=== PATIENT | female | born 1935 | race Caucasian/White ===

== ENCOUNTER 2017-11-09 09:39 | Inpatient (IN) ==
[2017-11-09 10:19] LABS: Baso % (Auto) 0.3 % (0.0-2.0); Eos # (Auto) 0.1 th/mm3 (0.0-0.4); Eos % (Auto) 1.1 % (0.0-4.0); Hematocrit 40.5 % (35.0-46.0); Hemoglobin 14.3 gm/dL (11.6-15.3); Lymph # (Auto) 0.8 th/mm3 (1.0-4.8); Lymph % (Auto) 13.1 % (9.0-44.0); Mean Corpuscular HGB Conc 35.3 % (32.0-36.0); Mean Corpuscular Hemoglobin 33.5 pg (27.0-34.0); Mean Corpuscular Volume 94.8 fL (80.0-100.0); Mean Platelet Volume 7.3 fL (7.0-11.0); Mono # (Auto) 0.5 th/mm3 (0.0-0.9); Mono % (Auto) 8.6 % (0.0-8.0); Neut # (Auto) 4.5 th/mm3 (1.8-7.7); Neut % (Auto) 76.9 % (16.0-70.0); Platelet Count 230 th/mm3 (150-450); Red Blood Count 4.27 mil/mm3 (4.00-5.30); Red Cell Distribution Width 12.9 % (11.6-17.2); White Blood Count 5.8 th/mm3 (4.0-11.0)
[2017-11-09 10:40] LABS: Bacteria,Urine Rare /hpf; Bilirubin,Urine Negative (Negative); Clarity,Urine Hazy (Clear); Color,Urine Yellow (Yellw/Straw); Glucose,Urine (UA) Negative (Negative); Leukocyte Esterase,Urine Large (Negative); Mucus,Urine Few /lpf (Occasional); Nitrite,Urine Positive (Negative); Specific Gravity,Urine 1.008 (1.002-1.035); Squamous Epithelial Cell,Urine <1 /hpf (0-5)
[2017-11-09 10:47] LABS: Alanine Aminotransferase 17 U/L (10-53); Albumin 3.2 g/dL (3.4-5.0); Anion Gap 8 meq/L (5-15); Aspartate Aminotransferase 17 U/L (15-37); Blood Urea Nitrogen 10 mg/dL (7-18); Calcium 8.4 mg/dL (8.5-10.1); Carbon Dioxide 28.7 meq/L (21.0-32.0); Chloride 95 meq/L (98-107); Glomerular Filtration Rate 73 mL/min (>89); Glucose,Random 120 mg/dL (74-106); Potassium 3.4 meq/L (3.5-5.1); Sodium 132 meq/L (136-145)
[2017-11-09 10:51] LABS: Alkaline Phosphatase 70 U/L (45-117); Total Protein 6.8 g/dL (6.4-8.2)
--- NOTE | 2017-11-09 11:13 | CT ---
EXAM DATE: 11/09/2017 11:07 AM EDT AGE/SEX: 82 years / Female INDICATIONS: Altered mental status fell eight days ago CLINICAL DATA: This is the patient's initial encounter. Patient reports that signs and symptoms have been present for 1 day and indicates a pain score of 0/10. MEDICAL/SURGICAL HISTORY: Hypertension. None. RADIATION DOSE: 33.86 CTDI (mGy) COMPARISON: [facility], CT HEAD W/O CONTRAST, 11/01/2017. . TECHNIQUE: CT of the head without contrast. Using automated exposure control and adjustment of the mA and/or kV according to patient size, radiation dose was kept as low as reasonably achievable to ob tain optimal diagnostic quality images. DICOM format image data is available electronically for revi ew and comparison. 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 There is no evidence of intracranial mass or hemor rhage. There is nothing to suggest acute infarction. The ventricles are symmetric and normal. Extracr anial structures are benign and intact. CONCLUSION: No acute intracranial injury . Electronically signed by: Willie Matamoros MD 11/09/2017 11:11 AM EDT
--- NOTE | 2017-11-09 11:37 | ED ---
HPI General Chief Complaint: Altered Mental Status Stated Complaint: Poss AMS Time Seen by Provider: 11/09/17 10:13 Source: patient Mode of arrival: ambulatory Limitations: no limitations History of Present Illness HPI narrative: 82-year-old female arrives due to altered mental status. In the ED exam room the patient offers no meaningful history. History is unobtainable based on bedside interview. Family reports increased incontinence. After speaking the patient's daughter we learned that she has had an abrupt decline in mental status. The patient lives at home with her son. The patient recently was lost to follow-up with Dr. Bardales as he retired. Related Data Home Medications Medication Instructions Recorded Confirmed hydrocodone-ibuprofen 1 tab PO TID 08/28/17 11/01/17 losartan 100 mg PO DAILY 08/28/17 11/01/17 sertraline 100 mg PO DAILY 08/28/17 11/01/17 aspirin 81 mg PO DAILY 11/01/17 11/01/17 simvastatin 40 mg PO DAILY 11/01/17 11/01/17 Allergies Allergy/AdvReac Type Severity Reaction Status Date / Time acetaminophen Allergy Severe Rash Verified 11/01/17 08:46 ciprofloxacin Allergy Severe UNKNOWN Verified 11/01/17 08:46 codeine Allergy Severe Rash Verified 11/01/17 08:46 diclofenac Allergy Severe UNKNOWN Verified 11/01/17 08:46 dicyclomine Allergy Severe UNKNOWN Verified 11/01/17 08:46 doxycycline Allergy Severe UNKNOWN Verified 11/01/17 08:46 duloxetine Allergy Severe UNKNOWN Verified 11/01/17 08:46 etodolac Allergy Severe Rash Verified 11/01/17 08:46 fexofenadine Allergy Severe UNKNOWN Verified 11/01/17 08:46 flurbiprofen Allergy Severe Rash Verified 11/01/17 08:46 gabapentin Allergy Severe UNKNOWN Verified 11/01/17 08:46 ibuprofen Allergy Severe Rash Verified 11/01/17 08:46 indomethacin Allergy Severe Rash Verified 11/01/17 08:46 ketoprofen Allergy Severe Rash Verified 11/01/17 08:46 ketorolac Allergy Severe Rash Verified 11/01/17 08:46 levofloxacin Allergy Severe UNKNOWN Verified 11/01/17 08:46 meloxicam Allergy Severe UNKNOWN Verified 11/01/17 08:46 morphine Allergy Severe Rash Verified 11/01/17 08:46 naproxen Allergy Severe Rash Verified 11/01/17 08:46 oxaprozin Allergy Severe Rash Verified 11/01/17 08:46 penicillin G Allergy Severe Rash Verified 11/01/17 08:46 pentazocine Allergy Severe UNKNOWN Verified 11/01/17 08:46 pregabalin Allergy Severe INCREASE Verified 11/01/17 08:46 BLOOD PRESSURE rabeprazole Allergy Severe UNKNOWN Verified 11/01/17 08:46 risedronate sodium Allergy Severe UNKNOWN Verified 11/01/17 08:46 Sulfa (Sulfonamide Allergy Severe Rash Verified 11/01/17 08:46 Antibiotics) zolpidem Allergy Severe UNKNOWN Verified 11/01/17 08:46 Review of Systems ROS Unobtainable ROS Unobtainable: unobtainable due to mental condition PMFSH Medical History Medical History History of hypercholesterolemia (Acute) History of hypertension (Acute) Surgical History Surgical History Status post surgical manipulation of ankle joint (Acute) History of right knee surgery (Acute) History of left knee surgery (Acute) Family History Family History Other Osteoarthritis Social History Social History Substance History: No History of Abuse Second Hand Smoke Exposure: No Smoking Status: Former smoker Tobacco Type: Cigarettes How Often Do You Have a Drink Containing Alcohol: Never Recent Travel in [facility] within the Last 8 Weeks: No Recent Out of Country Travel within the Last 8 Weeks: No Immunization History Tetanus Immunization: Unable to Assess Hx Influenza Vaccine This Season: No Exam Narrative Exam Narrative: GENERAL: 82-year-old female well-nourished well-developed no acute distress SKIN: Focused skin assessment warm/dry. HEAD: Atraumatic. Normocephalic. EYES: Pupils equal and round. No scleral icterus. No injection or drainage. ENT: No nasal bleeding or discharge. Mucous membranes pink and moist. NECK: Trachea midline. No JVD. CARDIOVASCULAR: Regular rate and rhythm. No murmur appreciated. RESPIRATORY: No accessory muscle use. Clear to auscultation. Breath sounds equal bilaterally. GASTROINTESTINAL: Soft. Minimal suprapubic tenderness palpation. MUSCULOSKELETAL: No obvious deformities. No clubbing. No cyanosis. No edema. NEUROLOGICAL: Patient answers questions. Memory is severely impaired. No focal cranial nerve deficit. Motor function is normal times all 4 extremities. PSYCHIATRIC: Reasonably cooperative. Pleasant. Course Initial Documented Vital Signs Temperature 98.1 F 11/09/17 09:57 Pulse Rate 64 11/09/17 09:57 Respiratory Rate 16 11/09/17 09:57 Blood Pressure 204/83 H 11/09/17 09:57 Pulse Oximetry 98 11/09/17 09:57 Last Documented Vital Signs Temperature 98.1 F 11/09/17 09:57 Pulse Rate 69 11/09/17 13:30 Respiratory Rate 19 11/09/17 13:30 Blood Pressure 188/122 H 11/09/17 13:30 Pulse Oximetry 100 11/09/17 13:30 Medical Decision Making MDM Narrative Medical decision making narrative: The patient has urinary tract infection with delirium. Patient will be admitted. Discussed with Dr. Johnston. 1 dose Rocephin started. Medical Screen Exam Complete: Yes Emergency Medical Condition: Yes Lab Data Lab results reviewed: Yes I reviewed the patient's lab results. Lab results narrative: EKG shows sinus rhythm with a rate of 60 normal axis intervals are noted in 3 and AVS which are nonspecific Urinalysis shows a UTI LFTs normal The patient received a dose of Rocephin here. Result diagrams: 11/09/17 10:00 11/09/17 10:00 Lab Results 11/09/17 11/09/17 11/09/17 Range/Units 10:00 10:00 10:00 WBC 5.8 (4.0-11.0) th/mm3 RBC 4.27 (4.00-5.30) mil/mm3 Hgb 14.3 (11.6-15.3) gm/dL Hct 40.5 (35.0-46.0) % MCV 94.8 (80.0-100.0) fL MCH 33.5 (27.0-34.0) pg MCHC 35.3 (32.0-36.0) % RDW 12.9 (11.6-17.2) % Plt Count 230 (150-450) th/mm3 MPV 7.3 (7.0-11.0) fL Neut % (Auto) 76.9 H (16.0-70.0) % Lymph % (Auto) 13.1 (9.0-44.0) % [place] % (Auto) 8.6 H (0.0-8.0) % Eos % (Auto) 1.1 (0.0-4.0) % Baso % (Auto) 0.3 (0.0-2.0) % Neut # (Auto) 4.5 (1.8-7.7) th/mm3 Lymph # (Auto) 0.8 L (1.0-4.8) th/mm3 [place] # (Auto) 0.5 (0.0-0.9) th/mm3 Eos # (Auto) 0.1 (0.0-0.4) th/mm3 Baso # (Auto) 0.0 (0.0-0.2) th/mm3 WBC Differential . Differential Comment Auto diff final Sodium 132 L (136-145) meq/L Potassium 3.4 L (3.5-5.1) meq/L Chloride 95 L (98-107) meq/L Carbon Dioxide 28.7 (21.0-32.0) meq/L Anion Gap 8 (5-15) meq/L BUN 10 (7-18) mg/dL Creatinine 0.76 (0.50-1.00) mg/dL Estimated GFR 73 L (>89) mL/min Random Glucose 120 H (74-106) mg/dL Calcium 8.4 L (8.5-10.1) mg/dL Total Bilirubin 0.5 (0.2-1.0) mg/dL AST 17 (15-37) U/L ALT 17 (10-53) U/L Alkaline Phosphatase 70 (45-117) U/L Troponin I Less than 0.02 L (0.02-0.05) ng/mL Total Protein 6.8 (6.4-8.2) g/dL Albumin 3.2 L (3.4-5.0) g/dL Urine Color Yellow (Yellw/Straw) Urine Clarity Hazy H (Clear) Urine pH 6.0 (5.0-8.5) Ur Specific [place] 1.008 (1.002-1.035) Urine Protein Negative (Neg-Trace) mg/dL Urine Glucose (UA) Negative (Negative) mg/dL Urine Ketones Negative (Negative) mg/dL Urine Occult Blood Negative (Negative) Urine Nitrate Positive H (Negative) Urine Bilirubin Negative (Negative) Urine Urobilinogen Less than 2 (Less than 2) mg/dL Ur Leukocyte Esterase Large H (Negative) Urine RBC 1 (0-3) /hpf Urine WBC 13 H (0-5) /hpf Urine WBC Clumps Rare H (None) Ur Squamous Epith Cells <1 (0-5) /hpf Urine Bacteria Rare H (None) /hpf Urine Mucus Few H (Occasional) /lpf Micro UA Comment Cath-culture ind Ur Microscopic Review Not Reportable Urine Culture Comments Cath-cult indicated Imaging Data Radiologist's impression: Head CT 11/09/17 10:13 CONCLUSION: No acute intracranial injury . Discharge Plan Discharge Disposition Patient Disposition: 30 Still Patient Physicians Team ED Provider: Julio Fletcher Primary Care Provider: UNKNOWN, Attending Provider: Julio Johnston Discharge Interventions Interventions: Vital Signs Last Done: 11/09/17 10:20 Status ED Status: Admitted Patient
--- NOTE | 2017-11-09 12:53 | P.HPIM ---
History of Present Illness Primary Care Physician: UNKNOWN History of Present Illness: Mrs. Park is an 82 year old female. She is brought in today due to progressive confussion. Sepsis is not present, but she has a UTI, which is likely causing a metabolic encephalopathy. Additionally, she has HTN Urgency. This might represet missed Losartan or reactivity with UTI. Patient is confused and not able to contribute to history. - Diagnosis (1) Urinary tract infection (2) Hypertensive urgency (3) Metabolic encephalopathy Review of Systems unobtainable due to mental condition, unobtainable due to mental status PMF - History History Provided By: Patient - Medical History Medical History: Medical History (Last Updated 11/01/17 @ 08:54 by Kika Rain RN) History of hypercholesterolemia (Acute) History of hypertension (Acute) - Surgical History Surgical History: Surgical History (Last Updated 11/01/17 @ 08:54 by Kika Rain RN) Status post surgical manipulation of ankle joint (Acute) History of right knee surgery (Acute) History of left knee surgery (Acute) - Family History Family History: Family History (Last Updated 11/09/17 @ 12:47 by Julio Johnston MD) Other Osteoarthritis - Tobacco History Second Hand Smoke Exposure: No Smoking Status: Former smoker Tobacco Type: Cigarettes - Alcohol History How Often Do You Have a Drink Containing Alcohol: Never - Substance Use History Substance History: No History of Abuse - Travel History Recent Travel in the [place] Within the Last 8 Weeks: No Recent Travel Out of the Country Within the Last 8 Weeks: No - Immunization History Tetanus Immunization: Unable to Assess Hx Influenza Vaccine This Season: No Medications and Allergies Active Medications: Active Medications Al Hydroxide/Mg Hydroxide (Milk Of Robert Carrillo) 30 ml PO Q12H PRN PRN Reason: Mild Constipation Clonidine HCl (Catapres) 0.1 mg PO Q6H PRN PRN Reason: SYS BP GREATER THAN 160 MMHG Heparin Sodium (Porcine) (Heparin Inj) 5,000 units SQ Q12H KI Sodium Chloride (Ns Inj) 1,000 mls @ 75 mls/hr IV.CONT .[id number] KI Non-Formulary Medication (Aspirin) 81 mg PO DAILY KI Non-Formulary Medication (Losartan [Losartan]) 100 mg PO DAILY KI Non-Formulary Medication (Simvastatin) 40 mg PO DAILY KI Ondansetron HCl (Zofran Inj) 4 mg IV.PUSH Q6H PRN PRN Reason: NAUSEA OR VOMITING Sertraline HCl (Zoloft) 100 mg PO DAILY KI Allergies Allergy/AdvReac Type Severity Reaction Status Date / Time acetaminophen Allergy Severe Rash Verified 11/01/17 08:46 ciprofloxacin Allergy Severe UNKNOWN Verified 11/01/17 08:46 codeine Allergy Severe Rash Verified 11/01/17 08:46 diclofenac Allergy Severe UNKNOWN Verified 11/01/17 08:46 dicyclomine Allergy Severe UNKNOWN Verified 11/01/17 08:46 doxycycline Allergy Severe UNKNOWN Verified 11/01/17 08:46 duloxetine Allergy Severe UNKNOWN Verified 11/01/17 08:46 etodolac Allergy Severe Rash Verified 11/01/17 08:46 fexofenadine Allergy Severe UNKNOWN Verified 11/01/17 08:46 flurbiprofen Allergy Severe Rash Verified 11/01/17 08:46 gabapentin Allergy Severe UNKNOWN Verified 11/01/17 08:46 ibuprofen Allergy Severe Rash Verified 11/01/17 08:46 indomethacin Allergy Severe Rash Verified 11/01/17 08:46 ketoprofen Allergy Severe Rash Verified 11/01/17 08:46 ketorolac Allergy Severe Rash Verified 11/01/17 08:46 levofloxacin Allergy Severe UNKNOWN Verified 11/01/17 08:46 meloxicam Allergy Severe UNKNOWN Verified 11/01/17 08:46 morphine Allergy Severe Rash Verified 11/01/17 08:46 naproxen Allergy Severe Rash Verified 11/01/17 08:46 oxaprozin Allergy Severe Rash Verified 11/01/17 08:46 penicillin G Allergy Severe Rash Verified 11/01/17 08:46 pentazocine Allergy Severe UNKNOWN Verified 11/01/17 08:46 pregabalin Allergy Severe INCREASE Verified 11/01/17 08:46 BLOOD PRESSURE rabeprazole Allergy Severe UNKNOWN Verified 11/01/17 08:46 risedronate sodium Allergy Severe UNKNOWN Verified 11/01/17 08:46 Sulfa (Sulfonamide Allergy Severe Rash Verified 11/01/17 08:46 Antibiotics) zolpidem Allergy Severe UNKNOWN Verified 11/01/17 08:46 Home Medications Medication Instructions Recorded Confirmed Type hydrocodone-ibuprofen 1 tab PO TID 08/28/17 11/01/17 History losartan 100 mg PO DAILY 08/28/17 11/01/17 History sertraline 100 mg PO DAILY 08/28/17 11/01/17 History aspirin 81 mg PO DAILY 11/01/17 11/01/17 History simvastatin 40 mg PO DAILY 11/01/17 11/01/17 History Exam Vital signs: Vital Signs 11/09/17 09:57 11/09/17 10:01 11/09/17 10:07 Temperature 98.1 F Pulse Rate 64 62 Respiratory Rate 16 Blood Pressure 204/83 H Pulse Oximetry 98 98 98 11/09/17 10:20 Temperature Pulse Rate Respiratory Rate Blood Pressure 187/79 H Pulse Oximetry Intake & Output 11/08/17 11/09/17 11/09/17 18:59 06:59 18:59 Intake Total 100 / 100 Balance 100 / 100 Weight 52.163 kg Intake: IV 100 / 100 Rocephin Inj 1,000 MG In NS Inj 100 / 100 100 ML @ 200 mls/hr IV.SIG ONCE ONE Rx#:[id number] Narrative: GENERAL: NAD, A&Ox1 HEAD: Normocephalic. NECK: Supple, trachea midline. No lymphadenopathy. EYES: No scleral icterus. No injection or drainage. CARDIOVASCULAR: Regular rate and rhythm without murmurs, gallops, or rubs. RESPIRATORY: Breath sounds equal bilaterally. No accessory muscle use. GASTROINTESTINAL: Abdomen soft, non-tender, nondistended. MUSCULOSKELETAL: No cyanosis, or edema. SKIN: Warm and dry. NEURO: No focal neurological deficits. Results - Labs CBC & Chem 7: 11/09/17 10:00 11/09/17 10:00 Labs: Short CBC 11/09/17 Range/Units 10:00 WBC 5.8 (4.0-11.0) th/mm3 Hgb 14.3 (11.6-15.3) gm/dL Hct 40.5 (35.0-46.0) % Plt Count 230 (150-450) th/mm3 BMP 11/09/17 10:00 Sodium 132 L Potassium 3.4 L Chloride 95 L Carbon Dioxide 28.7 BUN 10 Creatinine 0.76 Calcium 8.4 L Cardiac Enzymes 11/09/17 Range/Units 10:00 Troponin I Less than 0.02 L (0.02-0.05) ng/mL Liver Function 11/09/17 Range/Units 10:00 Total Bilirubin 0.5 (0.2-1.0) mg/dL AST 17 (15-37) U/L ALT 17 (10-53) U/L Alkaline Phosphatase 70 (45-117) U/L Albumin 3.2 L (3.4-5.0) g/dL Urine 11/09/17 Range/Units 10:00 Urine Color Yellow (Yellw/Straw) Urine Clarity Hazy H (Clear) Urine pH 6.0 (5.0-8.5) Ur Specific [place] 1.008 (1.002-1.035) Urine Protein Negative (Neg-Trace) mg/dL Urine Glucose (UA) Negative (Negative) mg/dL - Imaging Impressions Head CT 11/09/17 10:13 CONCLUSION: No acute intracranial injury . Caprini VTE Risk Assessment Caprini VTE Risk Assessment: Moderate/High Risk (score >= 2) Caprini Risk Assessment Model: Point Value = 1 Point Value = 2 Point Value = 3 Point Value = 5 Age 41-60 Minor surgery BMI > 25 kg/m2 Swollen legs Varicose veins or History of unexplained or recurrent spontaneous Oral contraceptives or hormone replacement Sepsis (< 1 month) Serious lung disease, including pneumonia (< 1 month) Abnormal pulmonary function Acute myocardial infarction Congestive heart failure (< 1 month) History of inflammatory bowel disease Medical patient at bed rest Age 61-74 Arthroscopic surgery Major open surgery (> 45 min) Laparoscopic surgery (> 45 min) Malignancy Confined to bed (> 72 hours) Immobilizing plaster cast Central venous access Age >= 75 History of VTE Family history of VTE Factor V Leiden Prothrombin [id number] Lupus anticoagulant Anticardiolipin antibodies Elevated serum homocysteine Heparin-induced thrombocytopenia Other congenital or acquired thrombophilia Stroke (< 1 month) Elective arthroplasty Hip, pelvis, or leg fracture Acute spinal cord injury (< 1 month) Prophylaxis Regimen: Total Risk Factor Score Risk Level Prophylaxis Regimen 0-1 Low Early ambulation 2 Moderate Order ONE of the following: *Sequential Compression Device (SCD) *Heparin 5000 units SQ BID 3-4 Higher Order ONE of the following medications: *Heparin 5000 units SQ TID *Enoxaparin/Lovenox 40 mg SQ daily (WT < 150 kg, CrCl > 30 mL/min) *Enoxaparin/Lovenox 30 mg SQ daily (WT < 150 kg, CrCl > 10-29 mL/min) *Enoxaparin/Lovenox 30 mg SQ BID (WT < 150 kg, CrCl > 30 mL/min) AND/OR *Sequential Compression Device (SCD) 5 or more Highest Order ONE of the following medications: *Heparin 5000 units SQ TID (Preferred with Epidurals) *Enoxaparin/Lovenox 40 mg SQ daily (WT < 150 kg, CrCl > 30 mL/min) *Enoxaparin/Lovenox 30 mg SQ daily (WT < 150 kg, CrCl > 10-29 mL/min) *Enoxaparin/Lovenox 30 mg SQ BID (WT < 150 kg, CrCl > 30 mL/min) AND *Sequential Compression Device (SCD) Assessment and Plan - Assessment (1) Urinary tract infection Code(s): N39.0 - Urinary tract infection, site not specified Status: Acute (2) Hypertensive urgency Code(s): I16.0 - Hypertensive urgency Status: Acute (3) Metabolic encephalopathy Code(s): G93.41 - Metabolic encephalopathy Status: Acute - Plan 82-year-old female admitted secondary to urinary tract infection with encephalopathy and hypertensive urgency Urinary tract infection No sepsis Continue Rocephin as a treatment Probiotics Follow cultures Hypertensive Urgency Likely reactive (UTI) Possible missed medication Provide a dose of Losartan for today As needed clonidine Follow blood pressures Metabolic encephalopathy Likely related to urinary tract infection Supportive care Treat infection as above DVT prophylaxis Heparin
[2017-11-09] MEDS: Sod Chloride 0.9% Inj 1,000 ML IV.CONT SCH (13:29)
[2017-11-09] MEDS: Lactobacillus Acidophilus/L. Spores Tablet PO SCH ×2 (13:29→17:49)
[2017-11-09] MEDS: Heparin - SQ 10,000 UNITS/ML Vial SQ SCH (17:49)
--- NOTE | 2017-11-09 18:32 | ECG ---
Date Performed: 11/09/2017 Time Performed: 10:26:29 PTAGE: 82 years EKG: Sinus rhythm NORMAL ECG PREVIOUS TRACING : 11/01/2017 10.10 Since the previous tracing, no significant change noted DOCTOR: Guerrero Vasquez Interpretating Date/Time 11/09/2017 18:30:35
[2017-11-10] MEDS: Heparin - SQ 10,000 UNITS/ML Vial SQ SCH ×2 (03:55→14:25)
[2017-11-10] MEDS: Sod Chloride 0.9% Inj 1,000 ML IV.CONT SCH ×2 (06:16→19:11)
[2017-11-10 08:27] LABS: Baso % (Auto) 0.7 % (0.0-2.0); Eos # (Auto) 0.1 th/mm3 (0.0-0.4); Eos % (Auto) 1.7 % (0.0-4.0); Hematocrit 36.8 % (35.0-46.0); Hemoglobin 13.2 gm/dL (11.6-15.3); Lymph # (Auto) 1.1 th/mm3 (1.0-4.8); Lymph % (Auto) 19.5 % (9.0-44.0); Mean Corpuscular HGB Conc 35.8 % (32.0-36.0); Mean Corpuscular Hemoglobin 34.3 pg (27.0-34.0); Mean Corpuscular Volume 95.8 fL (80.0-100.0); Mean Platelet Volume 7.5 fL (7.0-11.0); Mono # (Auto) 0.5 th/mm3 (0.0-0.9); Mono % (Auto) 9.1 % (0.0-8.0); Neut # (Auto) 3.8 th/mm3 (1.8-7.7); Platelet Count 216 th/mm3 (150-450); Red Blood Count 3.84 mil/mm3 (4.00-5.30); Red Cell Distribution Width 12.4 % (11.6-17.2); White Blood Count 5.6 th/mm3 (4.0-11.0)
[2017-11-10] MEDS: Lactobacillus Acidophilus/L. Spores Tablet PO SCH ×3 (08:42→17:28)
[2017-11-10] MEDS: Sertraline 100 MG Tablet PO SCH (08:43)
[2017-11-10 08:51] LABS: Albumin 2.8 g/dL (3.4-5.0); Anion Gap 8 meq/L (5-15); Aspartate Aminotransferase 14 U/L (15-37); Blood Urea Nitrogen 11 mg/dL (7-18); Calcium 8.3 mg/dL (8.5-10.1); Carbon Dioxide 25.2 meq/L (21.0-32.0); Chloride 102 meq/L (98-107); Glomerular Filtration Rate Greater Than 89 mL/min (>89); Glucose,Random 103 mg/dL (74-106); Potassium 3.5 meq/L (3.5-5.1); Sodium 135 meq/L (136-145)
[2017-11-10 08:52] LABS: Alanine Aminotransferase 15 U/L (10-53)
[2017-11-10 08:54] LABS: Alkaline Phosphatase 64 U/L (45-117); Total Protein 5.9 g/dL (6.4-8.2)
--- NOTE | 2017-11-10 09:36 | P.PNIM ---
Subjective Interval history: Patient remains confused/encephalopathic. Not stable for discharge to home. She is unable to provide any history. Blood pressures have improved. Physical Exam Vital signs: Vital Signs 11/09/17 09:57 11/09/17 10:01 11/09/17 10:07 Temperature 98.1 F Pulse Rate 64 62 Respiratory Rate 16 Blood Pressure 204/83 H Pulse Oximetry 98 98 98 11/09/17 10:20 11/09/17 13:30 11/09/17 16:00 Temperature 97.4 F L Pulse Rate 69 66 Respiratory Rate 19 18 Blood Pressure 187/79 H 188/122 H 154/69 H Pulse Oximetry 100 96 11/09/17 20:00 11/10/17 00:00 11/10/17 04:00 Temperature 97.6 F 97.3 F L 98.3 F Pulse Rate 67 73 Respiratory Rate 20 16 Blood Pressure 150/58 H 174/74 H 148/67 H Pulse Oximetry 94 L 94 L 96 11/10/17 08:00 Temperature 97.3 F L Pulse Rate 68 Respiratory Rate 18 Blood Pressure 157/57 H Pulse Oximetry 95 Intake & Output 11/09/17 11/10/17 11/10/17 18:59 06:59 18:59 Intake Total 220 / 220 1240 / 1240 Balance 220 / 220 1240 / 1240 Weight 52.163 kg Intake: IV 100 / 100 1000 / 1000 NS Inj 1,000 ML @ 75 mls/hr IV. 1000 / 1000 CONT .[id number] [facility] Rx#:[id number] Rocephin Inj 1,000 MG In NS Inj 100 / 100 100 ML @ 200 mls/hr IV.SIG ONCE ONE Rx#:[id number] Oral 120 / 120 240 / 240 Other: # Voids 1 # Incontinent Voids 2 # Urine Diapers 2 Narrative: GENERAL: NAD, A&Ox1 HEAD: Normocephalic. NECK: Supple, trachea midline. No lymphadenopathy. EYES: No scleral icterus. No injection or drainage. CARDIOVASCULAR: Regular rate and rhythm without murmurs, gallops, or rubs. RESPIRATORY: Breath sounds equal bilaterally. No accessory muscle use. GASTROINTESTINAL: Abdomen soft, non-tender, nondistended. MUSCULOSKELETAL: No cyanosis, or edema. SKIN: Warm and dry. NEURO: No focal neurological deficits. Results - Labs CBC & Chem 7: 11/10/17 07:26 11/10/17 07:26 Laboratory Results - last 24 hr 11/09/17 11/09/17 11/09/17 10:00 10:00 10:00 WBC 5.8 RBC 4.27 Hgb 14.3 Hct 40.5 MCV 94.8 MCH 33.5 MCHC 35.3 RDW 12.9 Plt Count 230 MPV 7.3 Neut % (Auto) 76.9 H Lymph % (Auto) 13.1 [place] % (Auto) 8.6 H Eos % (Auto) 1.1 Baso % (Auto) 0.3 Neut # (Auto) 4.5 Lymph # (Auto) 0.8 L [place] # (Auto) 0.5 Eos # (Auto) 0.1 Baso # (Auto) 0.0 WBC Differential . Differential Comment Auto diff final Sodium 132 L Potassium 3.4 L Chloride 95 L Carbon Dioxide 28.7 Anion Gap 8 BUN 10 Creatinine 0.76 Estimated GFR 73 L Random Glucose 120 H Calcium 8.4 L Total Bilirubin 0.5 AST 17 ALT 17 Alkaline Phosphatase 70 Troponin I Less than 0.02 L Total Protein 6.8 Albumin 3.2 L Urine Color Yellow Urine Clarity Hazy H Urine pH 6.0 Ur Specific [place] 1.008 Urine Protein Negative Urine Glucose (UA) Negative Urine Ketones Negative Urine Occult Blood Negative Urine Nitrate Positive H Urine Bilirubin Negative Urine Urobilinogen Less than 2 Ur Leukocyte Esterase Large H Urine RBC 1 Urine WBC 13 H Urine WBC Clumps Rare H Ur Squamous Epith Cells <1 Urine Bacteria Rare H Urine Mucus Few H Micro UA Comment Cath-culture ind Ur Microscopic Review Not Reportable Urine Culture Comments Cath-cult indicated 11/10/17 11/10/17 07:26 07:26 WBC 5.6 RBC 3.84 L Hgb 13.2 Hct 36.8 MCV 95.8 MCH 34.3 H MCHC 35.8 RDW 12.4 Plt Count 216 MPV 7.5 Neut % (Auto) 69.0 Lymph % (Auto) 19.5 [place] % (Auto) 9.1 H Eos % (Auto) 1.7 Baso % (Auto) 0.7 Neut # (Auto) 3.8 Lymph # (Auto) 1.1 [place] # (Auto) 0.5 Eos # (Auto) 0.1 Baso # (Auto) 0.0 WBC Differential . Differential Comment Auto diff final Sodium 135 L Potassium 3.5 Chloride 102 Carbon Dioxide 25.2 Anion Gap 8 BUN 11 Creatinine 0.59 Estimated GFR Greater than 89 Random Glucose 103 Calcium 8.3 L Total Bilirubin 0.3 AST 14 L ALT 15 Alkaline Phosphatase 64 Troponin I Total Protein 5.9 L D Albumin 2.8 L Urine Color Urine Clarity Urine pH Ur Specific [place] Urine Protein Urine Glucose (UA) Urine Ketones Urine Occult Blood Urine Nitrate Urine Bilirubin Urine Urobilinogen Ur Leukocyte Esterase Urine RBC Urine WBC Urine WBC Clumps Ur Squamous Epith Cells Urine Bacteria Urine Mucus Micro UA Comment Ur Microscopic Review Urine Culture Comments - Imaging Impressions Head CT 11/09/17 10:13 CONCLUSION: No acute intracranial injury . Assessment and Plan - Assessment (1) Urinary tract infection Code(s): N39.0 - Urinary tract infection, site not specified Status: Acute (2) Hypertensive urgency Code(s): I16.0 - Hypertensive urgency Status: Acute (3) Metabolic encephalopathy Code(s): G93.41 - Metabolic encephalopathy Status: Acute - Plan 82-year-old female admitted secondary to urinary tract infection with encephalopathy and hypertensive urgency Blood pressures have improved. Encephalopathy is not improved. Patient not medically stable for discharge at this point. Continue supportive care monitor for improvement in her encephalopathy. Urinary tract infection No sepsis Continue Rocephin as a treatment Probiotics Follow cultures Hypertensive Urgency Improved Continue losartan. As needed clonidine Follow blood pressures Metabolic encephalopathy Likely related to urinary tract infection Supportive care Treat infection as above DVT prophylaxis Heparin
[2017-11-11] MEDS: Heparin - SQ 10,000 UNITS/ML Vial SQ SCH ×2 (02:51→15:34)
[2017-11-11] MEDS: Sod Chloride 0.9% Inj 1,000 ML IV.CONT SCH ×2 (04:22→21:56)
[2017-11-11] MEDS: Sertraline 100 MG Tablet PO SCH (08:17)
[2017-11-11] MEDS: Lactobacillus Acidophilus/L. Spores Tablet PO SCH ×3 (08:20→21:02)
--- NOTE | 2017-11-11 11:21 | P.PNIM ---
Subjective Interval history: Mental status is improving compared to admit. Patient complains of weakness. She does not feel like she can walk. Physical Exam Vital signs: Vital Signs 11/10/17 12:00 11/10/17 15:22 11/10/17 20:00 Temperature 98.0 F 97.3 F L 97.6 F Pulse Rate 64 69 80 Respiratory Rate 18 17 16 Blood Pressure 183/80 H 194/83 H 147/67 H Pulse Oximetry 94 L 94 L 97 11/11/17 00:00 11/11/17 04:00 11/11/17 08:00 Temperature 97.9 F 97.9 F 97.8 F Pulse Rate 70 65 67 Respiratory Rate 18 16 18 Blood Pressure 178/79 H 122/74 208/90 H Pulse Oximetry 97 98 97 11/11/17 08:47 Temperature Pulse Rate Respiratory Rate Blood Pressure Pulse Oximetry 98 Intake & Output 11/10/17 11/11/17 11/11/17 18:59 06:59 18:59 Intake Total 600 / 600 1720 / 1720 Balance 600 / 600 1720 / 1720 Intake: IV 100 / 100 1000 / 1000 NS Inj 1,000 ML @ 75 mls/hr IV. 1000 / 1000 CONT .[id number] KI Rx#:[id number] Rocephin Inj 1,000 MG In NS Inj 100 / 100 100 ML @ 200 mls/hr IV.SIG Q24H KI Rx#:[id number] Oral 500 / 500 720 / 720 Other: # Voids 4 # Urine Diapers 3 Narrative: GENERAL: NAD, A&Ox1 HEAD: Normocephalic. NECK: Supple, trachea midline. No lymphadenopathy. EYES: No scleral icterus. No injection or drainage. CARDIOVASCULAR: Regular rate and rhythm without murmurs, gallops, or rubs. RESPIRATORY: Breath sounds equal bilaterally. No accessory muscle use. GASTROINTESTINAL: Abdomen soft, non-tender, nondistended. MUSCULOSKELETAL: No cyanosis, or edema. SKIN: Warm and dry. NEURO: No focal neurological deficits. Results - Labs CBC & Chem 7: 11/10/17 07:26 11/10/17 07:26 Laboratory Results - last 24 hr 11/09/17 10:00 Urine Color Yellow Urine Clarity Hazy H Urine pH 6.0 Ur Specific [place] 1.008 Urine Protein Negative Urine Glucose (UA) Negative Urine Ketones Negative Urine Occult Blood Negative Urine Nitrate Positive H Urine Bilirubin Negative Urine Urobilinogen Less than 2 Ur Leukocyte Esterase Large H Urine RBC 1 Urine WBC 13 H Urine WBC Clumps Rare H Ur Squamous Epith Cells <1 Urine Bacteria Rare H Urine Mucus Few H Micro UA Comment Cath-culture ind Urine Culture Comments Cath-cult indicated Microbiology 11/09/17 10:00 Clean Catch Urine Urine Culture - Preliminary gram negative rods Assessment and Plan - Assessment (1) Urinary tract infection Code(s): N39.0 - Urinary tract infection, site not specified Status: Acute (2) Hypertensive urgency Code(s): I16.0 - Hypertensive urgency Status: Acute (3) Metabolic encephalopathy Code(s): G93.41 - Metabolic encephalopathy Status: Acute - Plan 82-year-old female admitted secondary to urinary tract infection with encephalopathy and hypertensive urgency Initiate physical therapy. Encephalopathy is improving today. Mental status not back to baseline yet. Urinary tract infection No sepsis Continue Rocephin as a treatment Probiotics Follow cultures Hypertensive Urgency Labile Confusion is limiting PO options of treatment Continue losartan. As needed clonidine clonidine patch Follow blood pressures Metabolic encephalopathy Likely related to urinary tract infection Supportive care Treat infection as above DVT prophylaxis Heparin
[2017-11-12] MEDS: Heparin - SQ 10,000 UNITS/ML Vial SQ SCH ×2 (02:55→14:11)
[2017-11-12] MEDS: Lactobacillus Acidophilus/L. Spores Tablet PO SCH ×3 (08:30→17:09)
[2017-11-12] MEDS: Sertraline 100 MG Tablet PO SCH (08:30)
[2017-11-12] MEDS: Sod Chloride 0.9% Inj 1,000 ML IV.CONT SCH (08:30)
--- NOTE | 2017-11-12 12:59 | P.PN ---
Subjective Interval history: Patient doing well. She is feeding, voiding, and stooling well. Patient reports that she feels that she is ready to go home and does not know why she has to stay here. She has no overnight concerns. Physical Exam Vital signs: Vital Signs 11/11/17 17:20 11/11/17 18:07 11/11/17 20:00 Temperature 97.2 F L 98.1 F Pulse Rate 63 64 Respiratory Rate 16 16 Blood Pressure 177/93 H 169/72 H Pulse Oximetry 98 98 98 11/12/17 00:00 11/12/17 04:00 11/12/17 08:00 Temperature 97.2 F L 98.4 F 97.8 F Pulse Rate 60 80 63 Respiratory Rate 16 22 18 Blood Pressure 146/76 H 160/87 H 156/97 H Pulse Oximetry 97 94 L 98 Intake & Output 11/11/17 11/12/17 11/12/17 18:59 06:59 18:59 Intake Total 1240 / 1240 580 / 580 1100 / 1100 Balance 1240 / 1240 580 / 580 1100 / 1100 Intake: IV 1000 / 1000 100 / 100 1100 / 1100 NS Inj 1,000 ML @ 75 mls/hr IV. 900 / 900 100 / 100 1000 / 1000 CONT .[id number] KI Rx#:[id number] Rocephin Inj 1,000 MG In NS Inj 100 / 100 100 / 100 100 ML @ 200 mls/hr IV.SIG Q24H KI Rx#:[id number] Oral 240 / 240 480 / 480 Other: # Voids 2 # Incontinent Voids 1 # Urine Diapers 3 Date of Last Bowel Movement 11/11/17 11/11/17 # Bowel Movements 1 Narrative: GENERAL: thin, female, in NAD. HEAD: Normocephalic. NECK: Supple, trachea midline. No lymphadenopathy. EYES: No scleral icterus. No injection or drainage. CARDIOVASCULAR: Regular rate and rhythm without murmurs, gallops, or rubs. RESPIRATORY: Breath sounds equal bilaterally. No accessory muscle use. GASTROINTESTINAL: Abdomen soft, non-tender, nondistended. MUSCULOSKELETAL: No cyanosis, or edema. SKIN: Warm and dry. NEURO: AAOx2. Results - Labs CBC & Chem 7: 11/10/17 07:26 11/10/17 07:26 Microbiology 11/09/17 10:00 Clean Catch Urine Urine Culture - Final Enterobacter cloacae Assessment and Plan - Assessment (1) Urinary tract infection Code(s): N39.0 - Urinary tract infection, site not specified Status: Acute (2) Hypertensive urgency Code(s): I16.0 - Hypertensive urgency Status: Resolved (3) Metabolic encephalopathy Code(s): G93.41 - Metabolic encephalopathy Status: Acute - Plan 82-year-old CF admitted secondary to urinary tract infection with encephalopathy and hypertensive urgency, HD#4 1. Urinary tract infection, Enterobacter Sensitive to Cephalosporins per Urine Cx Stop Rocephin today and transition to Keflex 500mg BID to completed total of 7 days Probiotics 2. Hypertensive Urgency- improved BP still mildly elevated Cont. Losartan 100mg QD, start Norvasc 5mg QD Clonidine patch PRN Cont. to monitor BP's 3. Metabolic encephalopathy- improved Likely worsened by acute urinary tract infection Supportive care Case mgmt contacted son on HIPAA do determine baseline as patient was receiving assistance with ADL's prior to admission 4. HLD: cont. statin 5. Hyponatremia: improved today, likely due to SSRI. 6. DVT prophylaxis: Heparin
[2017-11-12] MEDS: amLODIPine 5 MG Tablet PO SCH (17:09)
[2017-11-13] MEDS: Sod Chloride 0.9% Inj 1,000 ML IV.CONT SCH ×2 (01:42→10:41)
[2017-11-13] MEDS: Heparin - SQ 10,000 UNITS/ML Vial SQ SCH ×2 (05:41→15:32)
[2017-11-13] MEDS: Lactobacillus Acidophilus/L. Spores Tablet PO SCH ×3 (08:38→17:16)
[2017-11-13] MEDS: amLODIPine 5 MG Tablet PO SCH (08:38)
[2017-11-13] MEDS: Sertraline 100 MG Tablet PO SCH (08:39)
[2017-11-13 09:51] LABS: Hematocrit 40.9 % (35.0-46.0); Hemoglobin 14.3 gm/dL (11.6-15.3); Mean Corpuscular Hemoglobin 33.5 pg (27.0-34.0); Mean Corpuscular Volume 95.7 fL (80.0-100.0); Mean Platelet Volume 7.5 fL (7.0-11.0); Platelet Count 233 th/mm3 (150-450); Red Blood Count 4.28 mil/mm3 (4.00-5.30); Red Cell Distribution Width 12.6 % (11.6-17.2); White Blood Count 5.9 th/mm3 (4.0-11.0)
[2017-11-13 10:14] LABS: Albumin 3.1 g/dL (3.4-5.0); Anion Gap 9 meq/L (5-15); Aspartate Aminotransferase 15 U/L (15-37); Blood Urea Nitrogen 8 mg/dL (7-18); Calcium 8.7 mg/dL (8.5-10.1); Carbon Dioxide 28.6 meq/L (21.0-32.0); Chloride 96 meq/L (98-107); Glomerular Filtration Rate Greater Than 89 mL/min (>89); Glucose,Random 115 mg/dL (74-106); Magnesium 2.1 mg/dL (1.5-2.5); Potassium 3.3 meq/L (3.5-5.1); Sodium 134 meq/L (136-145)
[2017-11-13 10:16] LABS: Alanine Aminotransferase 16 U/L (10-53)
[2017-11-13 10:18] LABS: Alkaline Phosphatase 73 U/L (45-117); Total Protein 6.6 g/dL (6.4-8.2)
--- NOTE | 2017-11-13 13:56 | P.PNIM ---
Subjective Interval history: Patient seen and examined for follow-up of encephalopathy and UTI. Patient remains very confused. She rambles on incoherently and yells when she is touched. No meaningful history obtained. Physical Exam Vital signs: Vital Signs 11/12/17 14:30 11/12/17 19:35 11/12/17 23:30 Temperature 97.4 F L 97.4 F L 98.2 F Pulse Rate 76 77 68 Respiratory Rate 18 18 18 Blood Pressure 166/87 H 178/84 H 176/77 H Pulse Oximetry 98 98 96 11/13/17 02:00 11/13/17 04:14 11/13/17 08:00 Temperature 97.3 F L 97.4 F L Pulse Rate 61 68 Respiratory Rate 18 18 20 Blood Pressure 166/72 H 182/85 H Pulse Oximetry 97 99 11/13/17 12:00 Temperature 97.2 F L Pulse Rate 64 Respiratory Rate 20 Blood Pressure 157/67 H Pulse Oximetry 94 L Intake & Output 11/12/17 11/13/17 11/13/17 18:59 06:59 18:59 Intake Total 1100 / 1100 1000 / 1000 Balance 1100 / 1100 1000 / 1000 Intake: IV 1100 / 1100 1000 / 1000 NS Inj 1,000 ML @ 75 mls/hr IV. 1000 / 1000 1000 / 1000 CONT .[id number] KI Rx#:[id number] Rocephin Inj 1,000 MG In NS Inj 100 / 100 100 ML @ 200 mls/hr IV.SIG Q24H KI Rx#:[id number] Other: # Voids 4 # Incontinent Voids 1 Date of Last Bowel Movement 11/12/17 11/12/17 11/12/17 # Bowel Movements 1 Narrative: GENERAL: Thin elderly female resting in bed in [facility]. SKIN: Warm and dry. HEART: RRR no m/r/g. LUNGS: CTAB without wheezes or crackles. ABDOMEN: +BS, soft, NT, ND. EXTREMITIES: No LE edema. NEURO: Awake but not oriented at all. Grossly confused. Results - Labs CBC & Chem 7: 11/13/17 08:44 11/13/17 08:44 Laboratory Results - last 24 hr 11/13/17 11/13/17 08:44 08:44 WBC 5.9 RBC 4.28 Hgb 14.3 Hct 40.9 MCV 95.7 MCH 33.5 MCHC 35.0 RDW 12.6 Plt Count 233 MPV 7.5 Sodium 134 L Potassium 3.3 L Chloride 96 L Carbon Dioxide 28.6 Anion Gap 9 BUN 8 Creatinine 0.53 Estimated GFR Greater than 89 Random Glucose 115 H Calcium 8.7 Magnesium 2.1 Total Bilirubin 0.4 AST 15 ALT 16 Alkaline Phosphatase 73 Total Protein 6.6 D Albumin 3.1 L Microbiology 11/09/17 10:00 Clean Catch Urine Urine Culture - Final Enterobacter cloacae Assessment and Plan - Assessment (1) Urinary tract infection Code(s): N39.0 - Urinary tract infection, site not specified Status: Acute (2) Hypertensive urgency Code(s): I16.0 - Hypertensive urgency Status: Resolved (3) Metabolic encephalopathy Code(s): G93.41 - Metabolic encephalopathy Status: Acute - Plan 82-year-old female with dementia, hypertension, and hyperlipidemia admitted secondary to urinary tract infection with encephalopathy and hypertensive urgency. 1. UTI UA on admission notable for positive nitrates and leukocyte esterase Culture growing Enterobacter sensitive to cephalosporins Continue Keflex Probiotics while on antibiotics 2. Hypertensive BP still mildly elevated Continue losartan Increase Norvasc to 10 mg Clonidine as needed Continue monitor 3. Metabolic encephalopathy Patient remains confused Likely worsened by acute urinary tract infection CT head on admission negative Supportive care Off of restraints as of this morning. Will need to be off restraints 24 hours before acceptance into sniff 4. Hyperlipidemia Continue statin 5. Chronic hyponatremia Stable Likely secondary to SSRI 6. Hypokalemia Start daily KCl 20 mEq 7. 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
[2017-11-14] MEDS: Sod Chloride 0.9% Inj 1,000 ML IV.CONT SCH (00:36)
[2017-11-14] MEDS: Heparin - SQ 10,000 UNITS/ML Vial SQ SCH ×2 (03:00→15:59)
[2017-11-14 07:25] LABS: Potassium 3.2 meq/L (3.5-5.1)
[2017-11-14 07:27] LABS: Calcium 8.9 mg/dL (8.5-10.1); Carbon Dioxide 26.2 meq/L (21.0-32.0)
[2017-11-14] MEDS: amLODIPine 10 MG Tablet PO SCH (08:47)
[2017-11-14] MEDS: Lactobacillus Acidophilus/L. Spores Tablet PO SCH ×3 (08:47→17:52)
[2017-11-14] MEDS: Sertraline 100 MG Tablet PO SCH (08:48)
--- NOTE | 2017-11-14 08:55 | P.PNIM ---
Subjective Interval history: Pt seen and examined ambulating the halls with PT and again back in her room. She is completely confused. She does not speak in sentences. She speaks out random numbers and letters and occasionally "[place]." She does not follow directions. She screams when I try and examine her. She keeps her covers drawn over her face when she is in bed or in the chair. Per RN, patient sang the ABC song for four hours straight in the night. Physical Exam Vital signs: Vital Signs 11/13/17 12:00 11/13/17 16:00 11/13/17 20:00 Temperature 97.2 F L 97.3 F L 97.5 F L Pulse Rate 64 62 66 Respiratory Rate 20 20 19 Blood Pressure 157/67 H 167/74 H 175/77 H Pulse Oximetry 94 L 98 99 11/14/17 00:00 11/14/17 04:00 11/14/17 08:00 Temperature 97.5 F L 97.6 F 97.0 F L Pulse Rate 69 67 81 Respiratory Rate 18 18 19 Blood Pressure 141/63 H 166/89 H 178/77 H Pulse Oximetry 95 94 L 98 Intake & Output 11/13/17 11/14/17 11/14/17 18:59 06:59 18:59 Intake Total 600 / 600 Balance 600 / 600 Intake: Oral 600 / 600 Other: # Voids 2 Date of Last Bowel Movement 11/12/17 11/12/17 11/12/17 Narrative: GENERAL: Thin elderly female sitting in chair holding covers over her face. SKIN: Warm and dry. HEART: RRR no m/r/g. LUNGS: CTAB without wheezes or crackles. EXTREMITIES: No LE edema. NEURO: Awake but not oriented at all. Grossly confused. Results - Labs CBC & Chem 7: 11/13/17 08:44 11/14/17 06:39 Laboratory Results - last 24 hr 11/13/17 11/13/17 11/14/17 08:44 08:44 06:39 WBC 5.9 RBC 4.28 Hgb 14.3 Hct 40.9 MCV 95.7 MCH 33.5 MCHC 35.0 RDW 12.6 Plt Count 233 MPV 7.5 Sodium 134 L 136 Potassium 3.3 L 3.2 L Chloride 96 L 98 Carbon Dioxide 28.6 26.2 Anion Gap 9 12 BUN 8 14 Creatinine 0.53 0.75 Estimated GFR Greater than 89 74 L Random Glucose 115 H 120 H Calcium 8.7 8.9 Magnesium 2.1 Total Bilirubin 0.4 AST 15 ALT 16 Alkaline Phosphatase 73 Total Protein 6.6 D Albumin 3.1 L Assessment and Plan - Assessment (1) Urinary tract infection Code(s): N39.0 - Urinary tract infection, site not specified Status: Acute (2) Hypertensive urgency Code(s): I16.0 - Hypertensive urgency Status: Resolved (3) Metabolic encephalopathy Code(s): G93.41 - Metabolic encephalopathy Status: Acute - Plan 82-year-old female with dementia, hypertension, and hyperlipidemia admitted secondary to urinary tract infection with encephalopathy and hypertensive urgency. 1. UTI UA on admission notable for positive nitrates and leukocyte esterase Culture growing Enterobacter sensitive to cephalosporins Had been transitioned to PO Keflex but now refusing meds so will restart Rocephin 2. Metabolic encephalopathy Patient remains significantly confused, per neighbors that visited yesterday this is new and has not responded to treatment of urinary infection CT head on admission negative Now refusing PO meds and not eating Palliative care consulted We will also consult neurology to evaluate for any other causes of acutely worsening dementia She lost her in the past year and depression could be presenting as pseudodementia but she is already being treated with Zoloft Check RPR, thiamine, B12, and TSH 3. Hypertension BP still mildly elevated Continue losartan and Norvasc Clonidine as needed Continue monitor Refusing PO now. Will provide Vasotec IV PRN 4. Hyperlipidemia Continue statin 5. Chronic hyponatremia Stable Likely secondary to SSRI 6. Hypokalemia Replete with KCl in IV fluids 7. 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 Patient with ongoing confusion and incoherence. Not participating in care.
[2017-11-14] MEDS ORDERED: KCL 10 mEq/D5W/NaCl 0.45% Inj 1,000 ML IV.CONT SCH (12:30)
[2017-11-14] MEDS: KCL 20 mEq/D5W/NaCl 0.45% Inj 1,000 ML IV.CONT SCH (13:10)
[2017-11-14 15:08] LABS: Thyroid Stimulating Hormone 1.58 uIU/mL (0.358-3.740)
--- NOTE | 2017-11-14 16:46 | P.CONNEU ---
History of Present Illness Service: Neurology Primary Care Provider: UNKNOWN Chief Complaint: Confusion History of Present Illness: 82-year-old female admitted for confusion. Irene to be related to urinary tract infection and hypertension. Her confusion has persisted neurology was consulted for further evaluation. Patient is a poor historian no family members available at present. Unclear if there is any underlying history of dementia. She had a CT brain scan which did not show any acute lesion. Review of Systems All other systems reviewed negative except as stated in HPI [facility] - History History Provided By: Patient - Medical History Medical History: Medical History (Last Reviewed 11/15/17 @ 07:57 by Sheyla Bundy) Irritable bowel syndrome (Acute) Osteoarthritis (Acute) Barretts esophagus (Acute) History of hypercholesterolemia (Acute) History of hypertension (Acute) H. pylori infection H/O: hysterectomy Normal colonoscopy - Surgical History Surgical History: Surgical History (Last Updated 11/14/17 @ 15:03 by [employer] TECHNICIAN) History of esophagogastroduodenoscopy (EGD) History of left knee surgery History of right knee surgery Status post surgical manipulation of ankle joint - Family History Family History: Family History (Last Reviewed 11/15/17 @ 07:58 by Sheyla Bundy) Other Osteoarthritis - Tobacco History Second Hand Smoke Exposure: No Smoking Status: Cognitive impairment Tobacco Type: Cigarettes - Alcohol History How Often Do You Have a Drink Containing Alcohol: Unable to Obtain - Substance Use History Substance History: No History of Abuse - Travel History Recent Travel in the [place] Within the Last 8 Weeks: No Recent Travel Out of the Country Within the Last 8 Weeks: No - Immunization History Tetanus Immunization: Unable to Assess Hx Influenza Vaccine This Season: No Medications and Allergies Active Medications: Active Medications Al Hydroxide/Mg Hydroxide (Milk Of Robert Carrillo) 30 ml PO Q12H PRN PRN Reason: Mild Constipation Amlodipine Besylate (Norvasc) 10 mg PO DAILY [facility] Last Admin: 11/14/17 08:47 Dose: Not Given Aspirin (Aspirin Chew) 81 mg PO DAILY [facility] Last Admin: 11/14/17 08:47 Dose: Not Given Clonidine HCl (Catapres) 0.1 mg PO Q6H PRN PRN Reason: SYS BP GREATER THAN 160 [facility] Last Admin: 11/13/17 08:38 Dose: 0.1 mg Enalaprilat (Vasotec Inj) 1.25 mg IV.PUSH Q6H PRN PRN Reason: SBP>160, DBP>90 Last Admin: 11/14/17 08:38 Dose: 1.25 mg Heparin Sodium (Porcine) (Heparin Inj) 5,000 units SQ Q12H [facility] Last Admin: 11/14/17 15:59 Dose: 5,000 units Ceftriaxone Sodium 1,000 mg/ (Sodium Chloride) 100 mls @ 200 mls/hr IV.SIG Q24H [facility] Last Infusion: 11/14/17 13:07 Dose: Infused Potassium Chloride/Dextrose/Sod Cl (D5w/1/2ns + Kcl 20 Meq Inj) 1,000 mls @ 84 mls/hr IV.CONT .[id number] [facility] Last Admin: 11/14/17 13:10 Dose: 84 mls/hr Lactobacillus Acidophilus (Lactinex) 1 tab PO TID [facility] Last Admin: 11/14/17 13:10 Dose: Not Given Losartan Potassium (Cozaar) 100 mg PO DAILY [facility] Last Admin: 11/14/17 08:47 Dose: Not Given Ondansetron HCl (Zofran Inj) 4 mg IV.PUSH Q6H PRN PRN Reason: NAUSEA OR VOMITING Patch Removal (Remove Old Patch) 1 each T-DERMAL Q7D [facility] Potassium Chloride (K-Dur) 20 meq PO DAILY [facility] Last Admin: 11/14/17 08:47 Dose: Not Given Pravastatin Sodium (Pravachol) 80 mg PO DAILY [facility] Last Admin: 11/14/17 08:48 Dose: Not Given Sertraline HCl (Zoloft) 100 mg PO DAILY [facility] Last Admin: 11/14/17 08:48 Dose: Not Given Allergies Allergy/AdvReac Type Severity Reaction Status Date / Time acetaminophen Allergy Severe Rash Verified 11/01/17 08:46 ciprofloxacin Allergy Severe UNKNOWN Verified 11/01/17 08:46 codeine Allergy Severe Rash Verified 11/01/17 08:46 diclofenac Allergy Severe UNKNOWN Verified 11/01/17 08:46 dicyclomine Allergy Severe UNKNOWN Verified 11/01/17 08:46 doxycycline Allergy Severe UNKNOWN Verified 11/01/17 08:46 duloxetine Allergy Severe UNKNOWN Verified 11/01/17 08:46 etodolac Allergy Severe Rash Verified 11/01/17 08:46 fexofenadine Allergy Severe UNKNOWN Verified 11/01/17 08:46 flurbiprofen Allergy Severe Rash Verified 11/01/17 08:46 gabapentin Allergy Severe UNKNOWN Verified 11/01/17 08:46 ibuprofen Allergy Severe Rash Verified 11/01/17 08:46 indomethacin Allergy Severe Rash Verified 11/01/17 08:46 ketoprofen Allergy Severe Rash Verified 11/01/17 08:46 ketorolac Allergy Severe Rash Verified 11/01/17 08:46 levofloxacin Allergy Severe UNKNOWN Verified 11/01/17 08:46 meloxicam Allergy Severe UNKNOWN Verified 11/01/17 08:46 morphine Allergy Severe Rash Verified 11/01/17 08:46 naproxen Allergy Severe Rash Verified 11/01/17 08:46 oxaprozin Allergy Severe Rash Verified 11/01/17 08:46 penicillin G Allergy Severe Rash Verified 11/01/17 08:46 pentazocine Allergy Severe UNKNOWN Verified 11/01/17 08:46 pregabalin Allergy Severe INCREASE Verified 11/01/17 08:46 BLOOD PRESSURE rabeprazole Allergy Severe UNKNOWN Verified 11/01/17 08:46 risedronate sodium Allergy Severe UNKNOWN Verified 11/01/17 08:46 Sulfa (Sulfonamide Allergy Severe Rash Verified 11/01/17 08:46 Antibiotics) zolpidem Allergy Severe UNKNOWN Verified 11/01/17 08:46 Home Medications Medication Instructions Recorded Confirmed Type hydrocodone-ibuprofen 1 tab PO TID 08/28/17 11/01/17 History losartan 100 mg PO DAILY 08/28/17 11/01/17 History sertraline 100 mg PO DAILY 08/28/17 11/01/17 History aspirin 81 mg PO DAILY 11/01/17 11/01/17 History simvastatin 40 mg PO DAILY 11/01/17 11/01/17 History Exam Vital signs: Vital Signs 11/13/17 20:00 11/14/17 00:00 11/14/17 04:00 Temperature 97.5 F L 97.5 F L 97.6 F Pulse Rate 66 69 67 Respiratory Rate 18 Blood Pressure 175/77 H 141/63 H 166/89 H Pulse Oximetry 99 95 94 L 11/14/17 08:00 11/14/17 12:00 Temperature 97.0 F L 98.2 F Pulse Rate 81 100 H Respiratory Rate 18 Blood Pressure 178/77 H 116/55 L Pulse Oximetry 98 98 Intake & Output 11/13/17 11/14/17 11/14/17 18:59 06:59 18:59 Intake Total 600 / 600 100 / 100 Balance 600 / 600 100 / 100 Intake: IV 100 / 100 Rocephin Inj 1,000 MG In NS Inj 100 / 100 100 ML @ 200 mls/hr IV.SIG Q24H KI Rx#:[id number] Oral 600 / 600 Other: # Voids 2 Date of Last Bowel Movement 11/12/17 11/12/17 11/12/17 Narrative: GENERAL: in NAD, sitting in a recliner mild restraints curled to the right side not cooperative SKIN: Warm and dry. HEAD: Atraumatic. Normocephalic. EYES: Pupils equal and round. No scleral icterus. ENT: No nasal bleeding or discharge. Mucous membranes pink and moist. NECK: Trachea midline. No JVD. CARDIOVASCULAR: Regular rate and rhythm. RESPIRATORY: No accessory muscle use. Clear to auscultation. GASTROINTESTINAL: Abdomen soft, non-tender, nondistended. MUSCULOSKELETAL: Extremities without clubbing, cyanosis, or edema. No obvious deformities. NEUROLOGICAL: Sitting on a recliner in mild restraints not cooperative states go to "leave me alone" not following resist pupillary exam in general covers her eyes with her hands withdraws to tactile all 4 extremities neck appears to be supple PSYCHIATRIC: Not cooperative - Constitutional no acute distress - Routine HEENT Exam Head: Present: normocephalic Results - Labs CBC & Chem 7: 11/13/17 08:44 11/14/17 06:39 Labs: Laboratory Results - last 24 hr 11/14/17 11/14/17 06:39 13:30 Sodium 136 Potassium 3.2 L Chloride 98 Carbon Dioxide 26.2 Anion Gap 12 BUN 14 Creatinine 0.75 Estimated GFR 74 L Random Glucose 120 H Calcium 8.9 Vitamin B12 399 TSH 1.580 Review/Management - Diagnosis (1) Cognitive and behavioral changes Code(s): R41.89 - Other symptoms and signs involving cognitive functions and awareness; R46.89 - Other symptoms and signs involving appearance and behavior Status: Acute Current Visit: Yes (2) Urinary tract infection Code(s): N39.0 - Urinary tract infection, site not specified Status: Acute Current Visit: Yes (3) Hypertensive urgency Code(s): I16.0 - Hypertensive urgency Status: Resolved Current Visit: Yes (4) Metabolic encephalopathy Code(s): G93.41 - Metabolic encephalopathy Status: Acute Current Visit: Yes - Review/Management Plan: etiology; emerging dementia worsened by uti/htn. r/o infarct, although lesser likely recs eeg mri brain f/u labs bp control
--- NOTE | 2017-11-14 16:57 | P.CONPAL ---
Consult Service: Palliative Care Requesting Physician: Indira Pillai Reason for Consult: a. To assist with evaluation and management of symptoms including: Confusion, weakness b. To assist medical decision maker(s) with: better understanding of current medical conditions; weighing benefits/burdens of medical treatment options; making medical treatment decisions. Primary Care Provider: UNKNOWN History of Present Illness History of Present Illness: This is an 82-year-old female brought to the hospital for altered mental status. This is her fifth admission to the emergency room since August 28, 2017 for recurrent falls, head injuries, altered mental status and UTIs. Her past medical history is significant for hypertension, osteoarthritis, irritable bowel syndrome, Mon's esophagus and recurrent UTIs. Clinical data on admission: * Vital signs: Blood pressure 204/83, pulse 64, respiratory rate 16, temp 98.1, pulse ox 98% on room air * WBC 5.8, hemoglobin 14.3, hematocrit 40.5, platelets 230, sodium 132, potassium 3.4, BUN 10, creatinine 0.76, normal transaminases, UA shows hazy yellow specimen with a pH of 6.0, specific gravity 1.008, positive nitrate, large leukocyte esterase. * CT of the head shows no acute intracranial injury. On presentation she was A&O 1 but able to complain of weakness and feeling as though she could not walk. Rocephin was initiated probiotics and urine culture sent. Hypertensive urgency was managed losartan, clonidine patch. She became progressively more confused required restraints, however her confusion waxed and waned sometimes oriented 2, sometimes oriented 0. /16, she was considered for discharge and converted to Keflex 500 mg twice daily for home discharge, however on the next assessment she was extremely confused, rambling incoherently and yelling when touched. At my evaluation today, she is alert, confused, reciting the alphabet, not answering questions. Her primary verbalization is a high keening sound, worsening with speech or touch. She is in a position, hiding under the sheet. She has been moved to the nurses station for monitoring and fall prevention. . Function/Cognitive Trajectory: Since her early this year she has continued to steadily decline. Her son, Jay, with whom she lives, describes multiple falls daily, several of which have resulted in head trauma. CT done on each admission does not indicate any bleeding. Her son states that she has had progressive memory loss and increasingly frequent admissions to the hospital. She was evaluated by physical therapy today and became aggressive with bilateral lower extremity passive range of motion. She then converted to being conversant and participated with ambulation in the hallway using a rolling walker with minimum assistance 2. She continued to demonstrate some intermittent aggressiveness alternating with cooperation during the physical therapy evaluation. . Review of Systems Patient is nonverbal and unable to provide their own ROS. 10 part ROS taken as best as possible from medical record and available family. Constitutional: Reports weakness Musculoskeletal: Reports abnormal walking (Frequent falls) Neurologic: Reports behavioral changes, Reports confusion, Reports frequent falls Psychiatric: Reports anxiety, Reports confusion PMFSH - History History Provided By: Patient - Medical History Medical History: Medical History (Last Updated 11/14/17 @ 15:03 by JAIDEN Bryant) Irritable bowel syndrome (Acute) Osteoarthritis (Acute) Barretts esophagus (Acute) History of hypercholesterolemia (Acute) History of hypertension (Acute) H. pylori infection H/O: hysterectomy Normal colonoscopy - Surgical History Surgical History: Surgical History (Last Updated 11/14/17 @ 15:03 by JAIDEN Bryant) History of esophagogastroduodenoscopy (EGD) History of left knee surgery History of right knee surgery Status post surgical manipulation of ankle joint - Family History Family History: Family History (Last Reviewed 11/13/17 @ 08:22 by Sheyla Bundy) Other Osteoarthritis - Tobacco History Second Hand Smoke Exposure: No Smoking Status: Cognitive impairment Tobacco Type: Cigarettes - Alcohol History How Often Do You Have a Drink Containing Alcohol: Unable to Obtain - Substance Use History Substance History: No History of Abuse - Travel History Recent Travel in the [place] Within the Last 8 Weeks: No Recent Travel Out of the Country Within the Last 8 Weeks: No - Immunization History Tetanus Immunization: Unable to Assess Hx Influenza Vaccine This Season: No Medications and Allergies Active Medications: Active Medications Al Hydroxide/Mg Hydroxide (Milk Of Robert Liq) 30 ml PO Q12H PRN PRN Reason: Mild Constipation Amlodipine Besylate (Norvasc) 10 mg PO DAILY [facility] Last Admin: 11/14/17 08:47 Dose: Not Given Aspirin (Aspirin Chew) 81 mg PO DAILY [facility] Last Admin: 11/14/17 08:47 Dose: Not Given Clonidine HCl (Catapres) 0.1 mg PO Q6H PRN PRN Reason: SYS BP GREATER THAN 160 [facility] Last Admin: 11/13/17 08:38 Dose: 0.1 mg Enalaprilat (Vasotec Inj) 1.25 mg IV.PUSH Q6H PRN PRN Reason: SBP>160, DBP>90 Last Admin: 11/14/17 08:38 Dose: 1.25 mg Heparin Sodium (Porcine) (Heparin Inj) 5,000 units SQ Q12H [facility] Last Admin: 11/14/17 15:59 Dose: 5,000 units Ceftriaxone Sodium 1,000 mg/ (Sodium Chloride) 100 mls @ 200 mls/hr IV.SIG Q24H [facility] Last Infusion: 11/14/17 13:07 Dose: Infused Potassium Chloride/Dextrose/Sod Cl (D5w/1/2ns + Kcl 20 Meq Inj) 1,000 mls @ 84 mls/hr IV.CONT .[id number] [facility] Last Admin: 11/14/17 13:10 Dose: 84 mls/hr Lactobacillus Acidophilus (Lactinex) 1 tab PO TID [facility] Last Admin: 11/14/17 13:10 Dose: Not Given Losartan Potassium (Cozaar) 100 mg PO DAILY [facility] Last Admin: 11/14/17 08:47 Dose: Not Given Ondansetron HCl (Zofran Inj) 4 mg IV.PUSH Q6H PRN PRN Reason: NAUSEA OR VOMITING Patch Removal (Remove Old Patch) 1 each T-DERMAL Q7D [facility] Potassium Chloride (K-Dur) 20 meq PO DAILY [facility] Last Admin: 11/14/17 08:47 Dose: Not Given Pravastatin Sodium (Pravachol) 80 mg PO DAILY [facility] Last Admin: 11/14/17 08:48 Dose: Not Given Sertraline HCl (Zoloft) 100 mg PO DAILY [facility] Last Admin: 11/14/17 08:48 Dose: Not Given Allergies Allergy/AdvReac Type Severity Reaction Status Date / Time acetaminophen Allergy Severe Rash Verified 11/01/17 08:46 ciprofloxacin Allergy Severe UNKNOWN Verified 11/01/17 08:46 codeine Allergy Severe Rash Verified 11/01/17 08:46 diclofenac Allergy Severe UNKNOWN Verified 11/01/17 08:46 dicyclomine Allergy Severe UNKNOWN Verified 11/01/17 08:46 doxycycline Allergy Severe UNKNOWN Verified 11/01/17 08:46 duloxetine Allergy Severe UNKNOWN Verified 11/01/17 08:46 etodolac Allergy Severe Rash Verified 11/01/17 08:46 fexofenadine Allergy Severe UNKNOWN Verified 11/01/17 08:46 flurbiprofen Allergy Severe Rash Verified 11/01/17 08:46 gabapentin Allergy Severe UNKNOWN Verified 11/01/17 08:46 ibuprofen Allergy Severe Rash Verified 11/01/17 08:46 indomethacin Allergy Severe Rash Verified 11/01/17 08:46 ketoprofen Allergy Severe Rash Verified 11/01/17 08:46 ketorolac Allergy Severe Rash Verified 11/01/17 08:46 levofloxacin Allergy Severe UNKNOWN Verified 11/01/17 08:46 meloxicam Allergy Severe UNKNOWN Verified 11/01/17 08:46 morphine Allergy Severe Rash Verified 11/01/17 08:46 naproxen Allergy Severe Rash Verified 11/01/17 08:46 oxaprozin Allergy Severe Rash Verified 11/01/17 08:46 penicillin G Allergy Severe Rash Verified 11/01/17 08:46 pentazocine Allergy Severe UNKNOWN Verified 11/01/17 08:46 pregabalin Allergy Severe INCREASE Verified 11/01/17 08:46 BLOOD PRESSURE rabeprazole Allergy Severe UNKNOWN Verified 11/01/17 08:46 risedronate sodium Allergy Severe UNKNOWN Verified 11/01/17 08:46 Sulfa (Sulfonamide Allergy Severe Rash Verified 11/01/17 08:46 Antibiotics) zolpidem Allergy Severe UNKNOWN Verified 11/01/17 08:46 Home Medications Medication Instructions Recorded Confirmed Type hydrocodone-ibuprofen 1 tab PO TID 08/28/17 11/01/17 History losartan 100 mg PO DAILY 08/28/17 11/01/17 History sertraline 100 mg PO DAILY 08/28/17 11/01/17 History aspirin 81 mg PO DAILY 11/01/17 11/01/17 History simvastatin 40 mg PO DAILY 11/01/17 11/01/17 History Advance Directives Power of Human Services Instructor: Yes (Reported by son as being p.o. a, pending receipt of paperwork.) Power of Human Services Instructor Name: Jay Park (cell), ( home) Physical Exam Vital Signs: Vital Signs - 24 hr 11/13/17 20:00 11/14/17 00:00 11/14/17 04:00 Temperature 97.5 F L 97.5 F L 97.6 F Pulse Rate 66 69 67 Respiratory Rate 19 18 18 Blood Pressure 175/77 H 141/63 H 166/89 H Pulse Oximetry 99 95 94 L 11/14/17 08:00 11/14/17 12:00 Temperature 97.0 F L 98.2 F Pulse Rate 81 100 H Respiratory Rate 19 18 Blood Pressure 178/77 H 116/55 L Pulse Oximetry 98 98 I&O: Intake & Output 11/12/17 11/13/17 11/14/17 11/15/17 06:59 06:59 06:59 06:59 Intake Total 1820 / 1820 2099 / 2100 600 / 600 100 / 100 Balance 1820 / 1820 2099 / 2100 600 / 600 100 / 100 Physical Exam: CONSTITUTIONAL/GENERAL: This is a thin, elderly female curled up in position in mild distress. TUBES/LINES/DRAINS: Left forearm PIV SKIN: No jaundice, rashes, or lesions. Ecchymoses on upper extremities. Bruises on lower extremities. No wounds seen anteriorly. Skin temperature appropriate. Not diaphoretic. HEAD: Atraumatic. Normocephalic. EYES: Pupils equal and round and reactive. Extraocular motions intact. No scleral icterus. No injection or drainage. Fundi not examined. ENT: Hearing grossly normal. Nose without bleeding or purulent drainage. Throat without visible erythema, exudates, masses, or lesions. NECK: Trachea midline. Supple. No palpable thyroid enlargement or nodularity. CARDIOVASCULAR: Regular rate and rhythm without murmurs, gallops, or rubs. No JVD. Peripheral pulses symmetric. RESPIRATORY/CHEST: Symmetric, unlabored respirations. Clear to auscultation. Breath sounds equal bilaterally. No wheezes, rales, or rhonchi. GASTROINTESTINAL: Abdomen soft, nondistended. No hepato-splenomegaly, or palpable masses. No guarding. Bowel sounds present. GENITOURINARY: Without palpable bladder distension. Incontinent. MUSCULOSKELETAL: Extremities without clubbing, cyanosis, or edema. No joint tenderness or effusion noted. No mottling or clubbing. LYMPHATICS: No palpable cervical or supraclavicular adenopathy. NEUROLOGICAL: Arousable, not oriented, not responding to commands, moves spontaneously. PSYCHIATRIC: Agitated, confused, anxious. . Diagnostic Tests Laboratory: Laboratory Results - last 72 hr 11/13/17 11/13/17 11/14/17 08:44 08:44 06:39 WBC 5.9 RBC 4.28 Hgb 14.3 Hct 40.9 MCV 95.7 MCH 33.5 MCHC 35.0 RDW 12.6 Plt Count 233 MPV 7.5 Sodium 134 L 136 Potassium 3.3 L 3.2 L Chloride 96 L 98 Carbon Dioxide 28.6 26.2 Anion Gap 9 12 BUN 8 14 Creatinine 0.53 0.75 Estimated GFR Greater than 89 74 L Random Glucose 115 H 120 H Calcium 8.7 8.9 Magnesium 2.1 Total Bilirubin 0.4 AST 15 ALT 16 Alkaline Phosphatase 73 Total Protein 6.6 D Albumin 3.1 L Vitamin B12 TSH 11/14/17 13:30 WBC RBC Hgb Hct MCV MCH MCHC RDW Plt Count MPV Sodium Potassium Chloride Carbon Dioxide Anion Gap BUN Creatinine Estimated GFR Random Glucose Calcium Magnesium Total Bilirubin AST ALT Alkaline Phosphatase Total Protein Albumin Vitamin B12 399 TSH 1.580 Result Diagrams: 11/13/17 08:44 11/14/17 06:39 Microbiology: Microbiology 11/09/17 10:00 Urine Culture - Final Clean Catch Urine Enterobacter cloacae Imaging: Head CT 11/09/17 10:13 CONCLUSION: No acute intracranial injury . Patient/Family Conference Present at Family Conference: Spoke with patient's son, Jay, at length and reviewed patient's clinical findings, lab, radiology, test results, Assessment findings, past medical, social, psychosocial, surgical history as well as recent health status. Reviewed palliative care purpose and focus as well as the below listed items. Jay voiced suspicion of the entire hospital system as his father's identity had been stolen after being admitted to the hospital and hospice. At this time he will not designate a DO NOT RESUSCITATE status, although he feels that it is in his mother's best interest, due to this suspicion. He wishes to speak with his sister and meet [id number] before making that determination. Plan to call patient tomorrow morning follow-up and update and to hopefully arrange family meeting. . Family Conference Location: Telephone Issues Discussed: * Palliative care role, purpose, approach * Additional medical, psychosocial, and spiritual history * Patients general health, functional status, and cognitive changes in the months leading up to the current hospitalization * Patient/family understanding of the current medical problems * Patient/family understanding of prognosis * Patients goals of care as best understood from advance directives and/or conversations and/or values * Current medical treatment options and benefits/burdens of those options * Likely scenarios comparing ongoing aggressive care with a transition to comfort measures only * Questions answered to the best of my ability * Palliative care contact information provided Assessment and Plan Pertinent Non-Medical Issues: Psychosocial: She was born in [place] and 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 She was and had 4 children with her , moving to [place] in 1985. Her earlier this year and 1 of her daughters was killed previously. She has 1 daughter who lives locally, lives with her son Jay and has 1 son, Ed, last known to be in [facility], estranged from the family. Spiritual: She is of the Yazidism erendira. Legal: Pending receipt of POA. Ethical issues impacting care: None noted. . Important Contacts: Son: Jay (cell), (home) Daughter Phyllis Posada Son: Ed whereabouts unknown, last known [place], [place]. No contact number available. . Prognosis: Her prognosis is guarded. She is having frequent falls, recurrent UTIs and is steadily declining. She does have some underlying but undiagnosed dementia as her primary care provider retired and she does not have a physician at this time. She is of advanced age and worsening mental status. She is at elevated risk for continued complications spittle readmissions and decline. . Code Status: Full Code (Pending discussion with siblings.) Plan: PLAN: Legal decision maker: At this time the patient is not capacitated for decision-making and it is uncertain whether she will ever regain capacity calls have been placed to her son and daughter. Her son Jay states that he is the POA and that he can supply the paperwork on his next visit. Pending callback from the daughter Phyllis. Unable to locate the third sibling, Ed. Goals: Aggressive at this time. CODE STATUS: FULL CODE (family leaning toward DNR, but wished to discuss with siblings and meet in person first) SYMPTOMS: * Confusion: She is completely disoriented, developed dementia versus delirium versus combination. At my evaluation she was unable to state her name. This may be multifactorial to include multiple recent head traumas from falls, urinary tract infection, and abrupt cessation of Valium 5 mg 3 times daily and hydrocodone/ibuprofen 3.75/200 mg 3 times daily 2 weeks ago. Her primary care provider retired, she has not found a new provider and she ran out of her chronically prescribed medicine. She has previously been taking Valium and hydrocodone for over 15 years. Son states last dose was approximately 2 weeks ago, but it is uncertain if this would still be a factor. Could consider trying a small dose of Ativan to determine the effect on her confusion and agitation. * Weakness: Her son describes progressive weakness with more and more frequent falls. Physical therapy was able to ambulate her with a rolling walker, however her therapy was complicated by confusion and agitation. If her mentation can be stabilized, she may benefit from short-term rehab versus comfort care and long-term senior living placement. SUMMARY This is an 82-year-old female with rest of confusion and weakness admitted fifth time since August 2017 with recurrent confusion, UTI and frequent falls. Son describes a progressive dementia, memory loss, aggressive behavior at home, not recognizing family members and increased incontinence. She has been under treatment with an appropriate antibiotic for 5 days with no discernible improvement in her mental status. Her son is concerned that she may have some level of benzodiazepine withdrawal as she has been on Valium 5 mg 3 times daily for the last 15 years which was abruptly stopped 2 weeks ago due to no medical provider. He feels at this time her mentation started to progressively decline and he is unable to provide 24-hour care for her so is considering senior living placement. She may be hospice appropriate if goals are consistent. Palliative care will continue to follow the patient during hospital course as condition evolves, to assist patient/decision-maker with understanding of their medical conditions, weighing benefits/burdens of treatment options, for clarification of goals of treatment. Additionally will assist with any symptoms of palliative concern. . Appreciation Thank you for the opportunity to participate in the care of Karine Park. Attestation Attestation: To help prompt me to consider important information that might be impacting today's encounter and assessment, information from prior notes written by myself or my colleagues may have been "brought forward" into today's note. My signature on this note, however, is an attestation that I personally performed the exam, history, and/or decision-making noted today, and, unless otherwise indicated, the interactions with patient, family, and staff as well as the review of records all occurred today. I also attest that the listed assessment and stated plan reflect my best clinical judgment today based on the combination of historical information, prior notes, and today's exam/ interactions. When time spent is documented, it refers only to time spent today by the signer, or if indicated, combined time spent today by collaborating physician/nurse practitioner. .
[2017-11-15] MEDS: KCL 20 mEq/D5W/NaCl 0.45% Inj 1,000 ML IV.CONT SCH ×2 (00:30→13:30)
[2017-11-15] MEDS: Heparin - SQ 10,000 UNITS/ML Vial SQ SCH ×2 (03:38→14:05)
--- NOTE | 2017-11-15 08:17 | P.PNNEU ---
Subjective Subjective Comments: no cp/dyspnea/ambriz/focal weakness Active Medications: Active Medications Al Hydroxide/Mg Hydroxide (Milk Of Robert Carrillo) 30 ml PO Q12H PRN PRN Reason: Mild Constipation Amlodipine Besylate (Norvasc) 10 mg PO DAILY [facility] Last Admin: 11/14/17 08:47 Dose: Not Given Aspirin (Aspirin Chew) 81 mg PO DAILY [facility] Last Admin: 11/14/17 08:47 Dose: Not Given Clonidine HCl (Catapres) 0.1 mg PO Q6H PRN PRN Reason: SYS BP GREATER THAN 160 [facility] Last Admin: 11/13/17 08:38 Dose: 0.1 mg Enalaprilat (Vasotec Inj) 1.25 mg IV.PUSH Q6H PRN PRN Reason: SBP>160, DBP>90 Last Admin: 11/14/17 08:38 Dose: 1.25 mg Heparin Sodium (Porcine) (Heparin Inj) 5,000 units SQ Q12H [facility] Last Admin: 11/15/17 03:38 Dose: 5,000 units Ceftriaxone Sodium 1,000 mg/ (Sodium Chloride) 100 mls @ 200 mls/hr IV.SIG Q24H [facility] Last Infusion: 11/14/17 13:07 Dose: Infused Potassium Chloride/Dextrose/Sod Cl (D5w/1/2ns + Kcl 20 Meq Inj) 1,000 mls @ 84 mls/hr IV.CONT .[id number] [facility] Last Admin: 11/15/17 00:30 Dose: 84 mls/hr Lactobacillus Acidophilus (Lactinex) 1 tab PO TID [facility] Last Admin: 11/14/17 17:52 Dose: Not Given Losartan Potassium (Cozaar) 100 mg PO DAILY [facility] Last Admin: 11/14/17 08:47 Dose: Not Given Ondansetron HCl (Zofran Inj) 4 mg IV.PUSH Q6H PRN PRN Reason: NAUSEA OR VOMITING Patch Removal (Remove Old Patch) 1 each T-DERMAL Q7D [facility] Potassium Chloride (K-Dur) 20 meq PO DAILY [facility] Last Admin: 11/14/17 08:47 Dose: Not Given Pravastatin Sodium (Pravachol) 80 mg PO DAILY [facility] Last Admin: 11/14/17 08:48 Dose: Not Given Sertraline HCl (Zoloft) 100 mg PO DAILY [facility] Last Admin: 11/14/17 08:48 Dose: Not Given Allergies/Adverse Reactions: Allergies Allergy/AdvReac Type Severity Reaction Status Date / Time acetaminophen Allergy Severe Rash Verified 11/01/17 08:46 ciprofloxacin Allergy Severe UNKNOWN Verified 11/01/17 08:46 codeine Allergy Severe Rash Verified 11/01/17 08:46 diclofenac Allergy Severe UNKNOWN Verified 11/01/17 08:46 dicyclomine Allergy Severe UNKNOWN Verified 11/01/17 08:46 doxycycline Allergy Severe UNKNOWN Verified 11/01/17 08:46 duloxetine Allergy Severe UNKNOWN Verified 11/01/17 08:46 etodolac Allergy Severe Rash Verified 11/01/17 08:46 fexofenadine Allergy Severe UNKNOWN Verified 11/01/17 08:46 flurbiprofen Allergy Severe Rash Verified 11/01/17 08:46 gabapentin Allergy Severe UNKNOWN Verified 11/01/17 08:46 ibuprofen Allergy Severe Rash Verified 11/01/17 08:46 indomethacin Allergy Severe Rash Verified 11/01/17 08:46 ketoprofen Allergy Severe Rash Verified 11/01/17 08:46 ketorolac Allergy Severe Rash Verified 11/01/17 08:46 levofloxacin Allergy Severe UNKNOWN Verified 11/01/17 08:46 meloxicam Allergy Severe UNKNOWN Verified 11/01/17 08:46 morphine Allergy Severe Rash Verified 11/01/17 08:46 naproxen Allergy Severe Rash Verified 11/01/17 08:46 oxaprozin Allergy Severe Rash Verified 11/01/17 08:46 penicillin G Allergy Severe Rash Verified 11/01/17 08:46 pentazocine Allergy Severe UNKNOWN Verified 11/01/17 08:46 pregabalin Allergy Severe INCREASE Verified 11/01/17 08:46 BLOOD PRESSURE rabeprazole Allergy Severe UNKNOWN Verified 11/01/17 08:46 risedronate sodium Allergy Severe UNKNOWN Verified 11/01/17 08:46 Sulfa (Sulfonamide Allergy Severe Rash Verified 11/01/17 08:46 Antibiotics) zolpidem Allergy Severe UNKNOWN Verified 11/01/17 08:46 Review of Systems All other systems reviewed negative except as stated in HPI Physical Exam Vital signs: Vital Signs 11/14/17 12:00 11/14/17 20:17 11/14/17 20:22 Temperature 98.2 F 97.8 F 97.8 F Pulse Rate 100 H 87 87 Respiratory Rate 18 23 21 Blood Pressure 116/55 L 175/79 H 175/79 H Pulse Oximetry 98 98 11/15/17 00:00 Temperature 97.6 F Pulse Rate 88 Respiratory Rate 19 Blood Pressure 148/76 H Pulse Oximetry 98 Intake & Output 11/14/17 11/15/17 11/15/17 18:59 06:59 18:59 Intake Total 100 / 100 1000 / 1000 Balance 100 / 100 1000 / 1000 Intake: IV 100 / 100 1000 / 1000 D5W/1/2NS + KCL 20 mEq Inj 1, 1000 / 1000 000 ML @ 84 mls/hr IV.CONT . [id number] KI Rx#:[id number] Rocephin Inj 1,000 MG In NS Inj 100 / 100 100 ML @ 200 mls/hr IV.SIG Q24H KI Rx#:[id number] Other: # Voids 1 1 Date of Last Bowel Movement 11/12/17 11/12/17 Narrative: GENERAL: in NAD, SKIN: Warm and dry. HEAD: Atraumatic. Normocephalic. EYES: Pupils equal and round. No scleral icterus. ENT: No nasal bleeding or discharge. Mucous membranes pink and moist. NECK: Trachea midline. No JVD. CARDIOVASCULAR: Regular rate and rhythm. RESPIRATORY: No accessory muscle use. Clear to auscultation. GASTROINTESTINAL: Abdomen soft, non-tender, nondistended. MUSCULOSKELETAL: Extremities without clubbing, cyanosis, or edema. NEUROLOGICAL: sitting up in bed. ox 1-2. distractable, follows some simple requests and names objects but needs a lot of redirection, some non-sensical speech, eomi, face sym, goff to gravity, no involuntary movements PSYCHIATRIC: more co-operative - Constitutional no acute distress - Routine HEENT Exam Head: Present: normocephalic Objective Laboratory Results - last 24 hr 11/14/17 11/14/17 11/14/17 13:30 18:00 18:00 ESR 26 Ammonia Less than 10 L C-Reactive Protein Vitamin B12 399 TSH 1.580 11/14/17 18:00 ESR Ammonia C-Reactive Protein 2.70 H Vitamin B12 TSH Review/Management - Diagnosis (1) Cognitive and behavioral changes Code(s): R41.89 - Other symptoms and signs involving cognitive functions and awareness; R46.89 - Other symptoms and signs involving appearance and behavior Status: Acute Current Visit: Yes (2) Urinary tract infection Code(s): N39.0 - Urinary tract infection, site not specified Status: Acute Current Visit: Yes (3) Hypertensive urgency Code(s): I16.0 - Hypertensive urgency Status: Resolved Current Visit: Yes (4) Metabolic encephalopathy Code(s): G93.41 - Metabolic encephalopathy Status: Acute Current Visit: Yes - Review/Management Plan: etiology; emerging dementia worsened by uti/htn. r/o infarct, although lesser likely. withdrawal? recs eeg=pending mri brain-pending f/u labs. nh3, b12, tsh, esr nml. replace K bp control being evaluated by palliative care
[2017-11-15] MEDS: Lactobacillus Acidophilus/L. Spores Tablet PO SCH ×3 (09:07→18:03)
[2017-11-15] MEDS: Sertraline 100 MG Tablet PO SCH (09:07)
[2017-11-15] MEDS: amLODIPine 10 MG Tablet PO SCH (09:07)
--- NOTE | 2017-11-15 10:46 | P.PNPAL ---
Reason for Visit Reason for visit: a. To assist with evaluation and management of symptoms including: Confusion, agitation b. To assist medical decision maker(s) with: better understanding of current medical conditions; weighing benefits/burdens of medical treatment options; making medical treatment decisions. Subjective Subjective/Interval History: Patient seen today to follow-up on symptom management of confusion and agitation and assist with goals of medical treatment. She is sitting up in a chair today after having eaten all her breakfast. She is much more alert today and is verbalizing clearly. She ambulated with physical therapy she remains confused, does not remember family visiting, does not know her daughter's name. She is not oriented to place, situation or time, but today appears oriented to self. When asked a question her answer does not match the question asked. She is wearing an eye mask since she finished her breakfast. She shakes her head "no" when asked if she has a headache or if her eyes hurt. Her RPR is nonreactive. 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 She is being evaluated by neurology who has requested an EEG and an MRI, which are both pending. This may prove difficult due to her level of agitation. She is refusing all p.o. meds and pulls away when touched. She becomes agitated and tries to slap/push away caregivers hands. She does not follow directions and continues to try to get up, requiring Rosette chair next to the nurses station for safety. Her agitation is improving and is now mild to moderate, worsened with interaction, improves when left alone. . Family/Friend Interactions: Spoke with patient's son and daughter today regarding CODE STATUS and discharge plans. After discussion, the son Jay and the daughter Phyllis, agreed to make her a DO NOT RESUSCITATE status. Phyllis stated she would be in this evening to sign some other papers and would sign the [facility] DNR at that time. Also discussed discharge plans with family and it was their determination that a short course of rehabilitation while finishing her course of antibiotics would allow time for the confusion from the infection to clear and better assess her baseline mentation to see if bringing her home was feasible or if she would need long-term custodial placement. We also discussed hospice support for both patient and family and both have agreed with evaluating hospice support, once she completes her course of rehabilitation, whether she comes home or stays in the residential facility. Consult hospice placed for information only. . Objective Vital Signs: Vital Signs 11/14/17 12:00 11/14/17 20:17 11/14/17 20:22 Temperature 98.2 F 97.8 F 97.8 F Pulse Rate 100 H 87 87 Respiratory Rate 18 23 21 Blood Pressure 116/55 L 175/79 H 175/79 H Pulse Oximetry 98 98 11/15/17 00:00 11/15/17 09:22 Temperature 97.6 F Pulse Rate 88 Respiratory Rate 19 Blood Pressure 148/76 H 192/101 H Pulse Oximetry 98 Intake & Output 11/14/17 11/15/17 11/15/17 18:59 06:59 18:59 Intake Total 100 / 100 1000 / 1000 Balance 100 / 100 1000 / 1000 Intake: IV 100 / 100 1000 / 1000 D5W/1/2NS + KCL 20 mEq Inj 1, 1000 / 1000 000 ML @ 84 mls/hr IV.CONT . [id number] KI Rx#:[id number] Rocephin Inj 1,000 MG In NS Inj 100 / 100 100 ML @ 200 mls/hr IV.SIG Q24H [facility]I Rx#:[id number] Other: # Voids 1 1 Date of Last Bowel Movement 11/12/17 11/12/17 Physical Exam: CONSTITUTIONAL/GENERAL: This is a thin, elderly female sitting up in a Rosette chair in no acute distress. TUBES/LINES/DRAINS: Left forearm PIV SKIN: No jaundice, rashes, or lesions. Ecchymoses on upper extremities. Bruises on lower extremities. No wounds seen anteriorly. Skin temperature appropriate. Not diaphoretic. CARDIOVASCULAR: Regular rate and rhythm without murmurs, gallops, or rubs. No JVD. Peripheral pulses symmetric. RESPIRATORY/CHEST: Symmetric, unlabored respirations. Clear to auscultation. Breath sounds equal bilaterally. No wheezes, rales, or rhonchi. GASTROINTESTINAL: Abdomen soft, nondistended. Bowel sounds present. MUSCULOSKELETAL: Extremities without clubbing, cyanosis, or edema. No joint tenderness or effusion noted. No mottling or clubbing. NEUROLOGICAL: Arousable, not oriented, not responding to commands, moves spontaneously. PSYCHIATRIC: Agitated, confused, anxious. . Diagnostic Tests Laboratory: Laboratory Results - last 72 hr 11/13/17 11/13/17 11/14/17 08:44 08:44 06:39 WBC 5.9 RBC 4.28 Hgb 14.3 Hct 40.9 MCV 95.7 MCH 33.5 MCHC 35.0 RDW 12.6 Plt Count 233 MPV 7.5 ESR Sodium 134 L 136 Potassium 3.3 L 3.2 L Chloride 96 L 98 Carbon Dioxide 28.6 26.2 Anion Gap 9 12 BUN 8 14 Creatinine 0.53 0.75 Estimated GFR Greater than 89 74 L Random Glucose 115 H 120 H Calcium 8.7 8.9 Magnesium 2.1 Total Bilirubin 0.4 AST 15 ALT 16 Alkaline Phosphatase 73 Ammonia C-Reactive Protein Total Protein 6.6 D Albumin 3.1 L Vitamin B12 TSH RPR 11/14/17 11/14/17 11/14/17 13:30 13:30 18:00 WBC RBC Hgb Hct MCV MCH MCHC RDW Plt Count MPV ESR 26 Sodium Potassium Chloride Carbon Dioxide Anion Gap BUN Creatinine Estimated GFR Random Glucose Calcium Magnesium Total Bilirubin AST ALT Alkaline Phosphatase Ammonia C-Reactive Protein Total Protein Albumin Vitamin B12 399 TSH 1.580 RPR Nonreactive 11/14/17 11/14/17 18:00 18:00 WBC RBC Hgb Hct MCV MCH MCHC RDW Plt Count MPV ESR Sodium Potassium Chloride Carbon Dioxide Anion Gap BUN Creatinine Estimated GFR Random Glucose Calcium Magnesium Total Bilirubin AST ALT Alkaline Phosphatase Ammonia Less than 10 L C-Reactive Protein 2.70 H Total Protein Albumin Vitamin B12 TSH RPR Result Diagrams: 11/13/17 08:44 11/15/17 09:38 Microbiology: Microbiology 11/09/17 10:00 Urine Culture - Final Clean Catch Urine Enterobacter cloacae Imaging: Head CT 11/09/17 10:13 CONCLUSION: No acute intracranial injury . 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 She was and had 4 children with her , moving to [place] in 1985. Her earlier this year and 1 of her daughters was killed previously. She has 1 daughter who lives locally, lives with her son Jay and has 1 son, Ed, last known to be in [facility], estranged from the family. Spiritual: She is of the [employer] e[employer]. Legal: Pending receipt of POA. Ethical issues impacting care: None noted. . Important Contacts: Son: Jay (cell), (home) Daughter Phyllis Posada Son: Ed whereabouts unknown, last known [place], [place]. No contact number available. . Prognosis: Her prognosis is guarded. She is having frequent falls, recurrent UTIs and is steadily declining. She does have some underlying but undiagnosed dementia as her primary care provider retired and she does not have a physician at this time. She is of advanced age and worsening mental status. She is at elevated risk for continued complications, readmissions and decline. . Code Status: No Code DNR Plan: PLAN: Legal decision maker: At this time the patient is not capacitated for decision-making and it is uncertain whether she will ever regain capacity calls have been placed to her son and daughter. Her son Jay states that he is the POA and that he can supply the paperwork on his next visit. Pending callback from the daughter Phyllis. Unable to locate the third sibling, Ed. Goals: Aggressive short of no code. CODE STATUS: DO NOT RESUSCITATE SYMPTOMS: * Confusion: She is improving today, now oriented to self. Today she was able to state her name as "Karine". This may be multifactorial to include multiple recent head traumas from falls, urinary tract infection, and abrupt cessation of Valium 5 mg 3 times daily and hydrocodone/ibuprofen 3.75/200 mg 3 times daily 2 weeks ago. Her primary care provider retired, she has not found a new provider and she ran out of her chronically prescribed medicine. She has previously been taking Valium and hydrocodone for over 15 years. Son states last dose was approximately 2 weeks ago, but it is uncertain if this would still be a factor. More likely to be related to UTI. * Agitation: She remains somewhat agitated today, refusing p.o. medications and slapping away the hands of all caregivers and examiners. This is compromising blood pressure control. She may benefit from a Catapres patch. Neuro workup in progress, pending MRI and EEG, which may prove challenging secondary to her agitation. Palliative care will continue to follow the patient during hospital course as condition evolves, to assist patient/decision-maker with understanding of their medical conditions, weighing benefits/burdens of treatment options, for clarification of goals of treatment. Additionally will assist with any symptoms of palliative concern. . Attestation Attestation: To help prompt me to consider important information that might be impacting today's encounter and assessment, information from prior notes written by myself or my colleagues may have been "brought forward" into today's note. My signature on this note, however, is an attestation that I personally performed the exam, history, and/or decision-making noted today, and, unless otherwise indicated, the interactions with patient, family, and staff as well as the review of records all occurred today. I also attest that the listed assessment and stated plan reflect my best clinical judgment today based on the combination of historical information, prior notes, and today's exam/ interactions. When time spent is documented, it refers only to time spent today by the signer, or if indicated, combined time spent today by collaborating physician/nurse practitioner. .
[2017-11-15 11:16] LABS: Carbon Dioxide 27.6 meq/L (21.0-32.0); Potassium 3.3 meq/L (3.5-5.1)
--- NOTE | 2017-11-15 11:22 | P.PNIM ---
Subjective Interval history: FU AMS. Patient sitting in chair by door with face mask on. Confused, does not know where she is. Denies any pain. Appears comfortable. Physical Exam Vital signs: Vital Signs 11/14/17 12:00 11/14/17 20:17 11/14/17 20:22 Temperature 98.2 F 97.8 F 97.8 F Pulse Rate 100 H 87 87 Respiratory Rate 18 23 21 Blood Pressure 116/55 L 175/79 H 175/79 H Pulse Oximetry 98 98 11/15/17 00:00 11/15/17 08:00 11/15/17 09:22 Temperature 97.6 F 97.5 F L Pulse Rate 88 90 Respiratory Rate 19 18 Blood Pressure 148/76 H 181/81 H 192/101 H Pulse Oximetry 98 100 Intake & Output 11/14/17 11/15/17 11/15/17 18:59 06:59 18:59 Intake Total 100 / 100 1000 / 1000 Balance 100 / 100 1000 / 1000 Intake: IV 100 / 100 1000 / 1000 D5W/1/2NS + KCL 20 mEq Inj 1, 1000 / 1000 000 ML @ 84 mls/hr IV.CONT . [id number] KI Rx#:[id number] Rocephin Inj 1,000 MG In NS Inj 100 / 100 100 ML @ 200 mls/hr IV.SIG Q24H KI Rx#:[id number] Other: # Voids 1 1 Date of Last Bowel Movement 11/12/17 11/12/17 11/12/17 Narrative: GENERAL: in NAD, SKIN: Warm and dry. HEAD: Atraumatic. Normocephalic. EYES: Pupils equal and round. No scleral icterus. ENT: No nasal bleeding or discharge. Mucous membranes pink and moist. NECK: Trachea midline. No JVD. CARDIOVASCULAR: Regular rate and rhythm. RESPIRATORY: No accessory muscle use. Clear to auscultation. GASTROINTESTINAL: Abdomen soft, non-tender, nondistended. MUSCULOSKELETAL: Extremities without clubbing, cyanosis, or edema. NEUROLOGICAL: sitting in Chair. Oriented to self. Moves all. Results - Labs CBC & Chem 7: 11/13/17 08:44 11/14/17 06:39 Laboratory Results - last 24 hr 11/14/17 11/14/17 11/14/17 13:30 13:30 18:00 ESR 26 Ammonia C-Reactive Protein Vitamin B12 399 TSH 1.580 RPR Nonreactive 11/14/17 11/14/17 18:00 18:00 ESR Ammonia Less than 10 L C-Reactive Protein 2.70 H Vitamin B12 TSH RPR Assessment and Plan - Assessment (1) Urinary tract infection Code(s): N39.0 - Urinary tract infection, site not specified Status: Acute (2) Hypertensive urgency Code(s): I16.0 - Hypertensive urgency Status: Resolved (3) Metabolic encephalopathy Code(s): G93.41 - Metabolic encephalopathy Status: Acute - Plan 82-year-old female with dementia, hypertension, and hyperlipidemia admitted secondary to urinary tract infection with encephalopathy and hypertensive urgency. UTI UA on admission notable for positive nitrates and leukocyte esterase Culture growing Enterobacter sensitive to cephalosporins Had been transitioned to PO Keflex but now refusing meds so will restart Rocephin Metabolic encephalopathy Patient remains significantly confused, per neighbors that visited yesterday this is new and has not responded to treatment of urinary infection CT head on admission negative Now refusing PO meds and not eating Palliative care consulted We will also consult neurology to evaluate for any other causes of acutely worsening dementia, EEG and MRI pending She lost her in the past year and depression could be presenting as pseudodementia but she is already being treated with Zoloft CPR elevated 2.7 likely due to UTI, thiamine pending, B12 normal, and TSH normal Hypertension BP still mildly elevated Continue losartan and Norvasc Continue monitor Refusing PO now. Will provide Vasotec IV PRN -Add clonidine patch, DC prn clonidine Hyperlipidemia -Continue statin Chronic hyponatremia Stable Likely secondary to SSRI Hypokalemia Replete with KCl in IV fluids Depression Continue home Zoloft Could be contributing to pseudodementia since patient worse than baseline Now refusing PO FEN: D5W-1/NS-KCl 20 at 84 ml/hr since not eating Discussed Condition With: Patient and RN
[2017-11-15] MEDS ORDERED: Labetalol HCl Inj 100 MG/20 ML Vial IV.PUSH ONE (17:18)
[2017-11-15] MEDS ORDERED: levETIRAcetam 1000mg/100mL Inj 100 ML IV.SIG ONE (17:18)
--- NOTE | 2017-11-15 21:26 | MR ---
EXAM DATE: 11/15/2017 9:21 PM EDT AGE/SEX: 82 years / Female INDICATIONS: CVA. CLINICAL DATA: This is the patient's subsequent encounter. Patient reports that signs and symptoms h ave been present for 4 - 6 days and indicates a pain score of 0/10. MEDICAL/SURGICAL HISTORY: Hypertension. Seizures. Hysterectomy. Bilat KNees, Elbow, Ankle COMPARISON: POI, MR BRAIN W AND W/O CONTRAST, 09/16/2014. . TECHNIQUE: Multiplanar, multisequence examination of the brain was performed without contrast. FINDINGS: Extensive motion artifact. Cerebrum: The ventricles are prominent consistent with atrophy. No evidence of midline shift, mass lesion, hemorrhage or acute infarction. No extraaxial fluid collections are seen. The pituitary gla nd and suprasellar cistern are normal in configuration. White Matter: No significant signal abnormalities are seen in the white matter. Posterior Fossa: The cerebellum and brainstem are intact. The 4th ventricle is midline. The cerebel lopontine angle is unremarkable. The cerebellar tonsils are normal in position. Diffusion Imaging: No focal areas of restricted diffusion are seen. No evidence of acute infarction . Extracranial: The visualized portions of the orbits and paranasal sinuses are unremarkable. CONCLUSION: 1. Cerebral atrophy. 2. Motion artifact without definite acute intracranial abnormality. Electronically signed by: Ministerio Hernández MD 11/15/2017 9:25 PM EDT
[2017-11-16] MEDS: KCL 20 mEq/D5W/NaCl 0.45% Inj 1,000 ML IV.CONT SCH ×2 (01:17→13:28)
[2017-11-16] MEDS: Heparin - SQ 10,000 UNITS/ML Vial SQ SCH ×2 (03:26→14:38)
[2017-11-16 05:09] LABS: Baso % (Auto) 0.3 % (0.0-2.0); Eos % (Auto) 0.2 % (0.0-4.0); Hematocrit 34.3 % (35.0-46.0); Lymph # (Auto) 1.1 th/mm3 (1.0-4.8); Lymph % (Auto) 11.5 % (9.0-44.0); Mean Corpuscular Hemoglobin 33.3 pg (27.0-34.0); Mean Corpuscular Volume 95.2 fL (80.0-100.0); Mono # (Auto) 0.6 th/mm3 (0.0-0.9); Mono % (Auto) 6.1 % (0.0-8.0); Neut # (Auto) 8.1 th/mm3 (1.8-7.7); Neut % (Auto) 81.9 % (16.0-70.0); Platelet Count 199 th/mm3 (150-450); Red Cell Distribution Width 12.4 % (11.6-17.2); White Blood Count 9.9 th/mm3 (4.0-11.0)
[2017-11-16 05:32] LABS: Alanine Aminotransferase 14 U/L (10-53); Albumin 2.8 g/dL (3.4-5.0); Anion Gap 10 meq/L (5-15); Aspartate Aminotransferase 17 U/L (15-37); Blood Urea Nitrogen 9 mg/dL (7-18); Calcium 8.3 mg/dL (8.5-10.1); Carbon Dioxide 25.7 meq/L (21.0-32.0); Chloride 100 meq/L (98-107); Glomerular Filtration Rate Greater Than 89 mL/min (>89); Glucose,Random 122 mg/dL (74-106); Magnesium 1.8 mg/dL (1.5-2.5); Potassium 3.2 meq/L (3.5-5.1); Sodium 136 meq/L (136-145)
[2017-11-16 05:35] LABS: Alkaline Phosphatase 58 U/L (45-117); Total Protein 5.9 g/dL (6.4-8.2)
[2017-11-16] MEDS: Sertraline 100 MG Tablet PO SCH (09:24)
[2017-11-16] MEDS: amLODIPine 10 MG Tablet PO SCH (09:24)
[2017-11-16] MEDS: Lactobacillus Acidophilus/L. Spores Tablet PO SCH ×3 (09:24→17:24)
[2017-11-16] MEDS: Potassium Chlor 10 mEq Premix 10 MEQ/100 ML PIGGYBACK IV.SIG SCH ×4 (09:43→13:29)
--- NOTE | 2017-11-16 11:40 | P.PNIM ---
Subjective Interval history: FU seizure, ams. Patient is more alert today, still confused from seizure yesterday. Able to follow commands but is not oriented. Denies any pain. Appears to be in no distress. Physical Exam Vital signs: Vital Signs 11/15/17 12:00 11/15/17 16:00 11/15/17 17:26 Temperature 97.6 F 98.2 F Pulse Rate 105 H 99 H Respiratory Rate 16 16 Blood Pressure 164/75 H 138/76 Pulse Oximetry 100 99 97 11/15/17 17:43 11/15/17 19:45 11/15/17 20:00 Temperature 99.3 F Pulse Rate 109 H Respiratory Rate 20 16 Blood Pressure 187/79 H Pulse Oximetry 97 97 11/16/17 00:00 11/16/17 01:15 11/16/17 04:00 Temperature 98.1 F 98.7 F Pulse Rate 106 H 78 Respiratory Rate 18 17 17 Blood Pressure 148/65 H 118/56 L Pulse Oximetry 94 L 96 11/16/17 07:08 11/16/17 08:00 Temperature 98.4 F Pulse Rate 89 Respiratory Rate 18 21 Blood Pressure 107/65 Pulse Oximetry 94 L Intake & Output 11/15/17 11/16/17 11/16/17 18:59 06:59 18:59 Intake Total 1962.7 / 1962.7 100 / 100 Balance 1963.7 / 1962.7 100 / 100 Intake: IV 1243.7 / 1243.7 100 / 100 D5W/1/2NS + KCL 20 mEq Inj 1, 1043.7 / 1043.7 000 ML @ 84 mls/hr IV.CONT . [id number] KI Rx#:[id number] KCl 10 mEq Premix Inj 10 meq In 100 / 100 100 ml @ 100 mls/hr IV.SIG Q1H KI Rx#:[id number] Rocephin Inj 1,000 MG In NS Inj 100 / 100 100 ML @ 200 mls/hr IV.SIG Q24H KI Rx#:[id number] Keppra 1000 mg/100 mL Premix 100 / 100 100 ML @ 400 mls/hr IV.SIG ONCE ONE Rx#:[id number] Oral 720 / 720 Other: # Incontinent Voids 3 Date of Last Bowel Movement 11/12/17 11/12/17 11/12/17 Narrative: GENERAL: in NAD, SKIN: Warm and dry. HEAD: Atraumatic. Normocephalic. EYES: Pupils equal and round. No scleral icterus. ENT: No nasal bleeding or discharge. Mucous membranes pink and moist. NECK: Trachea midline. No JVD. CARDIOVASCULAR: Regular rate and rhythm. RESPIRATORY: No accessory muscle use. Clear to auscultation. GASTROINTESTINAL: Abdomen soft, non-tender, nondistended. MUSCULOSKELETAL: Extremities without clubbing, cyanosis, or edema. NEUROLOGICAL: Laying in bed. Oriented to self. Moves all. Results - Labs CBC & Chem 7: 11/16/17 04:54 11/16/17 04:54 Laboratory Results - last 24 hr 11/15/17 11/16/17 11/16/17 17:01 04:54 04:54 WBC 9.9 RBC 3.60 L Hgb 12.0 Hct 34.3 L MCV 95.2 MCH 33.3 MCHC 35.0 RDW 12.4 Plt Count 199 MPV 7.0 Neut % (Auto) 81.9 H Lymph % (Auto) 11.5 Otero % (Auto) 6.1 Eos % (Auto) 0.2 Baso % (Auto) 0.3 Neut # (Auto) 8.1 H Lymph # (Auto) 1.1 Otero # (Auto) 0.6 Eos # (Auto) 0.0 Baso # (Auto) 0.0 WBC Differential . Differential Comment Auto diff final Sodium 136 Potassium 3.2 L Chloride 100 Carbon Dioxide 25.7 Anion Gap 10 BUN 9 Creatinine 0.59 Estimated GFR Greater than 89 POC Glucose 137 H Random Glucose 122 H Calcium 8.3 L Magnesium 1.8 Total Bilirubin 0.4 AST 17 ALT 14 Alkaline Phosphatase 58 Total Protein 5.9 L D Albumin 2.8 L - Imaging Impressions Head MRI 11/15/17 07:05 CONCLUSION: 1. Cerebral atrophy. 2. Motion artifact without definite acute intracranial abnormality. Assessment and Plan - Assessment (1) Urinary tract infection Code(s): N39.0 - Urinary tract infection, site not specified Status: Acute (2) Hypertensive urgency Code(s): I16.0 - Hypertensive urgency Status: Resolved (3) Metabolic encephalopathy Code(s): G93.41 - Metabolic encephalopathy Status: Acute - Plan 82-year-old female with dementia, hypertension, and hyperlipidemia admitted secondary to urinary tract infection with encephalopathy and hypertensive urgency. UTI UA on admission notable for positive nitrates and leukocyte esterase Culture growing Enterobacter sensitive to cephalosporins Had been transitioned to PO Keflex but now refusing meds so will restart Rocephin Metabolic encephalopathy Patient remains significantly confused, was improving prior to seizure CT head on admission negative eating slightly better Palliative care consulted We will also consult neurology to evaluate for any other causes of acutely worsening dementia, EEG pending She lost her in the past year and depression could be presenting as pseudodementia but she is already being treated with Zoloft CPR elevated 2.7 likely due to UTI, thiamine pending, B12 normal, and TSH normal Hypertension, improving BP still mildly elevated Continue losartan and Norvasc Continue monitor Refusing PO now. 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
[2017-11-16] MEDS: Sod Chloride 0.9% Inj 1,000 ML IV.CONT SCH (14:12)
--- NOTE | 2017-11-16 17:08 | P.PNPAL ---
Reason for Visit Reason for visit: a. To assist with evaluation and management of symptoms including: Confusion, agitation, seizures b. To assist medical decision maker(s) with: better understanding of current medical conditions; weighing benefits/burdens of medical treatment options; making medical treatment decisions. Subjective Subjective/Interval History: Patient seen today to follow-up on symptom management of confusion, seizures and agitation and assist with goals of medical treatment. Approximately 5:30 PM 11/15, patient was seen to be having seizures. Nurse states that she witnessed 3 tonic-clonic seizures in a row, notified medical and Ativan was given as well as Keppra. No seizures have been seen since that time. Neurology was notified and their assessment is pending. She has undergone MRI with no specific findings and is pending EEG. She remains very confused today, states she is the "Musa". When asked where she is, she looks around and does not answer. When asked her name, she says Karine. She only intermittently answers questions regarding pain, discomfort. She is unable to quantify or qualify any symptoms. She remains under seizure precautions and is resting in bed. Her agitation has improved since being administered Ativan and she did get some sleep overnight, per the nurse. She is fidgety with mild agitation at this evaluation, picking at blankets and bed clothes. . . Family/Friend Interactions: Spoke with her son, Jay, and advised him of the seizures. The nurse informs me that the patient's daughter, Phyllis, had visited at the hospital shortly after the episode of seizures and has been made aware of that. Plan to meet Jay at bedside tomorrow at 10:30 AM for family meeting. . Objective Vital Signs: Vital Signs 11/15/17 17:26 11/15/17 17:43 11/15/17 19:45 Temperature Pulse Rate Respiratory Rate 20 Blood Pressure Pulse Oximetry 97 97 11/15/17 20:00 11/16/17 00:00 11/16/17 01:15 Temperature 99.3 F 98.1 F Pulse Rate 109 H 106 H Respiratory Rate 16 18 17 Blood Pressure 187/79 H 148/65 H Pulse Oximetry 97 94 L 11/16/17 04:00 11/16/17 07:08 11/16/17 08:00 Temperature 98.7 F 98.4 F Pulse Rate 78 89 Respiratory Rate 17 18 21 Blood Pressure 118/56 L 107/65 Pulse Oximetry 96 94 L 11/16/17 12:00 11/16/17 15:52 Temperature 97.6 F 98.1 F Pulse Rate 81 82 Respiratory Rate 19 18 Blood Pressure 158/68 H 142/71 H Pulse Oximetry 97 98 Intake & Output 11/15/17 11/16/17 11/16/17 18:59 06:59 18:59 Intake Total 1962.7 / 1962.7 500 / 500 Balance 1962.7 / 1962.7 500 / 500 Intake: IV 1243.7 / 1243.7 500 / 500 D5W/1/2NS + KCL 20 mEq Inj 1, 1043.7 / 1043.7 000 ML @ 84 mls/hr IV.CONT . [id number] KI Rx#:[id number] KCl 10 mEq Premix Inj 10 meq In 400 / 400 100 ml @ 100 mls/hr IV.SIG Q1H KI Rx#:[id number] Rocephin Inj 1,000 MG In NS Inj 100 / 100 100 / 100 100 ML @ 200 mls/hr IV.SIG Q24H KI Rx#:[id number] Keppra 1000 mg/100 mL Premix 100 / 100 100 ML @ 400 mls/hr IV.SIG ONCE ONE Rx#:[id number] Oral 720 / 720 Other: # Incontinent Voids 3 Date of Last Bowel Movement 11/12/17 11/12/17 11/12/17 Physical Exam: CONSTITUTIONAL/GENERAL: This is a thin, elderly female lying in bed in no acute distress. TUBES/LINES/DRAINS: Left forearm PIV SKIN: No jaundice, rashes, or lesions. Ecchymoses on upper extremities. Bruises on lower extremities. No wounds seen anteriorly. Skin temperature appropriate. Not diaphoretic. CARDIOVASCULAR: Regular rate and rhythm without murmurs, gallops, or rubs. No JVD. Peripheral pulses symmetric. RESPIRATORY/CHEST: Symmetric, unlabored respirations. Clear to auscultation. Breath sounds equal bilaterally. No wheezes, rales, or rhonchi. GASTROINTESTINAL: Abdomen soft, nondistended. Bowel sounds present. MUSCULOSKELETAL: Extremities without clubbing, cyanosis, or edema. No joint tenderness or effusion noted. No mottling or clubbing. NEUROLOGICAL: Awake, not oriented, not responding to commands, moves spontaneously. PSYCHIATRIC: Agitated, confused, mildly anxious. . Diagnostic Tests Laboratory: Laboratory Results - last 72 hr 11/14/17 11/14/17 11/14/17 06:39 13:30 13:30 WBC RBC Hgb Hct MCV MCH MCHC RDW Plt Count MPV Neut % (Auto) Lymph % (Auto) Rains % (Auto) Eos % (Auto) Baso % (Auto) Neut # (Auto) Lymph # (Auto) Rains # (Auto) Eos # (Auto) Baso # (Auto) WBC Differential Differential Comment ESR Sodium 136 Potassium 3.2 L Chloride 98 Carbon Dioxide 26.2 Anion Gap 12 BUN 14 Creatinine 0.75 Estimated GFR 74 L POC Glucose Random Glucose 120 H Calcium 8.9 Magnesium Total Bilirubin AST ALT Alkaline Phosphatase Ammonia C-Reactive Protein Total Protein Albumin Vitamin B12 399 TSH 1.580 RPR Nonreactive 11/14/17 11/14/17 11/14/17 18:00 18:00 18:00 WBC RBC Hgb Hct MCV MCH MCHC RDW Plt Count MPV Neut % (Auto) Lymph % (Auto) Rains % (Auto) Eos % (Auto) Baso % (Auto) Neut # (Auto) Lymph # (Auto) Rains # (Auto) Eos # (Auto) Baso # (Auto) WBC Differential Differential Comment ESR 26 Sodium Potassium Chloride Carbon Dioxide Anion Gap BUN Creatinine Estimated GFR POC Glucose Random Glucose Calcium Magnesium Total Bilirubin AST ALT Alkaline Phosphatase Ammonia Less than 10 L C-Reactive Protein 2.70 H Total Protein Albumin Vitamin B12 TSH RPR 11/15/17 11/15/17 11/16/17 09:38 17:01 04:54 WBC 9.9 RBC 3.60 L Hgb 12.0 Hct 34.3 L MCV 95.2 MCH 33.3 MCHC 35.0 RDW 12.4 Plt Count 199 MPV 7.0 Neut % (Auto) 81.9 H Lymph % (Auto) 11.5 Rains % (Auto) 6.1 Eos % (Auto) 0.2 Baso % (Auto) 0.3 Neut # (Auto) 8.1 H Lymph # (Auto) 1.1 Rains # (Auto) 0.6 Eos # (Auto) 0.0 Baso # (Auto) 0.0 WBC Differential . Differential Comment Auto diff final ESR Sodium 136 Potassium 3.3 L Chloride 99 Carbon Dioxide 27.6 Anion Gap 9 BUN 11 Creatinine 0.70 Estimated GFR 81 L POC Glucose 137 H Random Glucose 174 H Calcium 9.0 Magnesium Total Bilirubin AST ALT Alkaline Phosphatase Ammonia C-Reactive Protein Total Protein Albumin Vitamin B12 TSH RPR 11/16/17 04:54 WBC RBC Hgb Hct MCV MCH MCHC RDW Plt Count MPV Neut % (Auto) Lymph % (Auto) Rains % (Auto) Eos % (Auto) Baso % (Auto) Neut # (Auto) Lymph # (Auto) Rains # (Auto) Eos # (Auto) Baso # (Auto) WBC Differential Differential Comment ESR Sodium 136 Potassium 3.2 L Chloride 100 Carbon Dioxide 25.7 Anion Gap 10 BUN 9 Creatinine 0.59 Estimated GFR Greater than 89 POC Glucose Random Glucose 122 H Calcium 8.3 L Magnesium 1.8 Total Bilirubin 0.4 AST 17 ALT 14 Alkaline Phosphatase 58 Ammonia C-Reactive Protein Total Protein 5.9 L D Albumin 2.8 L Vitamin B12 TSH RPR Result Diagrams: 11/16/17 04:54 11/16/17 04:54 Microbiology: Microbiology 11/09/17 10:00 Clean Catch Urine Urine Culture - Final Enterobacter cloacae Imaging: Head CT 11/09/17 10:13 CONCLUSION: No acute intracranial injury . Head MRI 11/15/17 07:05 CONCLUSION: 1. Cerebral atrophy. 2. Motion artifact without definite acute intracranial abnormality. 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 She was and had 4 children with her , moving to [place] in 1985. Her earlier this year and 1 of her daughters was killed previously. She has 1 daughter who lives locally, lives with her son Jay and has 1 son, Ed, last known to be in [facility], estranged from the family. Spiritual: She is of the [employer] erendira. Legal: Pending receipt of POA. Ethical issues impacting care: None noted. . Important Contacts: Son: Jay (cell), (home) Daughter Phyllis Posada Son: Ed whereabouts unknown, last known [place], [place]. No contact number available. . Prognosis: Her prognosis is guarded. She is having frequent falls, recurrent UTIs and is steadily declining. She does have some underlying but undiagnosed dementia as her primary care provider retired and she does not have a physician at this time. She is of advanced age and worsening mental status. She is at elevated risk for continued complications, readmissions and decline. . Code Status: No Code DNR Plan: PLAN: Legal decision maker: At this time the patient is not capacitated for decision-making and it is uncertain whether she will ever regain capacity calls have been placed to her son and daughter. Her son Jay states that he is the POA and that he can supply the paperwork on his next visit. Pending callback from the daughter Phyllis. Unable to locate the third sibling, Ed. Goals: Aggressive short of no code. CODE STATUS: DO NOT RESUSCITATE SYMPTOMS: * Confusion: She remains confused today, possibly multifactorial to include UTI , seizures last evening, baseline dementia. Today she states she is the "musa " but cannot answer as to where she is or why she is here. She appears completely disoriented to her current situation. Per the family she does have baseline dementia with some delirium secondary * Agitation: She is mildly agitated today, having improved after a dose of Ativan last evening. She had previously been on Valium for her anxiety and agitation for over 15 years but this was abruptly stopped 2 weeks ago when she ran out. Could benefit from a low-dose, as needed dose of Ativan. * Seizures: No prior seizure history per the son. She had 3 witnessed tonic- clonic seizures last evening, received Ativan and Keppra and has remained seizure-free since that time. Neurology has been following and was advised of the seizure episode. Their reevaluation is pending. Palliative care will continue to follow the patient during hospital course as condition evolves, to assist patient/decision-maker with understanding of their medical conditions, weighing benefits/burdens of treatment options, for clarification of goals of treatment. Additionally will assist with any symptoms of palliative concern. . Attestation Attestation: To help prompt me to consider important information that might be impacting today's encounter and assessment, information from prior notes written by myself or my colleagues may have been "brought forward" into today's note. My signature on this note, however, is an attestation that I personally performed the exam, history, and/or decision-making noted today, and, unless otherwise indicated, the interactions with patient, family, and staff as well as the review of records all occurred today. I also attest that the listed assessment and stated plan reflect my best clinical judgment today based on the combination of historical information, prior notes, and today's exam/ interactions. When time spent is documented, it refers only to time spent today by the signer, or if indicated, combined time spent today by collaborating physician/nurse practitioner. .
--- NOTE | 2017-11-16 21:04 | MG ---
cc: John Bravo MD EEG RECORD NUMBER: [id number] Mild asymmetric left temporal region slowing with theta delta frequencies, noted to be restless with a lot of body movement artifact in the recording. Posterior rhythm, otherwise, shows 6-8 Hz rhythm, 20-50 microvolts. Frequent artifact occurring. Limited driving with photic stimulation. Single-lead EKG showing sinus rhythm. INTERPRETATION: Mild left frontotemporal region slowing, increased beta frequencies. Significant artifact occurring. No obvious active seizure activity. Clinical correlation. MD DAISHA Atkinson/tabitha , 08:48 PM , 08:55 PM
[2017-11-16] MEDS: SODIUM CHLOR 0.9% IV.SIG SCH (23:16)
[2017-11-16] MEDS: ACYCLOVIR IV.SIG SCH (23:16)
[2017-11-17] MEDS: Fosphenytoin Inj 200 MGPE in Sodium Chlor 0.9% Inj 50 ML IV.SIG SCH ×2 (00:27→12:31)
[2017-11-17] MEDS: ACYCLOVIR IV.SIG SCH ×3 (05:04→21:18)
[2017-11-17] MEDS: SODIUM CHLOR 0.9% IV.SIG SCH ×3 (05:04→21:18)
[2017-11-17 07:04] LABS: Baso % (Auto) 0.8 % (0.0-2.0); Eos # (Auto) 0.1 th/mm3 (0.0-0.4); Eos % (Auto) 1.4 % (0.0-4.0); Hematocrit 37.2 % (35.0-46.0); Hemoglobin 12.9 gm/dL (11.6-15.3); Lymph # (Auto) 0.9 th/mm3 (1.0-4.8); Lymph % (Auto) 15.8 % (9.0-44.0); Mean Corpuscular HGB Conc 34.6 % (32.0-36.0); Mean Corpuscular Hemoglobin 33.7 pg (27.0-34.0); Mean Corpuscular Volume 97.5 fL (80.0-100.0); Mean Platelet Volume 7.4 fL (7.0-11.0); Mono # (Auto) 0.5 th/mm3 (0.0-0.9); Mono % (Auto) 8.6 % (0.0-8.0); Neut % (Auto) 73.4 % (16.0-70.0); Platelet Count 181 th/mm3 (150-450); Red Blood Count 3.81 mil/mm3 (4.00-5.30); Red Cell Distribution Width 12.6 % (11.6-17.2); White Blood Count 5.5 th/mm3 (4.0-11.0)
[2017-11-17 07:09] LABS: Anion Gap 6 meq/L (5-15); Calcium 8.5 mg/dL (8.5-10.1); Carbon Dioxide 29.4 meq/L (21.0-32.0); Chloride 101 meq/L (98-107); Glomerular Filtration Rate Greater Than 89 mL/min (>89); Glucose,Random 94 mg/dL (74-106); Potassium 3.4 meq/L (3.5-5.1); Sodium 136 meq/L (136-145)
[2017-11-17 07:20] LABS: Blood Urea Nitrogen 12 mg/dL (7-18)
--- NOTE | 2017-11-17 09:02 | P.PN ---
Subjective Interval history: Pleasantly confused female in bed does not appear in acute distress at this time. Denies any chest pain or shortness of breath. Says she was not eating for 8 days ... Plan for LP Physical Exam Vital signs: Vital Signs 11/16/17 12:00 11/16/17 15:52 11/16/17 20:00 Temperature 97.6 F 98.1 F 97.4 F L Pulse Rate 81 82 82 Respiratory Rate 19 18 18 Blood Pressure 158/68 H 142/71 H Pulse Oximetry 97 98 98 11/16/17 23:49 11/17/17 00:00 11/17/17 03:45 Temperature 97.5 F L Pulse Rate 78 92 H 78 Respiratory Rate 18 Blood Pressure 139/93 H Pulse Oximetry 95 Intake & Output 11/16/17 11/17/17 11/17/17 18:59 06:59 18:59 Intake Total 650 / 650 274.8 / 274.8 Balance 650 / 650 274.8 / 274.8 Weight 45.7 kg Intake: IV 500 / 500 274.8 / 274.8 Zovirax Inj 520 MG In NS Inj 220.8 / 220.8 100 ML @ 110.4 mls/hr IV.SIG Q8H KI Rx#:[id number] Cerebyx Inj 200 MGPE In NS Inj 54 / 54 50 ML @ 216 mls/hr IV.SIG Q12H KI Rx#:[id number] KCl 10 mEq Premix Inj 10 meq In 400 / 400 100 ml @ 100 mls/hr IV.SIG Q1H KI Rx#:[id number] Rocephin Inj 1,000 MG In NS Inj 100 / 100 100 ML @ 200 mls/hr IV.SIG Q24H KI Rx#:[id number] Oral 150 / 150 Other: # Voids 2 2 Date of Last Bowel Movement 11/16/17 11/12/17 # Bowel Movements 1 Narrative: GENERAL: Elderly, frail, pleasantly confused female appears in NAD. CARDIOVASCULAR: Regular rate and rhythm. RESPIRATORY: No accessory muscle use. Clear to auscultation. GASTROINTESTINAL: Abdomen soft, non-tender, nondistended. MUSCULOSKELETAL: Extremities without clubbing, cyanosis, or edema. NEUROLOGICAL: Laying in bed. Oriented to self. Moves all. Results - Labs CBC & Chem 7: 11/17/17 06:06 11/17/17 06:06 Laboratory Results - last 24 hr 11/14/17 11/17/17 11/17/17 13:30 06:06 06:06 WBC 5.5 RBC 3.81 L Hgb 12.9 Hct 37.2 MCV 97.5 MCH 33.7 MCHC 34.6 RDW 12.6 Plt Count 181 MPV 7.4 Neut % (Auto) 73.4 H Lymph % (Auto) 15.8 Anson % (Auto) 8.6 H Eos % (Auto) 1.4 Baso % (Auto) 0.8 Neut # (Auto) 4.0 Lymph # (Auto) 0.9 L Anson # (Auto) 0.5 Eos # (Auto) 0.1 Baso # (Auto) 0.0 WBC Differential . Differential Comment Auto diff final Sodium 136 Potassium 3.4 L Chloride 101 Carbon Dioxide 29.4 Anion Gap 6 BUN 12 Creatinine 0.55 Estimated GFR Greater than 89 Random Glucose 94 Calcium 8.5 Thiamine 155 Assessment and Plan - Assessment (1) Urinary tract infection Code(s): N39.0 - Urinary tract infection, site not specified Status: Acute (2) Hypertensive urgency Code(s): I16.0 - Hypertensive urgency Status: Resolved (3) Metabolic encephalopathy Code(s): G93.41 - Metabolic encephalopathy Status: Acute - Plan 82-year-old female with dementia, hypertension, and hyperlipidemia admitted secondary to urinary tract infection with encephalopathy and hypertensive urgency. UTI UA on admission notable for positive nitrates and leukocyte esterase Culture growing Enterobacter sensitive to cephalosporins Had been transitioned to PO Keflex but now refusing meds so will restart Rocephin Metabolic encephalopathy Patient remains significantly confused, was improving prior to seizure CT head on admission negative eating slightly better Palliative care consulted We will also consult neurology to evaluate for any other causes of acutely worsening dementia, EEG reviewed no active seizure activity She lost her in the past year and depression could be presenting as pseudodementia but she is already being treated with Zoloft CPR elevated 2.7 likely due to UTI, thiamine pending, B12 normal, and TSH normal -Plan for LP Hypertension, improving BP still mildly elevated Continue losartan and Norvasc Continue monitor Refusing PO now. 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
[2017-11-17 10:06] LABS: Prothrombin Time 10.3 sec (9.8-11.6)
[2017-11-17] MEDS: amLODIPine 10 MG Tablet PO SCH (10:29)
[2017-11-17] MEDS: Lactobacillus Acidophilus/L. Spores Tablet PO SCH ×3 (10:37→18:07)
[2017-11-17] MEDS: Sertraline 100 MG Tablet PO SCH (10:39)
--- NOTE | 2017-11-17 11:50 | P.PNPAL ---
Reason for Visit Reason for visit: a. To assist with evaluation and management of symptoms including: Confusion, agitation, seizures b. To assist medical decision maker(s) with: better understanding of current medical conditions; weighing benefits/burdens of medical treatment options; making medical treatment decisions. Subjective Subjective/Interval History: Patient seen today to follow-up on symptom management of confusion, seizures and agitation and assist with goals of medical treatment. Patient remains confused. 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 She is not oriented to time place or purpose. She will occasionally speak her name. She is again mildly agitated and is refusing pills today. She becomes agitated and slightly angry with questions. This is inconsistent with reported behavior at home from the family. She becomes agitated with minimal stimulation, moderate intensity, without combativeness at this evaluation No recurrent seizures noted overnight. She is undergoing lumbar puncture today for further evaluation. EEG showed no seizure activity however had a lot of artifact. She has Lorazepam available for recurrent seizures and is receiving fosphenytoin 200 mgpe every 12 hours. . . Family/Friend Interactions: Son, Jay, had scheduled a meeting for 10:30 AM to meet with palliative care and his mother, however did not arrive at the hospital. Call placed pending return call. . Objective Vital Signs: Vital Signs 11/16/17 12:00 11/16/17 15:52 11/16/17 20:00 Temperature 97.6 F 98.1 F 97.4 F L Pulse Rate 81 82 82 Respiratory Rate 19 18 18 Blood Pressure 158/68 H 142/71 H Pulse Oximetry 97 98 98 11/16/17 23:49 11/17/17 00:00 11/17/17 03:45 Temperature 97.5 F L Pulse Rate 78 92 H 78 Respiratory Rate 18 Blood Pressure 139/93 H Pulse Oximetry 95 11/17/17 08:00 Temperature 97.3 F L Pulse Rate 77 Respiratory Rate 14 Blood Pressure 179/67 H Pulse Oximetry 98 Intake & Output 11/16/17 11/17/17 11/17/17 18:59 06:59 18:59 Intake Total 650 / 650 274.8 / 274.8 Balance 650 / 650 274.8 / 274.8 Weight 100 lb 12.02 oz Intake: IV 500 / 500 274.8 / 274.8 Zovirax Inj 520 MG In NS Inj 220.8 / 220.8 100 ML @ 110.4 mls/hr IV.SIG Q8H KI Rx#:[id number] Cerebyx Inj 200 MGPE In NS Inj 54 / 54 50 ML @ 216 mls/hr IV.SIG Q12H KI Rx#:[id number] KCl 10 mEq Premix Inj 10 meq In 400 / 400 100 ml @ 100 mls/hr IV.SIG Q1H KI Rx#:[id number] Rocephin Inj 1,000 MG In NS Inj 100 / 100 100 ML @ 200 mls/hr IV.SIG Q24H KI Rx#:[id number] Oral 150 / 150 Other: # Voids 2 2 Date of Last Bowel Movement 11/16/17 11/12/17 # Bowel Movements 1 Physical Exam: CONSTITUTIONAL/GENERAL: This is a thin, elderly female sitting up in bed in no acute distress. TUBES/LINES/DRAINS: PIV SKIN: No jaundice, rashes, or lesions. Ecchymoses on upper extremities. Bruises on lower extremities. No wounds seen anteriorly. Skin temperature appropriate. Not diaphoretic. CARDIOVASCULAR: Regular rate and rhythm without murmurs, gallops, or rubs. No JVD. Peripheral pulses symmetric. RESPIRATORY/CHEST: Symmetric, unlabored respirations. Clear to auscultation. Breath sounds equal bilaterally. No wheezes, rales, or rhonchi. GASTROINTESTINAL: Abdomen soft, nondistended. Bowel sounds present. MUSCULOSKELETAL: Extremities without clubbing, cyanosis, or edema. No joint tenderness or effusion noted. No mottling or clubbing. NEUROLOGICAL: Awake, not oriented, not responding to commands, moves spontaneously. PSYCHIATRIC: Agitated, confused, mildly anxious. . Diagnostic Tests Laboratory: Laboratory Results - last 72 hr 11/14/17 11/14/17 11/14/17 13:30 13:30 13:30 WBC RBC Hgb Hct MCV MCH MCHC RDW Plt Count MPV Neut % (Auto) Lymph % (Auto) [place] % (Auto) Eos % (Auto) Baso % (Auto) Neut # (Auto) Lymph # (Auto) [place] # (Auto) Eos # (Auto) Baso # (Auto) WBC Differential Differential Comment ESR PT INR APTT Sodium Potassium Chloride Carbon Dioxide Anion Gap BUN Creatinine Estimated GFR POC Glucose Random Glucose Calcium Magnesium Total Bilirubin AST ALT Alkaline Phosphatase Ammonia C-Reactive Protein Total Protein Albumin Thiamine 155 Vitamin B12 399 TSH 1.580 RPR Nonreactive 11/14/17 11/14/17 11/14/17 18:00 18:00 18:00 WBC RBC Hgb Hct MCV MCH MCHC RDW Plt Count MPV Neut % (Auto) Lymph % (Auto) [place] % (Auto) Eos % (Auto) Baso % (Auto) Neut # (Auto) Lymph # (Auto) [place] # (Auto) Eos # (Auto) Baso # (Auto) WBC Differential Differential Comment ESR 26 PT INR APTT Sodium Potassium Chloride Carbon Dioxide Anion Gap BUN Creatinine Estimated GFR POC Glucose Random Glucose Calcium Magnesium Total Bilirubin AST ALT Alkaline Phosphatase Ammonia Less than 10 L C-Reactive Protein 2.70 H Total Protein Albumin Thiamine Vitamin B12 TSH RPR 11/15/17 11/15/17 11/16/17 09:38 17:01 04:54 WBC 9.9 RBC 3.60 L Hgb 12.0 Hct 34.3 L MCV 95.2 MCH 33.3 MCHC 35.0 RDW 12.4 Plt Count 199 MPV 7.0 Neut % (Auto) 81.9 H Lymph % (Auto) 11.5 [place] % (Auto) 6.1 Eos % (Auto) 0.2 Baso % (Auto) 0.3 Neut # (Auto) 8.1 H Lymph # (Auto) 1.1 [place] # (Auto) 0.6 Eos # (Auto) 0.0 Baso # (Auto) 0.0 WBC Differential . Differential Comment Auto diff final ESR PT INR APTT Sodium 136 Potassium 3.3 L Chloride 99 Carbon Dioxide 27.6 Anion Gap 9 BUN 11 Creatinine 0.70 Estimated GFR 81 L POC Glucose 137 H Random Glucose 174 H Calcium 9.0 Magnesium Total Bilirubin AST ALT Alkaline Phosphatase Ammonia C-Reactive Protein Total Protein Albumin Thiamine Vitamin B12 TSH RPR 11/16/17 11/17/17 11/17/17 04:54 06:06 06:06 WBC 5.5 RBC 3.81 L Hgb 12.9 Hct 37.2 MCV 97.5 MCH 33.7 MCHC 34.6 RDW 12.6 Plt Count 181 MPV 7.4 Neut % (Auto) 73.4 H Lymph % (Auto) 15.8 [place] % (Auto) 8.6 H Eos % (Auto) 1.4 Baso % (Auto) 0.8 Neut # (Auto) 4.0 Lymph # (Auto) 0.9 L [place] # (Auto) 0.5 Eos # (Auto) 0.1 Baso # (Auto) 0.0 WBC Differential . Differential Comment Auto diff final ESR PT INR APTT Sodium 136 136 Potassium 3.2 L 3.4 L Chloride 100 101 Carbon Dioxide 25.7 29.4 Anion Gap 10 6 BUN 9 12 Creatinine 0.59 0.55 Estimated GFR Greater than 89 Greater than 89 POC Glucose Random Glucose 122 H 94 Calcium 8.3 L 8.5 Magnesium 1.8 Total Bilirubin 0.4 AST 17 ALT 14 Alkaline Phosphatase 58 Ammonia C-Reactive Protein Total Protein 5.9 L D Albumin 2.8 L Thiamine Vitamin B12 TSH RPR 11/17/17 11/17/17 09:38 09:38 WBC RBC Hgb Hct MCV MCH MCHC RDW Plt Count MPV Neut % (Auto) Lymph % (Auto) [place] % (Auto) Eos % (Auto) Baso % (Auto) Neut # (Auto) Lymph # (Auto) [place] # (Auto) Eos # (Auto) Baso # (Auto) WBC Differential Differential Comment ESR PT 10.3 INR 1.0 APTT 24.2 L Sodium Potassium Chloride Carbon Dioxide Anion Gap BUN Creatinine Estimated GFR POC Glucose Random Glucose Calcium Magnesium Total Bilirubin AST ALT Alkaline Phosphatase Ammonia C-Reactive Protein Total Protein Albumin Thiamine Vitamin B12 TSH RPR Result Diagrams: 11/17/17 06:06 11/17/17 06:06 Microbiology: Microbiology 11/09/17 10:00 Clean Catch Urine Urine Culture - Final Enterobacter cloacae Imaging: Head CT 11/09/17 10:13 CONCLUSION: No acute intracranial injury . Head MRI 11/15/17 07:05 CONCLUSION: 1. Cerebral atrophy. 2. Motion artifact without definite acute intracranial abnormality. Procedures: 11/17: Lumbar puncture. . 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 She was and had 4 children with her , moving to [place] in 1985. Her earlier this year and 1 of her daughters was killed previously. She has 1 daughter who lives locally, lives with her son Jay and has 1 son, Ed, last known to be in [facility], estranged from the family. Spiritual: She is of the [employer] e[employer]. Legal: Pending receipt of POA. Ethical issues impacting care: None noted. . Important Contacts: Son: Jay (cell), (home) Daughter Phyllis Posada Son: Ed whereabouts unknown, last known [place], [place]. No contact number available. . Prognosis: Her prognosis is guarded. She is having frequent falls, recurrent UTIs and is steadily declining. She does have some underlying but undiagnosed dementia as her primary care provider retired and she does not have a physician at this time. She is of advanced age and worsening mental status. She is at elevated risk for continued complications, readmissions and decline. . Code Status: No Code DNR Plan: PLAN: Legal decision maker: At this time the patient is not capacitated for decision-making and it is uncertain whether she will ever regain capacity calls have been placed to her son and daughter. Her son Jay states that he is the POA and that he can supply the paperwork on his next visit. Pending callback from the daughter Phyllis. Unable to locate the third sibling, Ed. Goals: Aggressive short of no code. CODE STATUS: DO NOT RESUSCITATE SYMPTOMS: * Confusion: She remains confused today, possibly multifactorial to include UTI , seizures, baseline dementia. 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 She appears completely disoriented to her current situation. Per the family she does have baseline dementia but may have some delirium secondary to hospitalization. She is in a well lit room in front of the nurses station for close monitoring. Per family, she is more disoriented than her baseline. * Agitation: She is mildly agitated today. She had previously been on Valium for her anxiety and agitation for over 15 years but this was abruptly stopped 2 weeks ago when she ran out. Could benefit from a low-dose, as needed dose of Ativan. * Seizures: No prior seizure history per the son. She had 3 witnessed tonic- clonic seizures 11/15, received Ativan and Keppra and has remained seizure-free since that time. Neurology has been following and was advised of the seizure episode. Lumbar puncture ordered and pending. EEG shows no seizure activity. Management per neurology. Palliative care will continue to follow the patient during hospital course as condition evolves, to assist patient/decision-maker with understanding of their medical conditions, weighing benefits/burdens of treatment options, for clarification of goals of treatment. Additionally will assist with any symptoms of palliative concern. . Attestation Attestation: To help prompt me to consider important information that might be impacting today's encounter and assessment, information from prior notes written by myself or my colleagues may have been "brought forward" into today's note. My signature on this note, however, is an attestation that I personally performed the exam, history, and/or decision-making noted today, and, unless otherwise indicated, the interactions with patient, family, and staff as well as the review of records all occurred today. I also attest that the listed assessment and stated plan reflect my best clinical judgment today based on the combination of historical information, prior notes, and today's exam/ interactions. When time spent is documented, it refers only to time spent today by the signer, or if indicated, combined time spent today by collaborating physician/nurse practitioner. .
[2017-11-17 12:24] LABS: Total Protein,CSF 33.3 mg/dL (15.0-45.0)
--- NOTE | 2017-11-17 12:49 | IR ---
EXAM DATE: 11/17/2017 12:06 PM EDT AGE/SEX: 82 years / Female INDICATIONS: Patient presents with altered mental status in need of lumbar puncture with opening pre ssures. CLINICAL DATA: This is the patient's initial encounter. Patient reports that signs and symptoms have been present for 1 week and indicates a pain score of Nonresponsive. MEDICAL/SURGICAL HISTORY: . Dementia, Hypertension, Hyperlipidemia, Urinary tract infection, En cephalopathy, Hypertension. None. COMPARISON: [facility], CT CERVICAL SPINE W/O CONTRAST, 08/29/2017. . FLUORO TIME (min): 0.40 IMAGE SERIES: 1 ACCESS SITE: L3-4 LUMBAR PUNCTURE TIME: 11:32 hours OPENING PRESSURE: 6 cm of water CLOSING PRESSURE: not requested FLUID: Total volume of 11 cc of clear fluid was removed. Fluid was sent to lab for ordered studies. ; . . PROCEDURE: 1. Fluoroscopic guided lumbar puncture. The risks, benefits and alternatives to the procedure were explained and verbal and written consent w as obtained. The site was prepped in sterile fashion. Full sterile technique was used, including ca p, mask, sterile gloves and gown and a large sterile sheet. Hand hygiene and 2% chlorhexidine and/or betadine/alcohol prep was utilized per protocol for cutaneous antisepsis. The skin and subcutaneous tissues were infiltrated with local anesthetic solution. With fluoroscopic guidance the lumbar thecal sac was punctured at the level above. The fluid describ ed above was removed without difficulty. The patient tolerated the procedure well and there were no complications. CONCLUSION: 1. Uncomplicated fluoroscopically guided lumbar puncture. Electronically signed by: Barry Sage MD 11/17/2017 12:48 PM EDT
[2017-11-17 13:03] LABS: RBC on Tube 4 5 /mm3
[2017-11-17 13:40] LABS: Neutrophils,CSF 0 %
[2017-11-17 13:44] LABS: RBC on Tube 1 176 /mm3
[2017-11-17] MEDS: Sod Chloride 0.9% Inj 1,000 ML IV.CONT SCH (13:56)
--- NOTE | 2017-11-17 20:57 | P.PNNEU ---
Subjective Subjective Comments: no cp, no dyspnea, no ambriz, no focal weakness, no vision loss Active Medications: Active Medications Al Hydroxide/Mg Hydroxide (Milk Of Magnsara Liq) 30 ml PO Q12H PRN PRN Reason: Mild Constipation Amlodipine Besylate (Norvasc) 10 mg PO DAILY [facility] Last Admin: 11/17/17 10:29 Dose: 10 mg Aspirin (Aspirin Chew) 81 mg PO DAILY [facility] Last Admin: 11/17/17 10:37 Dose: Not Given Clonidine HCl (Catapress-Tts 0.1 Mg Patch.7d) 1 patch T-DERMAL Q7D [facility] Last Admin: 11/15/17 12:07 Dose: 1 patch Enalaprilat (Vasotec Inj) 1.25 mg IV.PUSH Q6H PRN PRN Reason: SBP>160, DBP>90 Last Admin: 11/17/17 10:34 Dose: 1.25 mg Ceftriaxone Sodium 1,000 mg/ (Sodium Chloride) 100 mls @ 200 mls/hr IV.SIG Q24H [facility] Last Infusion: 11/17/17 13:28 Dose: Infused Sodium Chloride (Ns Inj) 1,000 mls @ 30 mls/hr IV.CONT .Q24H [facility] Last Admin: 11/17/17 13:56 Dose: Not Given Acyclovir Sodium 520 mg/ (Sodium Chloride) 110.4 mls @ 110.4 mls/hr IV.SIG Q8H [facility] Last Infusion: 11/17/17 14:58 Dose: Infused Fosphenytoin Sodium 200 mgpe/ (Sodium Chloride) 54 mls @ 216 mls/hr IV.SIG Q12H [facility] Last Infusion: 11/17/17 13:27 Dose: Infused Lactobacillus Acidophilus (Lactinex) 1 tab PO TID [facility] Last Admin: 11/17/17 18:07 Dose: Not Given Lorazepam (Ativan Inj) 1 mg IV.PUSH Q15M PRN PRN Reason: SEIZURES Losartan Potassium (Cozaar) 100 mg PO DAILY [facility] Last Admin: 11/17/17 10:30 Dose: 100 mg Ondansetron HCl (Zofran Inj) 4 mg IV.PUSH Q6H PRN PRN Reason: NAUSEA OR VOMITING Patch Removal (Remove Old Patch) 1 each T-DERMAL Q7D [facility] Potassium Chloride (K-Dur) 20 meq PO DAILY [facility] Last Admin: 11/17/17 10:37 Dose: Not Given Pravastatin Sodium (Pravachol) 80 mg PO DAILY [facility] Last Admin: 11/17/17 10:38 Dose: Not Given Sertraline HCl (Zoloft) 100 mg PO DAILY [facility] Last Admin: 11/17/17 10:39 Dose: Not Given Sodium Chloride (Ns Flush) 2 ml IV.FLUSH BID [facility] Last Admin: 11/17/17 10:41 Dose: 2 ml Sodium Chloride (Ns Flush) 2 ml IV.FLUSH PRN PRN PRN Reason: FLUSH AFTER USING IV ACCESS Allergies/Adverse Reactions: Allergies Allergy/AdvReac Type Severity Reaction Status Date / Time acetaminophen Allergy Severe Rash Verified 11/01/17 08:46 ciprofloxacin Allergy Severe UNKNOWN Verified 11/01/17 08:46 codeine Allergy Severe Rash Verified 11/01/17 08:46 diclofenac Allergy Severe UNKNOWN Verified 11/01/17 08:46 dicyclomine Allergy Severe UNKNOWN Verified 11/01/17 08:46 doxycycline Allergy Severe UNKNOWN Verified 11/01/17 08:46 duloxetine Allergy Severe UNKNOWN Verified 11/01/17 08:46 etodolac Allergy Severe Rash Verified 11/01/17 08:46 fexofenadine Allergy Severe UNKNOWN Verified 11/01/17 08:46 flurbiprofen Allergy Severe Rash Verified 11/01/17 08:46 gabapentin Allergy Severe UNKNOWN Verified 11/01/17 08:46 ibuprofen Allergy Severe Rash Verified 11/01/17 08:46 indomethacin Allergy Severe Rash Verified 11/01/17 08:46 ketoprofen Allergy Severe Rash Verified 11/01/17 08:46 ketorolac Allergy Severe Rash Verified 11/01/17 08:46 levofloxacin Allergy Severe UNKNOWN Verified 11/01/17 08:46 meloxicam Allergy Severe UNKNOWN Verified 11/01/17 08:46 morphine Allergy Severe Rash Verified 11/01/17 08:46 naproxen Allergy Severe Rash Verified 11/01/17 08:46 oxaprozin Allergy Severe Rash Verified 11/01/17 08:46 penicillin G Allergy Severe Rash Verified 11/01/17 08:46 pentazocine Allergy Severe UNKNOWN Verified 11/01/17 08:46 pregabalin Allergy Severe INCREASE Verified 11/01/17 08:46 BLOOD PRESSURE rabeprazole Allergy Severe UNKNOWN Verified 11/01/17 08:46 risedronate sodium Allergy Severe UNKNOWN Verified 11/01/17 08:46 Sulfa (Sulfonamide Allergy Severe Rash Verified 11/01/17 08:46 Antibiotics) zolpidem Allergy Severe UNKNOWN Verified 11/01/17 08:46 Review of Systems All other systems reviewed negative except as stated in HPI Physical Exam Vital signs: Vital Signs 11/16/17 23:49 11/17/17 00:00 11/17/17 03:45 Temperature 97.5 F L Pulse Rate 78 92 H 78 Respiratory Rate 18 Blood Pressure 139/93 H Pulse Oximetry 95 11/17/17 08:00 11/17/17 12:00 11/17/17 13:44 Temperature 97.3 F L 97.6 F Pulse Rate 77 80 80 Respiratory Rate 14 14 16 Blood Pressure 179/67 H 180/82 H 138/85 Pulse Oximetry 98 96 96 11/17/17 16:00 Temperature 98.4 F Pulse Rate 88 Respiratory Rate 16 Blood Pressure 150/87 H Pulse Oximetry 95 Intake & Output 11/17/17 11/17/17 11/18/17 06:59 18:59 06:59 Intake Total 274.8 / 274.8 264.4 / 264.4 Balance 274.8 / 274.8 264.4 / 264.4 Weight 45.7 kg Intake: IV 274.8 / 274.8 264.4 / 264.4 Zovirax Inj 520 MG In NS Inj 220.8 / 220.8 110.4 / 110.4 100 ML @ 110.4 mls/hr IV.SIG Q8H KI Rx#:[id number] Cerebyx Inj 200 MGPE In NS Inj 54 / 54 54 / 54 50 ML @ 216 mls/hr IV.SIG Q12H KI Rx#:[id number] Rocephin Inj 1,000 MG In NS Inj 100 / 100 100 ML @ 200 mls/hr IV.SIG Q24H KI Rx#:[id number] Other: # Voids 2 Date of Last Bowel Movement 11/12/17 11/17/17 Narrative: GENERAL: in NAD, SKIN: Warm and dry. HEAD: Atraumatic. Normocephalic. EYES: Pupils equal and round. No scleral icterus. ENT: No nasal bleeding or discharge. Mucous membranes pink and moist. NECK: Trachea midline. No JVD. CARDIOVASCULAR: Regular rate and rhythm. RESPIRATORY: No accessory muscle use. Clear to auscultation. GASTROINTESTINAL: Abdomen soft, non-tender, nondistended. MUSCULOSKELETAL: Extremities without clubbing, cyanosis, or edema. NEUROLOGICAL: Laying in bed, states regular doctor, oriented 2 thought she is in a hospital in [place]. Current president Morgan, primary care physician she states Dr. Bardales, able name simple objects follow motor request looks comfortable eomi, face sym, goff to gravity, no involuntary movements PSYCHIATRIC: more co-operative - Constitutional no acute distress - Routine HEENT Exam Head: Present: normocephalic Eye: Present: EOMI Objective Laboratory Results - last 24 hr 11/17/17 11/17/17 11/17/17 06:06 06:06 09:38 WBC 5.5 RBC 3.81 L Hgb 12.9 Hct 37.2 MCV 97.5 MCH 33.7 MCHC 34.6 RDW 12.6 Plt Count 181 MPV 7.4 Neut % (Auto) 73.4 H Lymph % (Auto) 15.8 [place] % (Auto) 8.6 H Eos % (Auto) 1.4 Baso % (Auto) 0.8 Neut # (Auto) 4.0 Lymph # (Auto) 0.9 L [place] # (Auto) 0.5 Eos # (Auto) 0.1 Baso # (Auto) 0.0 WBC Differential . Differential Comment Auto diff final PT INR APTT 24.2 L Sodium 136 Potassium 3.4 L Chloride 101 Carbon Dioxide 29.4 Anion Gap 6 BUN 12 Creatinine 0.55 Estimated GFR Greater than 89 Random Glucose 94 Calcium 8.5 CSF Volume (1) CSF Supernat Color (1) CSF Gross Blood (1) CSF WBC (1) CSF RBC (1) CSF Volume (2) CSF Supernat Color (2) CSF Gross Blood (2) CSF Volume (3) CSF Supernat Color (3) CSF Gross Blood (3) CSF Volume (4) CSF Supernat Color (4) CSF Gross Blood (4) CSF WBC (4) CSF RBC (4) CSF Neutrophils % CSF Lymphocytes % CSF Comment CSF Glucose CSF Total Protein CSF N.mening B/E.coli K1 CSF N.meningitidis A/Y Bacterial Ag Source H.influenzae Type B Ag N. meningitidis C/W 135 Group B Strep Antigen S. pneumoniae Antigen 11/17/17 11/17/17 11/17/17 09:38 11:23 11:23 WBC RBC Hgb Hct MCV MCH MCHC RDW Plt Count MPV Neut % (Auto) Lymph % (Auto) [place] % (Auto) Eos % (Auto) Baso % (Auto) Neut # (Auto) Lymph # (Auto) [place] # (Auto) Eos # (Auto) Baso # (Auto) WBC Differential Differential Comment PT 10.3 INR 1.0 APTT Sodium Potassium Chloride Carbon Dioxide Anion Gap BUN Creatinine Estimated GFR Random Glucose Calcium CSF Volume (1) 2.5 CSF Supernat Color (1) Clear CSF Gross Blood (1) Trace CSF WBC (1) CSF RBC (1) CSF Volume (2) 2.0 CSF Supernat Color (2) Clear CSF Gross Blood (2) Trace CSF Volume (3) 2.0 CSF Supernat Color (3) Clear CSF Gross Blood (3) Trace CSF Volume (4) 3.5 CSF Supernat Color (4) Clear CSF Gross Blood (4) 0 CSF WBC (4) 0 CSF RBC (4) 5 H CSF Neutrophils % 0 CSF Lymphocytes % 3 CSF Comment CSF Glucose CSF Total Protein CSF N.mening B/E.coli K1 Cancelled CSF N.meningitidis A/Y Cancelled Bacterial Ag Source Cancelled H.influenzae Type B Ag Cancelled N. meningitidis C/W 135 Cancelled Group B Strep Antigen Cancelled S. pneumoniae Antigen Cancelled 11/17/17 11/17/17 11/17/17 11:23 11:23 11:23 WBC RBC Hgb Hct MCV MCH MCHC RDW Plt Count MPV Neut % (Auto) Lymph % (Auto) [place] % (Auto) Eos % (Auto) Baso % (Auto) Neut # (Auto) Lymph # (Auto) [place] # (Auto) Eos # (Auto) Baso # (Auto) WBC Differential Differential Comment PT INR APTT Sodium Potassium Chloride Carbon Dioxide Anion Gap BUN Creatinine Estimated GFR Random Glucose Calcium CSF Volume (1) CSF Supernat Color (1) CSF Gross Blood (1) CSF WBC (1) 1 CSF RBC (1) 176 H CSF Volume (2) CSF Supernat Color (2) CSF Gross Blood (2) CSF Volume (3) CSF Supernat Color (3) CSF Gross Blood (3) CSF Volume (4) CSF Supernat Color (4) CSF Gross Blood (4) CSF WBC (4) CSF RBC (4) CSF Neutrophils % CSF Lymphocytes % CSF Comment CSF Glucose Cancelled 58 CSF Total Protein 33.3 CSF N.mening B/E.coli K1 CSF N.meningitidis A/Y Bacterial Ag Source H.influenzae Type B Ag N. meningitidis C/W 135 Group B Strep Antigen S. pneumoniae Antigen Microbiology 11/17/17 11:23 Gram Stain - Final Lumbar Puncture Review/Management - Diagnosis (1) Cognitive and behavioral changes Code(s): R41.89 - Other symptoms and signs involving cognitive functions and awareness; R46.89 - Other symptoms and signs involving appearance and behavior Status: Acute Current Visit: Yes (2) Urinary tract infection Code(s): N39.0 - Urinary tract infection, site not specified Status: Acute Current Visit: Yes (3) Hypertensive urgency Code(s): I16.0 - Hypertensive urgency Status: Resolved Current Visit: Yes (4) Metabolic encephalopathy Code(s): G93.41 - Metabolic encephalopathy Status: Acute Current Visit: Yes - Review/Management Plan: etiology; emerging dementia worsened by uti/htn versus seizure activity EEG demonstrating left temporal slowing; may be associated with dementia Apparently had seizures couple days ago CSF reviewed negative for infection at this point. Overall mental status and behavior improved since admission recs Follow-up Dilantin level Change to p.o. Dilantin Follow-up rest of CSF studies Discharge planning
[2017-11-18] MEDS: ACYCLOVIR IV.SIG SCH (05:26)
[2017-11-18] MEDS: SODIUM CHLOR 0.9% IV.SIG SCH (05:26)
[2017-11-18] MEDS: Lactobacillus Acidophilus/L. Spores Tablet PO SCH ×3 (08:29→17:32)
[2017-11-18] MEDS: amLODIPine 10 MG Tablet PO SCH (08:29)
[2017-11-18] MEDS: Sertraline 100 MG Tablet PO SCH (08:29)
--- NOTE | 2017-11-18 08:42 | P.PN ---
Subjective Interval history: The patient is pleasantly confused she is in bed appears not acute distress at this time. Denies having headaches, change in vision. No seizures overnight. No new motor deficit she is following some commands however she is reluctant answering questions and following commands. Physical Exam Vital signs: Vital Signs 11/17/17 12:00 11/17/17 13:44 11/17/17 16:00 Temperature 97.6 F 98.4 F Pulse Rate 80 80 88 Respiratory Rate 14 16 16 Blood Pressure 180/82 H 138/85 150/87 H Pulse Oximetry 96 96 95 11/17/17 21:00 11/18/17 00:00 11/18/17 03:18 Temperature 99.1 F Pulse Rate 86 87 Respiratory Rate 18 15 Blood Pressure 151/67 H Pulse Oximetry 96 11/18/17 04:00 11/18/17 08:00 Temperature 98.3 F 98.0 F Pulse Rate 90 86 Respiratory Rate 18 17 Blood Pressure 153/64 H 148/70 H Pulse Oximetry 97 96 Intake & Output 11/17/17 11/18/17 11/18/17 18:59 06:59 18:59 Intake Total 264.4 / 264.4 130.4 / 130.4 110.4 / 110.4 Balance 264.4 / 264.4 130.4 / 130.4 110.4 / 110.4 Weight 46.3 kg Intake: IV 264.4 / 264.4 110.4 / 110.4 110.4 / 110.4 Zovirax Inj 520 MG In NS Inj 110.4 / 110.4 110.4 / 110.4 110.4 / 110.4 100 ML @ 110.4 mls/hr IV.SIG Q8H [facility] Rx#:[id number] Cerebyx Inj 200 MGPE In NS Inj 54 / 54 50 ML @ 216 mls/hr IV.SIG Q12H [facility] Rx#:[id number] Rocephin Inj 1,000 MG In NS Inj 100 / 100 100 ML @ 200 mls/hr IV.SIG Q24H [facility] Rx#:[id number] Oral 20 / 20 Other: # Voids 3 Date of Last Bowel Movement 11/17/17 # Bowel Movements 1 Narrative: GENERAL: in NAD, SKIN: Warm and dry. HEAD: Atraumatic. Normocephalic. EYES: Pupils equal and round. No scleral icterus. ENT: No nasal bleeding or discharge. Mucous membranes pink and moist. NECK: Trachea midline. No JVD. CARDIOVASCULAR: Regular rate and rhythm. RESPIRATORY: No accessory muscle use. Clear to auscultation. GASTROINTESTINAL: Abdomen soft, non-tender, nondistended. MUSCULOSKELETAL: Extremities without clubbing, cyanosis, or edema. NEUROLOGICAL: Laying in bed, states regular doctor, oriented 2 thought she is in a hospital in [place]. Current president Rahjean-pierre, primary care physician she states Dr. Bardales, able name simple objects follow motor request looks comfortable eomi, face sym, goff to gravity, no involuntary movements PSYCHIATRIC: more co-operative Results - Labs CBC & Chem 7: 11/17/17 06:06 11/17/17 06:06 Laboratory Results - last 24 hr 11/17/17 11/17/17 11/17/17 06:06 09:38 09:38 PT 10.3 INR 1.0 APTT 24.2 L CSF Volume (1) CSF Supernat Color (1) CSF Gross Blood (1) CSF WBC (1) CSF RBC (1) CSF Volume (2) CSF Supernat Color (2) CSF Gross Blood (2) CSF Volume (3) CSF Supernat Color (3) CSF Gross Blood (3) CSF Volume (4) CSF Supernat Color (4) CSF Gross Blood (4) CSF WBC (4) CSF RBC (4) CSF Neutrophils % CSF Lymphocytes % CSF Comment CSF Glucose CSF Total Protein CSF N.mening B/E.coli K1 CSF N.meningitidis A/Y Phenytoin 4.9 L Bacterial Ag Source H.influenzae Type B Ag N. meningitidis C/W 135 Group B Strep Antigen S. pneumoniae Antigen 11/17/17 11/17/17 11/17/17 11:23 11:23 11:23 PT INR APTT CSF Volume (1) 2.5 CSF Supernat Color (1) Clear CSF Gross Blood (1) Trace CSF WBC (1) CSF RBC (1) CSF Volume (2) 2.0 CSF Supernat Color (2) Clear CSF Gross Blood (2) Trace CSF Volume (3) 2.0 CSF Supernat Color (3) Clear CSF Gross Blood (3) Trace CSF Volume (4) 3.5 CSF Supernat Color (4) Clear CSF Gross Blood (4) 0 CSF WBC (4) 0 CSF RBC (4) 5 H CSF Neutrophils % 0 CSF Lymphocytes % 3 CSF Comment CSF Glucose Cancelled CSF Total Protein CSF N.mening B/E.coli K1 Cancelled CSF N.meningitidis A/Y Cancelled Phenytoin Bacterial Ag Source Cancelled H.influenzae Type B Ag Cancelled N. meningitidis C/W 135 Cancelled Group B Strep Antigen Cancelled S. pneumoniae Antigen Cancelled 11/17/17 11/17/17 11/18/17 11:23 11:23 06:20 PT INR APTT CSF Volume (1) CSF Supernat Color (1) CSF Gross Blood (1) CSF WBC (1) 1 CSF RBC (1) 176 H CSF Volume (2) CSF Supernat Color (2) CSF Gross Blood (2) CSF Volume (3) CSF Supernat Color (3) CSF Gross Blood (3) CSF Volume (4) CSF Supernat Color (4) CSF Gross Blood (4) CSF WBC (4) CSF RBC (4) CSF Neutrophils % CSF Lymphocytes % CSF Comment CSF Glucose 58 CSF Total Protein 33.3 CSF N.mening B/E.coli K1 CSF N.meningitidis A/Y Phenytoin 6.6 L Bacterial Ag Source H.influenzae Type B Ag N. meningitidis C/W 135 Group B Strep Antigen S. pneumoniae Antigen Microbiology 11/17/17 11:23 Lumbar Puncture Gram Stain - Final 11/17/17 11:23 Lumbar Puncture CSF Culture - Preliminary No growth in 24 hours - Imaging Impressions Lumbar Puncture Fluoroscopy 11/17/17 21:18 CONCLUSION: 1. Uncomplicated fluoroscopically guided lumbar puncture. Assessment and Plan - Assessment (1) Urinary tract infection Code(s): N39.0 - Urinary tract infection, site not specified Status: Acute (2) Hypertensive urgency Code(s): I16.0 - Hypertensive urgency Status: Resolved (3) Metabolic encephalopathy Code(s): G93.41 - Metabolic encephalopathy Status: Acute - Plan 82-year-old female with dementia, hypertension, and hyperlipidemia admitted secondary to urinary tract infection with encephalopathy and hypertensive urgency. UTI UA on admission notable for positive nitrates and leukocyte esterase Culture growing Enterobacter sensitive to cephalosporins Had been transitioned to PO Keflex but now refusing meds so will restart Rocephin Metabolic encephalopathy Patient remains significantly confused, was improving prior to seizure CT head on admission negative eating slightly better Palliative care consulted We will also consult neurology to evaluate for any other causes of acutely worsening dementia, EEG reviewed no active seizure activity, however shows slowing right temporal suggesting probable dementia She lost her in the past year and depression 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 CSF no signs of infection, ff up results - Monitor dilantin level Hypertension, improving BP still mildly elevated Continue losartan and Norvasc Continue monitor Refusing PO now. 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
[2017-11-18] MEDS ORDERED: Phenytoin Sodium 100 MG Capsule PO SCH ×2 (09:00→10:10)
--- NOTE | 2017-11-18 10:12 | P.PNNEU ---
Subjective Subjective Comments: no cp, no dyspnea, no ambriz, no focal weakness, no vision loss Active Medications: Active Medications Al Hydroxide/Mg Hydroxide (Milk Of Magnsara Liq) 30 ml PO Q12H PRN PRN Reason: Mild Constipation Amlodipine Besylate (Norvasc) 10 mg PO DAILY [facility] Last Admin: 11/18/17 08:29 Dose: 10 mg Aspirin (Aspirin Chew) 81 mg PO DAILY [facility] Last Admin: 11/18/17 08:28 Dose: 81 mg Clonidine HCl (Catapress-Tts 0.1 Mg Patch.7d) 1 patch T-DERMAL Q7D [facility] Last Admin: 11/15/17 12:07 Dose: 1 patch Enalaprilat (Vasotec Inj) 1.25 mg IV.PUSH Q6H PRN PRN Reason: SBP>160, DBP>90 Last Admin: 11/17/17 10:34 Dose: 1.25 mg Ceftriaxone Sodium 1,000 mg/ (Sodium Chloride) 100 mls @ 200 mls/hr IV.SIG Q24H [facility] Last Infusion: 11/17/17 13:28 Dose: Infused Sodium Chloride (Ns Inj) 1,000 mls @ 30 mls/hr IV.CONT .Q24H [facility] Last Infusion: 11/18/17 02:46 Dose: 0 mls/hr Acyclovir Sodium 520 mg/ (Sodium Chloride) 110.4 mls @ 110.4 mls/hr IV.SIG Q8H [facility] Last Infusion: 11/18/17 07:28 Dose: Infused Lactobacillus Acidophilus (Lactinex) 1 tab PO TID [facility] Last Admin: 11/18/17 08:29 Dose: 1 tab Lorazepam (Ativan Inj) 1 mg IV.PUSH Q15M PRN PRN Reason: SEIZURES Losartan Potassium (Cozaar) 100 mg PO DAILY [facility] Last Admin: 11/18/17 08:29 Dose: 100 mg Ondansetron HCl (Zofran Inj) 4 mg IV.PUSH Q6H PRN PRN Reason: NAUSEA OR VOMITING Patch Removal (Remove Old Patch) 1 each T-DERMAL Q7D [facility] Phenytoin Sodium (Dilantin) 100 mg PO TID [facility] Last Admin: 11/18/17 08:29 Dose: 100 mg Potassium Chloride (K-Dur) 20 meq PO DAILY [facility] Last Admin: 11/18/17 08:29 Dose: 20 meq Pravastatin Sodium (Pravachol) 80 mg PO DAILY [facility] Last Admin: 11/18/17 08:28 Dose: 80 mg Sertraline HCl (Zoloft) 100 mg PO DAILY [facility] Last Admin: 11/18/17 08:29 Dose: 100 mg Sodium Chloride (Ns Flush) 2 ml IV.FLUSH BID [facility] Last Admin: 11/18/17 08:29 Dose: 2 ml Sodium Chloride (Ns Flush) 2 ml IV.FLUSH PRN PRN PRN Reason: FLUSH AFTER USING IV ACCESS Allergies/Adverse Reactions: Allergies Allergy/AdvReac Type Severity Reaction Status Date / Time acetaminophen Allergy Severe Rash Verified 11/01/17 08:46 ciprofloxacin Allergy Severe UNKNOWN Verified 11/01/17 08:46 codeine Allergy Severe Rash Verified 11/01/17 08:46 diclofenac Allergy Severe UNKNOWN Verified 11/01/17 08:46 dicyclomine Allergy Severe UNKNOWN Verified 11/01/17 08:46 doxycycline Allergy Severe UNKNOWN Verified 11/01/17 08:46 duloxetine Allergy Severe UNKNOWN Verified 11/01/17 08:46 etodolac Allergy Severe Rash Verified 11/01/17 08:46 fexofenadine Allergy Severe UNKNOWN Verified 11/01/17 08:46 flurbiprofen Allergy Severe Rash Verified 11/01/17 08:46 gabapentin Allergy Severe UNKNOWN Verified 11/01/17 08:46 ibuprofen Allergy Severe Rash Verified 11/01/17 08:46 indomethacin Allergy Severe Rash Verified 11/01/17 08:46 ketoprofen Allergy Severe Rash Verified 11/01/17 08:46 ketorolac Allergy Severe Rash Verified 11/01/17 08:46 levofloxacin Allergy Severe UNKNOWN Verified 11/01/17 08:46 meloxicam Allergy Severe UNKNOWN Verified 11/01/17 08:46 morphine Allergy Severe Rash Verified 11/01/17 08:46 naproxen Allergy Severe Rash Verified 11/01/17 08:46 oxaprozin Allergy Severe Rash Verified 11/01/17 08:46 penicillin G Allergy Severe Rash Verified 11/01/17 08:46 pentazocine Allergy Severe UNKNOWN Verified 11/01/17 08:46 pregabalin Allergy Severe INCREASE Verified 11/01/17 08:46 BLOOD PRESSURE rabeprazole Allergy Severe UNKNOWN Verified 11/01/17 08:46 risedronate sodium Allergy Severe UNKNOWN Verified 11/01/17 08:46 Sulfa (Sulfonamide Allergy Severe Rash Verified 11/01/17 08:46 Antibiotics) zolpidem Allergy Severe UNKNOWN Verified 11/01/17 08:46 Review of Systems All other systems reviewed negative except as stated in HPI Physical Exam Vital signs: Vital Signs 11/17/17 12:00 11/17/17 13:44 11/17/17 16:00 Temperature 97.6 F 98.4 F Pulse Rate 80 80 88 Respiratory Rate 14 16 16 Blood Pressure 180/82 H 138/85 150/87 H Pulse Oximetry 96 96 95 11/17/17 21:00 11/18/17 00:00 11/18/17 03:18 Temperature 99.1 F Pulse Rate 86 87 Respiratory Rate 18 15 Blood Pressure 151/67 H Pulse Oximetry 96 11/18/17 04:00 11/18/17 08:00 Temperature 98.3 F 98.0 F Pulse Rate 90 86 Respiratory Rate 18 17 Blood Pressure 153/64 H 148/70 H Pulse Oximetry 97 96 Intake & Output 11/17/17 11/18/17 11/18/17 18:59 06:59 18:59 Intake Total 264.4 / 264.4 130.4 / 130.4 110.4 / 110.4 Balance 264.4 / 264.4 130.4 / 130.4 110.4 / 110.4 Weight 46.3 kg Intake: IV 264.4 / 264.4 110.4 / 110.4 110.4 / 110.4 Zovirax Inj 520 MG In NS Inj 110.4 / 110.4 110.4 / 110.4 110.4 / 110.4 100 ML @ 110.4 mls/hr IV.SIG Q8H [facility] Rx#:[id number] Cerebyx Inj 200 MGPE In NS Inj 54 / 54 50 ML @ 216 mls/hr IV.SIG Q12H [facility] Rx#:[id number] Rocephin Inj 1,000 MG In NS Inj 100 / 100 100 ML @ 200 mls/hr IV.SIG Q24H [facility] Rx#:[id number] Oral 20 / 20 Other: # Voids 3 Date of Last Bowel Movement 11/17/17 11/17/17 # Bowel Movements 1 Narrative: GENERAL: in NAD, SKIN: Warm and dry. HEAD: Atraumatic. Normocephalic. EYES: Pupils equal and round. No scleral icterus. ENT: No nasal bleeding or discharge. Mucous membranes pink and moist. NECK: Trachea midline. No JVD. CARDIOVASCULAR: Regular rate and rhythm. RESPIRATORY: No accessory muscle use. Clear to auscultation. GASTROINTESTINAL: Abdomen soft, non-tender, nondistended. MUSCULOSKELETAL: Extremities without clubbing, cyanosis, or edema. NEUROLOGICAL: Alert, calm pleasant, oriented 2; Current president Morgan, primary care physician she states Dr. Bardales, able name simple objects follow motor request looks comfortable eomi, face sym, goff to gravity, no involuntary movements PSYCHIATRIC: Calm Objective Laboratory Results - last 24 hr 11/17/17 11/17/17 11/17/17 06:06 11:23 11:23 CSF Volume (1) 2.5 CSF Supernat Color (1) Clear CSF Gross Blood (1) Trace CSF WBC (1) CSF RBC (1) CSF Volume (2) 2.0 CSF Supernat Color (2) Clear CSF Gross Blood (2) Trace CSF Volume (3) 2.0 CSF Supernat Color (3) Clear CSF Gross Blood (3) Trace CSF Volume (4) 3.5 CSF Supernat Color (4) Clear CSF Gross Blood (4) 0 CSF WBC (4) 0 CSF RBC (4) 5 H CSF Neutrophils % 0 CSF Lymphocytes % 3 CSF Comment CSF Glucose CSF Total Protein CSF Herpes I DNA (PCR) CSF Herpes II DNA (PCR) CSF N.mening B/E.coli K1 Cancelled CSF N.meningitidis A/Y Cancelled Phenytoin 4.9 L Bacterial Ag Source Cancelled H.influenzae Type B Ag Cancelled N. meningitidis C/W 135 Cancelled Group B Strep Antigen Cancelled S. pneumoniae Antigen Cancelled 11/17/17 11/17/17 11/17/17 11:23 11:23 11:23 CSF Volume (1) CSF Supernat Color (1) CSF Gross Blood (1) CSF WBC (1) CSF RBC (1) CSF Volume (2) CSF Supernat Color (2) CSF Gross Blood (2) CSF Volume (3) CSF Supernat Color (3) CSF Gross Blood (3) CSF Volume (4) CSF Supernat Color (4) CSF Gross Blood (4) CSF WBC (4) CSF RBC (4) CSF Neutrophils % CSF Lymphocytes % CSF Comment CSF Glucose Cancelled 58 CSF Total Protein 33.3 CSF Herpes I DNA (PCR) Negative CSF Herpes II DNA (PCR) Negative CSF N.mening B/E.coli K1 CSF N.meningitidis A/Y Phenytoin Bacterial Ag Source H.influenzae Type B Ag N. meningitidis C/W 135 Group B Strep Antigen S. pneumoniae Antigen 11/17/17 11/18/17 11:23 06:20 CSF Volume (1) CSF Supernat Color (1) CSF Gross Blood (1) CSF WBC (1) 1 CSF RBC (1) 176 H CSF Volume (2) CSF Supernat Color (2) CSF Gross Blood (2) CSF Volume (3) CSF Supernat Color (3) CSF Gross Blood (3) CSF Volume (4) CSF Supernat Color (4) CSF Gross Blood (4) CSF WBC (4) CSF RBC (4) CSF Neutrophils % CSF Lymphocytes % CSF Comment CSF Glucose CSF Total Protein CSF Herpes I DNA (PCR) CSF Herpes II DNA (PCR) CSF N.mening B/E.coli K1 CSF N.meningitidis A/Y Phenytoin 6.6 L Bacterial Ag Source H.influenzae Type B Ag N. meningitidis C/W 135 Group B Strep Antigen S. pneumoniae Antigen Microbiology 11/17/17 11:23 Gram Stain - Final Lumbar Puncture CSF Culture - Preliminary No growth in 24 hours Review/Management - Diagnosis (1) Cognitive and behavioral changes Code(s): R41.89 - Other symptoms and signs involving cognitive functions and awareness; R46.89 - Other symptoms and signs involving appearance and behavior Status: Acute Current Visit: Yes (2) Urinary tract infection Code(s): N39.0 - Urinary tract infection, site not specified Status: Acute Current Visit: Yes (3) Hypertensive urgency Code(s): I16.0 - Hypertensive urgency Status: Resolved Current Visit: Yes (4) Metabolic encephalopathy Code(s): G93.41 - Metabolic encephalopathy Status: Acute Current Visit: Yes - Review/Management Plan: etiology; emerging dementia worsened by uti/htn versus seizure activity EEG demonstrating left temporal slowing; may be associated with dementia Apparently had seizures couple days ago CSF reviewed negative for infection at this point. Overall mental status and behavior improved since admission Probable underlying moderate dementia with new onset seizure activity recs Herpes PCR negative. DC IV acyclovir Dilantin p.o. increase to 130 mg p.o. 3 times daily Follow levels every few days Can be discharged from neurologic standpoint followed up in the outpatient setting Will require supervision No driving Discharge planning
[2017-11-18] MEDS: Phenytoin Sodium 100 MG Capsule PO SCH ×2 (13:38→18:36)
[2017-11-18] MEDS: Sod Chloride 0.9% Inj 1,000 ML IV.CONT SCH (13:57)
[2017-11-18 22:43] LABS: Enterovirus (PCR)Source CSF; Enterovirus RNA Qual (PCR) Negative (Negative)
[2017-11-19] MEDS: Nystatin 100,000 UNITS/GM Powder 15 GM Bottle TOPICAL SCH ×5 (00:12→20:29)
[2017-11-19] MEDS: Phenytoin Sodium 100 MG Capsule PO SCH ×3 (10:13→19:02)
[2017-11-19] MEDS: Lactobacillus Acidophilus/L. Spores Tablet PO SCH ×3 (10:14→19:01)
[2017-11-19] MEDS: Sertraline 100 MG Tablet PO SCH (10:16)
[2017-11-19] MEDS: amLODIPine 10 MG Tablet PO SCH (10:17)
--- NOTE | 2017-11-19 13:35 | P.PNNEU ---
Subjective Subjective Comments: no cp, no dyspnea, no ambriz, no focal weakness, no vision loss Active Medications: Active Medications Al Hydroxide/Mg Hydroxide (Milk Of Magnsara Liq) 30 ml PO Q12H PRN PRN Reason: Mild Constipation Amlodipine Besylate (Norvasc) 10 mg PO DAILY [facility] Last Admin: 11/19/17 10:17 Dose: 10 mg Aspirin (Aspirin Chew) 81 mg PO DAILY [facility] Last Admin: 11/19/17 10:13 Dose: 81 mg Clonidine HCl (Catapress-Tts 0.1 Mg Patch.7d) 1 patch T-DERMAL Q7D [facility] Last Admin: 11/15/17 12:07 Dose: 1 patch Enalaprilat (Vasotec Inj) 1.25 mg IV.PUSH Q6H PRN PRN Reason: SBP>160, DBP>90 Last Admin: 11/17/17 10:34 Dose: 1.25 mg Ceftriaxone Sodium 1,000 mg/ (Sodium Chloride) 100 mls @ 200 mls/hr IV.SIG Q24H [facility] Last Infusion: 11/18/17 13:39 Dose: Infused Sodium Chloride (Ns Inj) 1,000 mls @ 30 mls/hr IV.CONT .Q24H [facility] Last Admin: 11/18/17 13:57 Dose: Not Given Lactobacillus Acidophilus (Lactinex) 1 tab PO TID [facility] Last Admin: 11/19/17 10:14 Dose: 1 tab Lorazepam (Ativan Inj) 1 mg IV.PUSH Q15M PRN PRN Reason: SEIZURES Losartan Potassium (Cozaar) 100 mg PO DAILY [facility] Last Admin: 11/19/17 10:13 Dose: 100 mg Nystatin (Mycostatin Powder) 1 applicatio TOPICAL QID [facility] Last Admin: 11/19/17 10:17 Dose: 1 applicatio Ondansetron HCl (Zofran Inj) 4 mg IV.PUSH Q6H PRN PRN Reason: NAUSEA OR VOMITING Last Admin: 11/19/17 10:29 Dose: 4 mg Patch Removal (Remove Old Patch) 1 each T-DERMAL Q7D [facility] Phenytoin Sodium (Dilantin) 100 mg PO TID [facility] Last Admin: 11/19/17 10:13 Dose: 100 mg Phenytoin Sodium (Dilantin) 30 mg PO TID [facility] Last Admin: 11/19/17 10:14 Dose: 30 mg Potassium Chloride (K-Dur) 20 meq PO DAILY [facility] Last Admin: 11/19/17 10:14 Dose: 20 meq Pravastatin Sodium (Pravachol) 80 mg PO DAILY [facility] Last Admin: 11/19/17 10:13 Dose: 80 mg Sertraline HCl (Zoloft) 100 mg PO DAILY [facility] Last Admin: 11/19/17 10:16 Dose: 100 mg Sodium Chloride (Ns Flush) 2 ml IV.FLUSH BID [facility] Last Admin: 11/19/17 10:17 Dose: 2 ml Sodium Chloride (Ns Flush) 2 ml IV.FLUSH PRN PRN PRN Reason: FLUSH AFTER USING IV ACCESS Allergies/Adverse Reactions: Allergies Allergy/AdvReac Type Severity Reaction Status Date / Time acetaminophen Allergy Severe Rash Verified 11/01/17 08:46 ciprofloxacin Allergy Severe UNKNOWN Verified 11/01/17 08:46 codeine Allergy Severe Rash Verified 11/01/17 08:46 diclofenac Allergy Severe UNKNOWN Verified 11/01/17 08:46 dicyclomine Allergy Severe UNKNOWN Verified 11/01/17 08:46 doxycycline Allergy Severe UNKNOWN Verified 11/01/17 08:46 duloxetine Allergy Severe UNKNOWN Verified 11/01/17 08:46 etodolac Allergy Severe Rash Verified 11/01/17 08:46 fexofenadine Allergy Severe UNKNOWN Verified 11/01/17 08:46 flurbiprofen Allergy Severe Rash Verified 11/01/17 08:46 gabapentin Allergy Severe UNKNOWN Verified 11/01/17 08:46 ibuprofen Allergy Severe Rash Verified 11/01/17 08:46 indomethacin Allergy Severe Rash Verified 11/01/17 08:46 ketoprofen Allergy Severe Rash Verified 11/01/17 08:46 ketorolac Allergy Severe Rash Verified 11/01/17 08:46 levofloxacin Allergy Severe UNKNOWN Verified 11/01/17 08:46 meloxicam Allergy Severe UNKNOWN Verified 11/01/17 08:46 morphine Allergy Severe Rash Verified 11/01/17 08:46 naproxen Allergy Severe Rash Verified 11/01/17 08:46 oxaprozin Allergy Severe Rash Verified 11/01/17 08:46 penicillin G Allergy Severe Rash Verified 11/01/17 08:46 pentazocine Allergy Severe UNKNOWN Verified 11/01/17 08:46 pregabalin Allergy Severe INCREASE Verified 11/01/17 08:46 BLOOD PRESSURE rabeprazole Allergy Severe UNKNOWN Verified 11/01/17 08:46 risedronate sodium Allergy Severe UNKNOWN Verified 11/01/17 08:46 Sulfa (Sulfonamide Allergy Severe Rash Verified 11/01/17 08:46 Antibiotics) zolpidem Allergy Severe UNKNOWN Verified 11/01/17 08:46 Review of Systems All other systems reviewed negative except as stated in HPI Physical Exam Vital signs: Vital Signs 11/18/17 16:00 11/18/17 20:00 11/19/17 00:00 Temperature 98.6 F 98.7 F 98.3 F Pulse Rate 90 92 H 92 H Respiratory Rate 17 16 16 Blood Pressure 115/56 L 156/69 H 175/61 H Pulse Oximetry 95 95 96 11/19/17 04:00 11/19/17 08:00 11/19/17 12:00 Temperature 98.3 F 97.7 F 97.6 F Pulse Rate 80 93 H 79 Respiratory Rate 18 17 18 Blood Pressure 150/83 H 162/70 H 150/70 H Pulse Oximetry 95 97 96 Intake & Output 11/18/17 11/19/17 11/19/17 18:59 06:59 18:59 Intake Total 1710.4 / 1710.4 240 / 240 Balance 1710.4 / 1710.4 240 / 240 Weight 45.9 kg Intake: IV 210.4 / 210.4 Zovirax Inj 520 MG In NS Inj 110.4 / 110.4 100 ML @ 110.4 mls/hr IV.SIG Q8H [facility] Rx#:[id number] Rocephin Inj 1,000 MG In NS Inj 100 / 100 100 ML @ 200 mls/hr IV.SIG Q24H [facility] Rx#:[id number] Oral 1500 / 1500 240 / 240 Other: # Voids 4 # Urine Diapers 3 Date of Last Bowel Movement 11/18/17 11/18/17 11/19/17 # Bowel Movements 1 Narrative: GENERAL: in NAD, SKIN: Warm and dry. HEAD: Atraumatic. Normocephalic. EYES: Pupils equal and round. No scleral icterus. ENT: No nasal bleeding or discharge. Mucous membranes pink and moist. NECK: Trachea midline. No JVD. CARDIOVASCULAR: Regular rate and rhythm. RESPIRATORY: No accessory muscle use. Clear to auscultation. GASTROINTESTINAL: Abdomen soft, non-tender, nondistended. MUSCULOSKELETAL: Extremities without clubbing, cyanosis, or edema. NEUROLOGICAL: Awake alert, pleasant, oriented 1-2, states she is waiting for her son to arrive, articulate, able name simple objects follow motor request looks comfortable eomi, face sym, goff to gravity, no involuntary movements PSYCHIATRIC: co-operative - Constitutional no acute distress - Routine HEENT Exam Head: Present: normocephalic Objective Laboratory Results - last 24 hr 11/17/17 11/17/17 11/19/17 11:23 11:23 05:00 CSF Treponema Ab (FTA) Non-reactive Phenytoin 10.6 Enterovirus Source Csf Enterovirus RNA (PCR) Negative Microbiology 11/17/17 11:23 Gram Stain - Final Lumbar Puncture CSF Culture - Preliminary No growth in 48 hours Review/Management - Diagnosis (1) Cognitive and behavioral changes Code(s): R41.89 - Other symptoms and signs involving cognitive functions and awareness; R46.89 - Other symptoms and signs involving appearance and behavior Status: Acute Current Visit: Yes (2) Urinary tract infection Code(s): N39.0 - Urinary tract infection, site not specified Status: Acute Current Visit: Yes (3) Hypertensive urgency Code(s): I16.0 - Hypertensive urgency Status: Resolved Current Visit: Yes (4) Metabolic encephalopathy Code(s): G93.41 - Metabolic encephalopathy Status: Acute Current Visit: Yes - Review/Management Plan: etiology; emerging dementia worsened by uti/htn versus seizure activity EEG demonstrating left temporal slowing; may be associated with dementia Apparently had seizures couple days ago CSF reviewed negative for infection at this point. Overall mental status and behavior improved since admission Probable underlying moderate dementia with new onset seizure activity recs Dilantin level in range Can be discharged from neurologic standpoint followed up in the outpatient setting Will require supervision No driving Discharge planning
--- NOTE | 2017-11-19 13:38 | P.PN ---
Subjective Interval history: In nad The patient is seen the bed she is pleasantly confused and appears paranoid. Says she is not eating breakfast because does not taste [place] and she thinks the breakfast is poisoned. She denies any chest pain or shortness of breath at this time. She is not willing to follow commands however she is moving arms and legs spontaneously. She denies having any headaches. No change in vision. Physical Exam Vital signs: Vital Signs 11/18/17 16:00 11/18/17 20:00 11/19/17 00:00 Temperature 98.6 F 98.7 F 98.3 F Pulse Rate 90 92 H 92 H Respiratory Rate 17 16 16 Blood Pressure 115/56 L 156/69 H 175/61 H Pulse Oximetry 95 95 96 11/19/17 04:00 11/19/17 08:00 11/19/17 12:00 Temperature 98.3 F 97.7 F 97.6 F Pulse Rate 80 93 H 79 Respiratory Rate 18 17 18 Blood Pressure 150/83 H 162/70 H 150/70 H Pulse Oximetry 95 97 96 Intake & Output 11/18/17 11/19/17 11/19/17 18:59 06:59 18:59 Intake Total 1710.4 / 1710.4 240 / 240 Balance 1710.4 / 1710.4 240 / 240 Weight 45.9 kg Intake: IV 210.4 / 210.4 Zovirax Inj 520 MG In NS Inj 110.4 / 110.4 100 ML @ 110.4 mls/hr IV.SIG Q8H KI Rx#:[id number] Rocephin Inj 1,000 MG In NS Inj 100 / 100 100 ML @ 200 mls/hr IV.SIG Q24H KI Rx#:[id number] Oral 1500 / 1500 240 / 240 Other: # Voids 4 # Urine Diapers 3 Date of Last Bowel Movement 11/18/17 11/18/17 11/19/17 # Bowel Movements 1 Narrative: GENERAL: Pleasant elderly female, in NAD CARDIOVASCULAR: Regular rate and rhythm. RESPIRATORY: No accessory muscle use. Clear to auscultation. GASTROINTESTINAL: Abdomen soft, non-tender, nondistended. MUSCULOSKELETAL: Extremities without clubbing, cyanosis, or edema. NEUROLOGICAL: Awake and alert oriented x 3. Follows commands. No focal deficit. PSYCHIATRIC: co-operative, alert and awake. Results - Labs CBC & Chem 7: 11/17/17 06:06 11/17/17 06:06 Laboratory Results - last 24 hr 11/17/17 11/17/17 11/19/17 11:23 11:23 05:00 CSF Treponema Ab (FTA) Non-reactive Phenytoin 10.6 Enterovirus Source Csf Enterovirus RNA (PCR) Negative Microbiology 11/17/17 11:23 Lumbar Puncture Gram Stain - Final 11/17/17 11:23 Lumbar Puncture CSF Culture - Preliminary No growth in 48 hours Assessment and Plan - Assessment (1) Urinary tract infection Code(s): N39.0 - Urinary tract infection, site not specified Status: Acute (2) Hypertensive urgency Code(s): I16.0 - Hypertensive urgency Status: Resolved (3) Metabolic encephalopathy Code(s): G93.41 - Metabolic encephalopathy Status: Acute - Plan 82-year-old female with dementia, hypertension, and hyperlipidemia admitted secondary to urinary tract infection with encephalopathy and hypertensive urgency. UTI UA on admission notable for positive nitrates and leukocyte esterase Culture growing Enterobacter sensitive to cephalosporins Had been transitioned to PO Keflex but now refusing meds so will restart Rocephin Metabolic encephalopathy. 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 CSF no signs of infection, ff up results - Monitor dilantin level . Dilantin increased to 130 mg per neurology. Hypertension, improving BP still mildly elevated Continue losartan and Norvasc Continue monitor Refusing PO now. 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
--- NOTE | 2017-11-19 15:55 | P.DS ---
Date of admission: 11/09/17 12:43 Primary care physician: UNKNOWN Brief History from admission: Mrs. Park is an 82 year old female. She is brought in today due to progressive confussion. Sepsis is not present, but she has a UTI, which is likely causing a metabolic encephalopathy. Additionally, she has HTN Urgency. This might represet missed Losartan or reactivity with UTI. Patient is confused and not able to contribute to history. DS: Diagnosis - Discharge Diagnosis (1) Urinary tract infection Status: Acute (2) Hypertensive urgency Status: Resolved (3) Metabolic encephalopathy Status: Acute DS: Medications - Discharge Medications Prescriptions: amlodipine [Norvasc] 10 mg PO DAILY #30 tab nystatin [Nystop] 1 applicatio TOPICAL QID 7 Days g phenytoin sodium extended 100 mg PO TID #90 cap phenytoin sodium extended [Dilantin] 30 mg PO TID #90 cap DS: Summary Hospital Course: 82-year-old female with dementia, hypertension, and hyperlipidemia admitted secondary to urinary tract infection with encephalopathy and hypertensive urgency. UTI UA on admission notable for positive nitrates and leukocyte esterase Culture growing Enterobacter sensitive to cephalosporins Had been transitioned to PO Keflex but now refusing meds so will restart Rocephin Metabolic encephalopathy. 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 CSF no signs of infection, ff up results - Monitor dilantin level . Dilantin increased to 130 mg per neurology. Hypertension, improving BP still mildly elevated Continue losartan and Norvasc Continue monitor Refusing PO now. Cont Vasotec IV PRN -Cont clonidine patch Seizure on 11/15 -Loaded with Keppra -Dr. Bravo recommends increasing Dilantin 130 mg p.o. 3 times daily -MRI reviewed and shows no acute abnormality -seizure precautions -Ativan if needed Hyperlipidemia -Continue statin Chronic hyponatremia Stable Likely secondary to SSRI Hypokalemia Replete with KCl in IV fluids -Encourage p.o. intake. 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 Cleared by neurology for discharge. Plan to discharge to shelter facility. Discharge in stable condition to follow with PCP and consultants as outpatient. - Time Spent with Patient Total time spent providing and/or coordinating discharge services: Greater than 30 minutes - Quality: VTE Deep Vein Thrombosis/Pulmonary Embolism Present on Admission: No Exam Vital signs: Vital Signs 11/18/17 16:00 11/18/17 20:00 11/19/17 00:00 Temperature 98.6 F 98.7 F 98.3 F Pulse Rate 90 92 H 92 H Respiratory Rate 17 16 16 Blood Pressure 115/56 L 156/69 H 175/61 H Pulse Oximetry 95 95 96 11/19/17 04:00 11/19/17 08:00 11/19/17 12:00 Temperature 98.3 F 97.7 F 97.6 F Pulse Rate 80 93 H 79 Respiratory Rate 18 17 18 Blood Pressure 150/83 H 162/70 H 150/70 H Pulse Oximetry 95 97 96 Intake & Output 11/18/17 11/19/17 11/19/17 18:59 06:59 18:59 Intake Total 1710.4 / 1710.4 240 / 240 Balance 1710.4 / 1710.4 240 / 240 Weight 45.9 kg Intake: IV 210.4 / 210.4 Zovirax Inj 520 MG In NS Inj 110.4 / 110.4 100 ML @ 110.4 mls/hr IV.SIG Q8H KI Rx#:[id number] Rocephin Inj 1,000 MG In NS Inj 100 / 100 100 ML @ 200 mls/hr IV.SIG Q24H KI Rx#:[id number] Oral 1500 / 1500 240 / 240 Other: # Voids 4 # Urine Diapers 3 Date of Last Bowel Movement 11/18/17 11/18/17 11/19/17 # Bowel Movements 1 Narrative: GENERAL: Pleasant elderly female, in NAD CARDIOVASCULAR: Regular rate and rhythm. RESPIRATORY: No accessory muscle use. Clear to auscultation. GASTROINTESTINAL: Abdomen soft, non-tender, nondistended. MUSCULOSKELETAL: Extremities without clubbing, cyanosis, or edema. NEUROLOGICAL: Awake and alert oriented x 3. Follows commands. No focal deficit. PSYCHIATRIC: co-operative, alert and awake. Results Procedures completed during hospitalization: none Labs on day of discharge: Labs from last 24 hours 11/19/17 11/17/17 11/17/17 05:00 11:23 11:23 CSF Treponema Ab (FTA) Non-reactive Phenytoin 10.6 Enterovirus Source Csf Enterovirus RNA (PCR) Negative Preliminary micro results at discharge 11/17/17 11:23 CSF Culture - Preliminary Lumbar Puncture No growth in 48 hours - Impressions ITS Impressions Head CT 11/09/17 10:13 CONCLUSION: No acute intracranial injury . Head MRI 11/15/17 07:05 CONCLUSION: 1. Cerebral atrophy. 2. Motion artifact without definite acute intracranial abnormality. Lumbar Puncture Fluoroscopy 11/17/17 21:18 CONCLUSION: 1. Uncomplicated fluoroscopically guided lumbar puncture. Discharge Plan - Discharge Disposition Patient Disposition: 03 Discharge to SNF - Discharge Condition Condition: Stable - Discharge Order Discharge Orders: Discharge Order (Routine); Ordered 11/20/17 Ordered By: Xiomy Serrano - Discharge Details Anticipated Discharge Date: 11/20/17 - Physicians Team Primary Care Provider: UNKNOWN, Attending Provider: Xiomy Serrano Other Providers: [facility] ; Dominik Woo MD ; John Bravo MD
[2017-11-19] MEDS: Sod Chloride 0.9% Inj 1,000 ML IV.CONT SCH (19:04)
[2017-11-20] MEDS: Phenytoin Sodium 100 MG Capsule PO SCH ×3 (09:38→17:20)
[2017-11-20] MEDS: amLODIPine 10 MG Tablet PO SCH (09:38)
[2017-11-20] MEDS: Lactobacillus Acidophilus/L. Spores Tablet PO SCH ×3 (09:39→17:20)
[2017-11-20] MEDS: Nystatin 100,000 UNITS/GM Powder 15 GM Bottle TOPICAL SCH ×4 (09:40→20:17)
[2017-11-20] MEDS: Sertraline 100 MG Tablet PO SCH (09:41)
--- NOTE | 2017-11-20 10:27 | P.PNNEU ---
Subjective Subjective Comments: No cp, no dyspnea, no ambriz, no focal weakness, no vision loss States she wants her morning medications, Cozaar before she has breakfast Active Medications: Active Medications Al Hydroxide/Mg Hydroxide (Milk Of Robert Liq) 30 ml PO Q12H PRN PRN Reason: Mild Constipation Amlodipine Besylate (Norvasc) 10 mg PO DAILY [facility] Last Admin: 11/20/17 09:38 Dose: 10 mg Aspirin (Aspirin Chew) 81 mg PO DAILY [facility] Last Admin: 11/20/17 09:38 Dose: 81 mg Clonidine HCl (Catapress-Tts 0.1 Mg Patch.7d) 1 patch T-DERMAL Q7D [facility] Last Admin: 11/15/17 12:07 Dose: 1 patch Enalaprilat (Vasotec Inj) 1.25 mg IV.PUSH Q6H PRN PRN Reason: SBP>160, DBP>90 Last Admin: 11/20/17 00:08 Dose: 1.25 mg Ceftriaxone Sodium 1,000 mg/ (Sodium Chloride) 100 mls @ 200 mls/hr IV.SIG Q24H [facility] Last Infusion: 11/19/17 15:04 Dose: Infused Sodium Chloride (Ns Inj) 1,000 mls @ 30 mls/hr IV.CONT .Q24H [facility] Last Admin: 11/19/17 19:04 Dose: Not Given Lactobacillus Acidophilus (Lactinex) 1 tab PO TID [facility] Last Admin: 11/20/17 09:39 Dose: 1 tab Lorazepam (Ativan Inj) 1 mg IV.PUSH Q15M PRN PRN Reason: SEIZURES Losartan Potassium (Cozaar) 100 mg PO DAILY [facility] Last Admin: 11/20/17 09:39 Dose: 100 mg Nystatin (Mycostatin Powder) 1 applicatio TOPICAL QID [facility] Last Admin: 11/20/17 09:40 Dose: 1 applicatio Ondansetron HCl (Zofran Inj) 4 mg IV.PUSH Q6H PRN PRN Reason: NAUSEA OR VOMITING Last Admin: 11/19/17 10:29 Dose: 4 mg Patch Removal (Remove Old Patch) 1 each T-DERMAL Q7D [facility] Phenytoin Sodium (Dilantin) 100 mg PO TID [facility] Last Admin: 11/20/17 09:38 Dose: 100 mg Phenytoin Sodium (Dilantin) 30 mg PO TID [facility] Last Admin: 11/20/17 09:39 Dose: 30 mg Potassium Chloride (K-Dur) 20 meq PO DAILY [facility] Last Admin: 11/20/17 09:39 Dose: 20 meq Pravastatin Sodium (Pravachol) 80 mg PO DAILY [facility] Last Admin: 11/20/17 09:39 Dose: 80 mg Sertraline HCl (Zoloft) 100 mg PO DAILY [facility] Last Admin: 11/20/17 09:41 Dose: 100 mg Sodium Chloride (Ns Flush) 2 ml IV.FLUSH BID [facility] Last Admin: 11/20/17 09:40 Dose: 2 ml Sodium Chloride (Ns Flush) 2 ml IV.FLUSH PRN PRN PRN Reason: FLUSH AFTER USING IV ACCESS Allergies/Adverse Reactions: Allergies Allergy/AdvReac Type Severity Reaction Status Date / Time acetaminophen Allergy Severe Rash Verified 11/01/17 08:46 ciprofloxacin Allergy Severe UNKNOWN Verified 11/01/17 08:46 codeine Allergy Severe Rash Verified 11/01/17 08:46 diclofenac Allergy Severe UNKNOWN Verified 11/01/17 08:46 dicyclomine Allergy Severe UNKNOWN Verified 11/01/17 08:46 doxycycline Allergy Severe UNKNOWN Verified 11/01/17 08:46 duloxetine Allergy Severe UNKNOWN Verified 11/01/17 08:46 etodolac Allergy Severe Rash Verified 11/01/17 08:46 fexofenadine Allergy Severe UNKNOWN Verified 11/01/17 08:46 flurbiprofen Allergy Severe Rash Verified 11/01/17 08:46 gabapentin Allergy Severe UNKNOWN Verified 11/01/17 08:46 ibuprofen Allergy Severe Rash Verified 11/01/17 08:46 indomethacin Allergy Severe Rash Verified 11/01/17 08:46 ketoprofen Allergy Severe Rash Verified 11/01/17 08:46 ketorolac Allergy Severe Rash Verified 11/01/17 08:46 levofloxacin Allergy Severe UNKNOWN Verified 11/01/17 08:46 meloxicam Allergy Severe UNKNOWN Verified 11/01/17 08:46 morphine Allergy Severe Rash Verified 11/01/17 08:46 naproxen Allergy Severe Rash Verified 11/01/17 08:46 oxaprozin Allergy Severe Rash Verified 11/01/17 08:46 penicillin G Allergy Severe Rash Verified 11/01/17 08:46 pentazocine Allergy Severe UNKNOWN Verified 11/01/17 08:46 pregabalin Allergy Severe INCREASE Verified 11/01/17 08:46 BLOOD PRESSURE rabeprazole Allergy Severe UNKNOWN Verified 11/01/17 08:46 risedronate sodium Allergy Severe UNKNOWN Verified 11/01/17 08:46 Sulfa (Sulfonamide Allergy Severe Rash Verified 11/01/17 08:46 Antibiotics) zolpidem Allergy Severe UNKNOWN Verified 11/01/17 08:46 Review of Systems All other systems reviewed negative except as stated in HPI Physical Exam Vital signs: Vital Signs 11/19/17 12:00 11/19/17 16:00 11/19/17 20:00 Temperature 97.6 F 97.7 F 98.3 F Pulse Rate 79 82 89 Respiratory Rate 18 18 18 Blood Pressure 150/70 H 159/61 H 166/74 H Pulse Oximetry 96 97 93 L 11/20/17 00:00 11/20/17 04:00 11/20/17 05:37 Temperature 97.8 F 97.8 F Pulse Rate 78 82 Respiratory Rate 18 17 16 Blood Pressure 167/73 H 160/70 H Pulse Oximetry 96 97 11/20/17 08:00 Temperature 98.2 F Pulse Rate 82 Respiratory Rate 16 Blood Pressure 144/51 H Pulse Oximetry 95 Intake & Output 11/19/17 11/20/17 11/20/17 18:59 06:59 18:59 Intake Total 2500 / 2500 Balance 2500 / 2500 Intake: IV 100 / 100 Rocephin Inj 1,000 MG In NS Inj 100 / 100 100 ML @ 200 mls/hr IV.SIG Q24H KI Rx#:[id number] Oral 2400 / 2400 Other: # Voids 9 Date of Last Bowel Movement 11/19/17 11/19/17 11/19/17 # Bowel Movements 3 Narrative: GENERAL: in NAD, SKIN: Warm and dry. HEAD: Atraumatic. Normocephalic. EYES: Pupils equal and round. No scleral icterus. ENT: No nasal bleeding or discharge. Mucous membranes pink and moist. NECK: Trachea midline. No JVD. CARDIOVASCULAR: Regular rate and rhythm. RESPIRATORY: No accessory muscle use. Clear to auscultation. GASTROINTESTINAL: Abdomen soft, non-tender, nondistended. MUSCULOSKELETAL: Extremities without clubbing, cyanosis, or edema. NEUROLOGICAL: Awake alert, pleasant, oriented 2, recognizes me from yesterday articulate, able name simple objects follow motor request looks comfortable eomi , face sym, goff to gravity, no involuntary movements PSYCHIATRIC: co-operative - Constitutional no acute distress - Routine HEENT Exam Head: Present: normocephalic Objective Laboratory Results - last 24 hr 11/17/17 11:23 CSF Lyme Disease DNA Not detected Microbiology 11/17/17 11:23 Gram Stain - Final Lumbar Puncture CSF Culture - Final No growth in 72 hours Review/Management - Diagnosis (1) Cognitive and behavioral changes Code(s): R41.89 - Other symptoms and signs involving cognitive functions and awareness; R46.89 - Other symptoms and signs involving appearance and behavior Status: Acute Current Visit: Yes (2) Urinary tract infection Code(s): N39.0 - Urinary tract infection, site not specified Status: Acute Current Visit: Yes (3) Hypertensive urgency Code(s): I16.0 - Hypertensive urgency Status: Resolved Current Visit: Yes (4) Metabolic encephalopathy Code(s): G93.41 - Metabolic encephalopathy Status: Acute Current Visit: Yes - Review/Management Plan: etiology; emerging dementia worsened by uti/htn versus seizure activity EEG demonstrating left temporal slowing; may be associated with dementia Apparently had seizures couple days ago CSF reviewed negative for infection at this point. Overall mental status and behavior improved since admission Probable underlying moderate dementia with new onset seizure activity recs Dilantin pending Patient doing well cognition improved as well as level of alertness Continue Dilantin Can be discharged from neurologic standpoint followed up in the outpatient setting Will require supervision No driving Discharge planning
[2017-11-20 12:25] LABS: RBC on Tube 1 176 /mm3
[2017-11-20 12:27] LABS: Lymphocytes, CSF 100 %
--- NOTE | 2017-11-20 17:18 | P.PNPAL ---
Reason for Visit Reason for visit: a. To assist with evaluation and management of symptoms including: Confusion, pain b. To assist medical decision maker(s) with: better understanding of current medical conditions; weighing benefits/burdens of medical treatment options; making medical treatment decisions. Subjective Subjective/Interval History: Patient seen today to follow-up on symptom management of confusion and pain and assist with goals of medical treatment. Patient's agitation is improving however she remains confused. She is disoriented to time, place, purpose, however oriented to self today. Her disorientation is constant, mild to moderate, without exacerbating or relieving factors. She does know her children's names, Jay and Phyllis, however states she has twin sons both named Ed. She is more pleasant today, without the previously seen irritability. She claims she has pain "all over". She has multiple bruises on her legs from frequent falls at home which are tender to palpation. She states her hands are painful. She is unable to comprehend the pain scale so cannot quantify or qualify her pain. By nonverbal pain scale she grimaces with palpation of hands and legs. . Family/Friend Interactions: No family is at bedside today. Case management is attempting to locate decision -makers. Per [place] statutes, without the presentation of advanced directives to include power of workers compensation attorney or healthcare surrogate forms, statute dictates that it would be the majority of the adult children who are the proxy decision makers, as she is and not capacitated to make her own decisions. The patient has 3 children, 1 of whom, Ed, has been estranged and we have not able been to find contact information for him. Family states they also do not have contact information for him. So by [place] statutes, the proxy decision makers would be patient's children, Jay Park and Phyllis Albino. Advance Directives Living Will: Never completed Health Care Surrogate: Never completed Durable Power of Irrigator Overhead: Never completed Objective Vital Signs: Vital Signs 11/19/17 20:00 11/20/17 00:00 11/20/17 04:00 Temperature 98.3 F 97.8 F 97.8 F Pulse Rate 89 78 82 Respiratory Rate 18 18 17 Blood Pressure 166/74 H 167/73 H 160/70 H Pulse Oximetry 93 L 96 97 11/20/17 05:37 11/20/17 08:00 11/20/17 12:00 Temperature 98.2 F 97.8 F Pulse Rate 82 80 Respiratory Rate 16 16 16 Blood Pressure 144/51 H 101/56 L Pulse Oximetry 95 94 L Intake & Output 11/19/17 11/20/17 11/20/17 18:59 06:59 18:59 Intake Total 2500 / 2500 Balance 2500 / 2500 Intake: IV 100 / 100 Rocephin Inj 1,000 MG In NS Inj 100 / 100 100 ML @ 200 mls/hr IV.SIG Q24H [facility] Rx#:[id number] Oral 2400 / 2400 Other: # Voids 9 Date of Last Bowel Movement 11/19/17 11/19/17 11/19/17 # Bowel Movements 3 Physical Exam: CONSTITUTIONAL/GENERAL: This is a thin, elderly female sitting up in bed in no acute distress. TUBES/LINES/DRAINS: PIV SKIN: No jaundice, rashes, or lesions. Ecchymoses on upper extremities. Bruises on lower extremities. No wounds seen anteriorly. Skin temperature appropriate. Not diaphoretic. CARDIOVASCULAR: Regular rate and rhythm without murmurs, gallops, or rubs. No JVD. Peripheral pulses symmetric. RESPIRATORY/CHEST: Symmetric, unlabored respirations. Clear to auscultation. Breath sounds equal bilaterally. No wheezes, rales, or rhonchi. GASTROINTESTINAL: Abdomen soft, nondistended. Bowel sounds present. MUSCULOSKELETAL: Extremities without clubbing, cyanosis, or edema. No joint tenderness or effusion noted. No mottling or clubbing. NEUROLOGICAL: Awake, oriented to self, pleasantly confused, moves all extremities to command. PSYCHIATRIC: confused, cooperative. . Diagnostic Tests Laboratory: Laboratory Results - last 72 hr 11/17/17 11/17/17 11/17/17 06:06 11:23 11:23 CSF WBC (1) 1 CSF RBC (1) 176 H CSF Lymphocytes % 100 Ser Oligoclonal Bands CSF Oligoclonal Bands CSF Olig Protein Interp CSF Treponema Ab (FTA) CSF Lyme Disease DNA CSF Herpes I DNA (PCR) CSF Herpes II DNA (PCR) Phenytoin 4.9 L Enterovirus Source Csf Enterovirus RNA (PCR) Negative 11/17/17 11/17/17 11/17/17 11:23 11:23 11:23 CSF WBC (1) CSF RBC (1) CSF Lymphocytes % Ser Oligoclonal Bands 4 CSF Oligoclonal Bands 4 CSF Olig Protein Interp 0 CSF Treponema Ab (FTA) CSF Lyme Disease DNA Not detected CSF Herpes I DNA (PCR) Negative CSF Herpes II DNA (PCR) Negative Phenytoin Enterovirus Source Enterovirus RNA (PCR) 11/17/17 11/18/17 11/19/17 11:23 06:20 05:00 CSF WBC (1) CSF RBC (1) CSF Lymphocytes % Ser Oligoclonal Bands CSF Oligoclonal Bands CSF Olig Protein Interp CSF Treponema Ab (FTA) Non-reactive CSF Lyme Disease DNA CSF Herpes I DNA (PCR) CSF Herpes II DNA (PCR) Phenytoin 6.6 L 10.6 Enterovirus Source Enterovirus RNA (PCR) Result Diagrams: 11/17/17 06:06 11/17/17 06:06 Microbiology: Microbiology 11/17/17 11:23 Gram Stain - Final Lumbar Puncture CSF Culture - Final No growth in 72 hours Imaging: Head CT 11/09/17 10:13 CONCLUSION: No acute intracranial injury . Head MRI 11/15/17 07:05 CONCLUSION: 1. Cerebral atrophy. 2. Motion artifact without definite acute intracranial abnormality. Lumbar Puncture Fluoroscopy 11/17/17 21:18 CONCLUSION: 1. Uncomplicated fluoroscopically guided lumbar puncture. Procedures: 11/17: Lumbar puncture. . 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 She was and had 4 children with her , moving to [place] in 1985. Her earlier this year and 1 of her daughters was killed previously. She has 1 daughter who lives locally, lives with her son Jay and has 1 son, Ed, last known to be in [facility], estranged from the family. Spiritual: She is of the [employer] erendira. Legal: Pending receipt of POA. Ethical issues impacting care: None noted. . Important Contacts: Son: Jay (cell), (home) Daughter Phyllis Posada Son: Ed whereabouts unknown, last known [place], [place]. No contact number available. . Prognosis: Her prognosis is guarded. She is having frequent falls, recurrent UTIs and is steadily declining. She does have some underlying but undiagnosed dementia as her primary care provider retired and she does not have a physician at this time. She is of advanced age and worsening mental status. She is at elevated risk for continued complications, readmissions and decline. . Code Status: No Code DNR Plan: PLAN: Legal decision maker: At this time the patient is not capacitated for decision-making and it is uncertain whether she will ever regain capacity. Per [place] statutes, without the presentation of advanced directives to include power of workers compensation attorney or healthcare surrogate forms, the statute dictates that the majority of the adult children would be proxy decision makers, as she is and not capacitated to make her own decisions. The patient has 3 children, 1 of whom, Ed, has been estranged and we have been unable to find contact information for him. So by [place] statutes, the proxy decision makers would be patient's children, Jay Dumontzackery and Phyllis Posada. Goals: Aggressive short of no code. CODE STATUS: DO NOT RESUSCITATE SYMPTOMS: * Confusion: She remains confused today, possibly multifactorial to include UTI , seizures, baseline dementia. 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 She appears completely disoriented to her current situation. Per the family she does have baseline dementia but may have some delirium secondary to hospitalization. She is in a well lit room in front of the nurses station for close monitoring. Per family, she is more disoriented than her baseline. * Pain: She complains of generalized pain "all over". This is likely multifactorial to include bedbound status, frequent falls with multiple bruises , invasive lines, recent seizures. At this time, there is no analgesics and her medication list. Would recommend the addition of Tylenol and/or ibuprofen for mild/moderate pain. Palliative care will continue to follow the patient during hospital course as condition evolves, to assist patient/decision-maker with understanding of their medical conditions, weighing benefits/burdens of treatment options, for clarification of goals of treatment. Additionally will assist with any symptoms of palliative concern. . Attestation Attestation: To help prompt me to consider important information that might be impacting today's encounter and assessment, information from prior notes written by myself or my colleagues may have been "brought forward" into today's note. My signature on this note, however, is an attestation that I personally performed the exam, history, and/or decision-making noted today, and, unless otherwise indicated, the interactions with patient, family, and staff as well as the review of records all occurred today. I also attest that the listed assessment and stated plan reflect my best clinical judgment today based on the combination of historical information, prior notes, and today's exam/ interactions. When time spent is documented, it refers only to time spent today by the signer, or if indicated, combined time spent today by collaborating physician/nurse practitioner. .
[2017-11-20] MEDS: Sod Chloride 0.9% Inj 1,000 ML IV.CONT SCH (17:20)
--- NOTE | 2017-11-20 17:20 | P.PN ---
Subjective Interval history: The patient is at the margin of the bed. Physical therapy at bedside trying and were working with with the patient. Patient appears to not acute distress at this time. Denies any chest pain or shortness of breath. No nausea vomiting or diarrhea constipation. No seizures. More awake and alert. Still present pleasantly confused. Physical Exam Vital signs: Vital Signs 11/19/17 20:00 11/20/17 00:00 11/20/17 04:00 Temperature 98.3 F 97.8 F 97.8 F Pulse Rate 89 78 82 Respiratory Rate 18 18 17 Blood Pressure 166/74 H 167/73 H 160/70 H Pulse Oximetry 93 L 96 97 11/20/17 05:37 11/20/17 08:00 11/20/17 12:00 Temperature 98.2 F 97.8 F Pulse Rate 82 80 Respiratory Rate 16 16 16 Blood Pressure 144/51 H 101/56 L Pulse Oximetry 95 94 L Intake & Output 11/19/17 11/20/17 11/20/17 18:59 06:59 18:59 Intake Total 2500 / 2500 Balance 2500 / 2500 Intake: IV 100 / 100 Rocephin Inj 1,000 MG In NS Inj 100 / 100 100 ML @ 200 mls/hr IV.SIG Q24H [facility] Rx#:[id number] Oral 2400 / 2400 Other: # Voids 9 Date of Last Bowel Movement 11/19/17 11/19/17 11/19/17 # Bowel Movements 3 Narrative: GENERAL: Pleasant elderly female, in NAD CARDIOVASCULAR: Regular rate and rhythm. RESPIRATORY: No accessory muscle use. Clear to auscultation. GASTROINTESTINAL: Abdomen soft, non-tender, nondistended. MUSCULOSKELETAL: Extremities without clubbing, cyanosis, or edema. NEUROLOGICAL: Awake and alert oriented x 3. Follows commands. No focal deficit. PSYCHIATRIC: co-operative, alert and awake. Results - Labs CBC & Chem 7: 11/17/17 06:06 11/17/17 06:06 Laboratory Results - last 24 hr 11/17/17 11/17/17 11/17/17 11:23 11:23 11:23 CSF WBC (1) 1 CSF RBC (1) 176 H CSF Lymphocytes % 100 Ser Oligoclonal Bands 4 CSF Oligoclonal Bands 4 CSF Olig Protein Interp 0 CSF Lyme Disease DNA Not detected Microbiology 09/21/18 11:23 Lumbar Puncture Gram Stain - Final 11/17/17 11:23 Lumbar Puncture CSF Culture - Final No growth in 72 hours Assessment and Plan - Assessment (1) Urinary tract infection Code(s): N39.0 - Urinary tract infection, site not specified Status: Acute (2) Hypertensive urgency Code(s): I16.0 - Hypertensive urgency Status: Resolved (3) Metabolic encephalopathy Code(s): G93.41 - Metabolic encephalopathy Status: Acute - Plan 82-year-old female with dementia, hypertension, and hyperlipidemia admitted secondary to urinary tract infection with encephalopathy and hypertensive urgency. UTI UA on admission notable for positive nitrates and leukocyte esterase Culture growing Enterobacter sensitive to cephalosporins Had been transitioned to PO Keflex but now refusing meds so will restart Rocephin Metabolic encephalopathy. 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 CSF no signs of infection, ff up results - Monitor dilantin level . Dilantin increased to 130 mg per neurology. Hypertension, improving BP still mildly elevated Continue losartan and Norvasc Continue monitor Refusing PO now. Cont Vasotec IV PRN -Cont clonidine patch Seizure on 11/15 -Loaded with Keppra -Dr. Bravo recommends increasing Dilantin 130 mg p.o. 3 times daily -MRI reviewed and shows no acute abnormality -seizure precautions -Ativan if needed Hyperlipidemia -Continue statin Chronic hyponatremia Stable Likely secondary to SSRI Hypokalemia Replete with KCl in IV fluids -Encourage p.o. intake. Depression Continue home Zoloft Could be contributing to pseudodementia since patient worse than baseline Now refusing PO DVT prophylaxis: Heparin Discussed Condition With: Patient and ward clerk Planning: When stable S/P LP, no infection rest of results pending Increased Dilantin to 130 mg 3 times daily by mouth. Cleared by neurology for discharge. Plan to discharge to snf facility. Discharge in stable condition to follow with PCP and consultants as outpatient.
[2017-11-21] MEDS: amLODIPine 10 MG Tablet PO SCH (08:42)
[2017-11-21] MEDS: Phenytoin Sodium 100 MG Capsule PO SCH ×2 (08:43→12:00)
[2017-11-21] MEDS: Lactobacillus Acidophilus/L. Spores Tablet PO SCH (08:43)
[2017-11-21] MEDS: Sertraline 100 MG Tablet PO SCH (08:43)
[2017-11-21] MEDS: Nystatin 100,000 UNITS/GM Powder 15 GM Bottle TOPICAL SCH (08:44)
[2017-11-21 09:57] VITALS: TEMP 97.9
--- NOTE | 2017-11-21 10:59 | P.PN ---
Subjective Interval history: In bed more awake and alert. Less suspicious today. More conversant. Pleasantly confused. Physical Exam Vital signs: Vital Signs 11/20/17 12:00 11/20/17 16:00 11/20/17 20:00 Temperature 97.8 F 97.7 F 98.1 F Pulse Rate 80 81 82 Respiratory Rate 16 16 18 Blood Pressure 101/56 L 171/71 H 145/67 H Pulse Oximetry 94 L 94 L 94 L 11/21/17 00:00 11/21/17 00:38 11/21/17 05:45 Temperature 98.3 F Pulse Rate 80 Respiratory Rate 18 18 17 Blood Pressure 136/63 Pulse Oximetry 95 11/21/17 08:00 Temperature 97.9 F Pulse Rate Respiratory Rate 13 Blood Pressure 157/71 H Pulse Oximetry 95 Intake & Output 11/20/17 11/21/17 11/21/17 18:59 06:59 18:59 Intake Total 580 / 580 Balance 580 / 580 Weight 45.9 kg Intake: IV 100 / 100 Rocephin Inj 1,000 MG In NS Inj 100 / 100 100 ML @ 200 mls/hr IV.SIG Q24H [facility] Rx#:[id number] Oral 480 / 480 Other: # Voids 2 3 Date of Last Bowel Movement 11/19/17 11/19/17 Narrative: GENERAL: Pleasant elderly female, in NAD CARDIOVASCULAR: Regular rate and rhythm. RESPIRATORY: No accessory muscle use. Clear to auscultation. GASTROINTESTINAL: Abdomen soft, non-tender, nondistended. MUSCULOSKELETAL: Extremities without clubbing, cyanosis, or edema. NEUROLOGICAL: Awake and alert oriented x 3. Follows commands. No focal deficit. PSYCHIATRIC: Co-operative, alert and awake. Results - Labs CBC & Chem 7: 11/17/17 06:06 11/17/17 06:06 Laboratory Results - last 24 hr 11/17/17 11/17/17 11/21/17 11:23 11:23 05:41 CSF WBC (1) 1 CSF RBC (1) 176 H CSF Lymphocytes % 100 Ser Oligoclonal Bands 4 CSF Oligoclonal Bands 4 CSF Olig Protein Interp 0 Phenytoin 19.6 Microbiology 11/17/17 11:23 Lumbar Puncture Gram Stain - Final 11/17/17 11:23 Lumbar Puncture CSF Culture - Final No growth in 72 hours - Procedures none Assessment and Plan - Assessment (1) Urinary tract infection Code(s): N39.0 - Urinary tract infection, site not specified Status: Acute (2) Hypertensive urgency Code(s): I16.0 - Hypertensive urgency Status: Resolved (3) Metabolic encephalopathy Code(s): G93.41 - Metabolic encephalopathy Status: Acute - Plan 82-year-old female with dementia, hypertension, and hyperlipidemia admitted secondary to urinary tract infection with encephalopathy and hypertensive urgency. UTI UA on admission notable for positive nitrates and leukocyte esterase Culture growing Enterobacter sensitive to cephalosporins Had been transitioned to PO Keflex but now refusing meds so will restart Rocephin Metabolic encephalopathy. 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 CSF no signs of infection, ff up results - Monitor dilantin level . Dilantin increased to 130 mg per neurology. Hypertension, improving BP still mildly elevated Continue losartan and Norvasc Continue monitor Refusing PO now. Cont Vasotec IV PRN -Cont clonidine patch Seizure on 11/15 -Loaded with Keppra -Dr. Bravo recommends increasing Dilantin 130 mg p.o. 3 times daily -MRI reviewed and shows no acute abnormality -seizure precautions -Ativan if needed Hyperlipidemia -Continue statin Chronic hyponatremia Stable Likely secondary to SSRI Hypokalemia Replete with KCl in IV fluids -Encourage p.o. intake. 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 Cleared by neurology for discharge. Plan to discharge to assisted facility. Discharge in stable condition to follow with PCP and consultants as outpatient.
[2017-11-21 14:17] VITALS: BP 142/73; PULSE 78; RESP 16; O2SAT 98
== END 2017-11-21 13:05 ==
LOC: NEPE 09:39 → NEDA 12:43 → N06 14:36
PROVIDERS: ADMIT Hospitalist; ATTEND Hospitalist